=== PATIENT | female | born 1945 | race Caucasian/White ===

== ENCOUNTER → 2017-05-08 09:48 | Outpatient (CLI) | payer MEDICARE, OTHER, SELFPAY ==
[2017-05-08 10:32] LABS: Absolute Lymphocyte Count 1.35 X10^3/ul (0.83-4.51); Absolute Neutrophil Count 5.4 X10^3/uL (2.0-7.7); Basophil# 0.03 X10^3/uL; Basophil% 0.4 % (0-1); Eosinophil# 0.33 X10^3/uL; Hematocrit 36.7 % (37-47); Hemoglobin 11.5 g/dl (12.0-15.0); Lymphocyte # 1.35 X10^3/ul (4.0); Lymphocyte % 16.5 % (19-41); Mean Corp Hgb Conc 31.3 g/gl (32-36); Mean Corpuscular Volume 89.3 fL (81-99); Mean Platelet Vol. 10.3 fl (6.2-12.0); Monocyte# 0.97 X10^3/uL; Monocyte% 11.9 % (0-10); Neutrophil # 5.42 X10^3/uL (2.7-7.7); Neutrophil % 66.5 % (47-70); Platelet Count 445 K/mm3 (150-450); RBC Distribution Width CV 15.9 % (11.6-14.6); RBC Distribution Width SD 51.4 fl (35.1-43.9); Red Blood Count 4.11 M/mm3 (4.2-5.4); White Blood Count 8.2 K/mm3 (4.4-11.0)
[2017-05-08 10:34] LABS: POSITIVE COUNT NO; POSITIVE DIFFERENTIAL NO; POSITIVE MORPHOLOGY NO
[2017-05-08 11:05] LABS: ALB/GLOB Ratio 0.8 RATIO (0.9-2.4); AST(SGOT) 27 U/L (15-37); Alanine Aminotransfer ALT/SGPT 18 U/L (13-56); Albumin, Serum 3.2 g/dL (3.2-5.0); Alkaline Phosphatase 79 U/L (45-117); Anion Gap 7 (5-15); BUN 16 mg/dL (7-18); BUN/Creat Ratio 9.5 RATIO (10-20); Calcium,Total 9.1 mg/dL (8.5-10.1); Chloride 104 mmol/L (98-107); Creatinine, Serum 1.68 mg/dL (0.55-1.02); EST Glomerular Filtration Rate 32 mL/min (>60); Est Glom Filt Rate - Afr Amer 38 mL/min (>60); Glucose 90 mg/dL (74-106); Potassium 4.6 mmol/L (3.5-5.1); Protein, Total 7.2 g/dL (6.4-8.2); Sodium Level 140 mmol/L (136-145)
== END ==
PROVIDERS: Family Provider Family Medicine; PCP Family Medicine; Visit Provider Internal Medicine Rheumatology
DX: M06.4 Inflammatory polyarthropathy (principal); M15.9 Polyosteoarthritis, unspecified; M72.0 Palmar fascial fibromatosis [Dupuytren]; M25.511 Pain in right shoulder; Z79.899 Other long term (current) drug therapy
CPT/HCPCS: 36415; 80053; 85025

== ENCOUNTER → 2017-08-14 10:46 | Outpatient (CLI) | payer MEDICARE, OTHER, SELFPAY ==
--- NOTE | 2017-08-14 10:46 | DT_ITS ---
This patient was seen during an EMR downtime August 13, 2017 - August 20, 2017. This patient may have a combination of paper and electronic documentation or all paper documentation. All documentation is viewable within the e-chart portion of [facility] for each patient visit.
[2017-08-20 16:29] LABS: White Blood Count 6.7 K/mm3 (4.4-11.0)
[2017-08-20 16:30] LABS: Hematocrit 37.7 % (37-47); Hemoglobin 11.8 g/dl (12.0-15.0); Mean Corp Hgb Conc 31.3 g/gl (32-36); Mean Corpuscular Hgb 28.6 pg (27.0-32.0); Mean Corpuscular Volume 91.5 fL (81-99); Mean Platelet Vol. 10.1 fl (6.2-12.0); POSITIVE COUNT NO; POSITIVE DIFFERENTIAL NO; POSITIVE MORPHOLOGY NO; Platelet Count 423 K/mm3 (150-450); RBC Distribution Width CV 16.1 % (11.6-14.6); RBC Distribution Width SD 53.1 fl (35.1-43.9); Red Blood Count 4.12 M/mm3 (4.2-5.4)
[2017-08-20 16:31] LABS: Absolute Neutrophil Count 4.4 X10^3/uL (2.0-7.7); Basophil# 0.06 X10^3/uL; Basophil% 0.9 % (0-1); Eosinophil# 0.23 X10^3/uL; Eosinophils% 3.5 % (0-5); Lymphocyte % 16.5 % (19-41); Monocyte# 0.81 X10^3/uL; Monocyte% 12.2 % (0-10)
[2017-08-20 17:25] LABS: ALB/GLOB Ratio 0.8 RATIO (0.9-2.4); AST(SGOT) 21 U/L (15-37); Alanine Aminotransfer ALT/SGPT 18 U/L (13-56); Albumin, Serum 3.2 g/dL (3.2-5.0); Alkaline Phosphatase 71 U/L (45-117); Anion Gap 7 (5-15); BUN 17 mg/dL (7-18); BUN/Creat Ratio 9.8 RATIO (10-20); Calcium,Total 9.1 mg/dL (8.5-10.1); Chloride 107 mmol/L (98-107); Creatinine, Serum 1.74 mg/dL (0.55-1.02); EST Glomerular Filtration Rate 30 mL/min (>60); Est Glom Filt Rate - Afr Amer 36 mL/min (>60); Globulin 3.9 g/dL (2.2-4.2); Glucose 90 mg/dL (74-106); Potassium 4.4 mmol/L (3.5-5.1); Protein, Total 7.1 g/dL (6.4-8.2); Sodium Level 143 mmol/L (136-145)
== END ==
PROVIDERS: Family Provider Family Medicine; PCP Family Medicine; Visit Provider Internal Medicine Rheumatology
DX: M06.4 Inflammatory polyarthropathy (principal); M15.9 Polyosteoarthritis, unspecified; M25.511 Pain in right shoulder; M72.0 Palmar fascial fibromatosis [Dupuytren]; E78.5 Hyperlipidemia, unspecified; I26.99 Other pulmonary embolism without acute cor pulmonale; C44.202 Unspecified malignant neoplasm of skin of right ear and external auricular canal; I12.9 Hypertensive chronic kidney disease with stage 1 through stage 4 chronic kidney disease, or unspecified chronic kidney disease; N18.9 Chronic kidney disease, unspecified; Z79.899 Other long term (current) drug therapy
CPT/HCPCS: 36415; 80053; 85025

== ENCOUNTER → 2017-10-30 11:30 | Outpatient (CLI) | payer MEDICARE, OTHER, SELFPAY ==
[2017-10-30 12:22] LABS: Absolute Neutrophil Count 5.8 X10^3/uL (2.0-7.7); Basophil# 0.05 X10^3/uL; Basophil% 0.6 % (0-1); Eosinophil# 0.34 X10^3/uL; Eosinophils% 4.1 % (0-5); Hematocrit 32.5 % (37-47); Hemoglobin 10.1 g/dl (12.0-15.0); Lymphocyte % 14.4 % (19-41); Mean Corp Hgb Conc 31.1 g/gl (32-36); Mean Corpuscular Hgb 28.1 pg (27.0-32.0); Mean Corpuscular Volume 90.5 fL (81-99); Mean Platelet Vol. 10.5 fl (6.2-12.0); Monocyte# 0.95 X10^3/uL; Monocyte% 11.4 % (0-10); Neutrophil # 5.78 X10^3/uL (2.7-7.7); Neutrophil % 69.1 % (47-70); Platelet Count 419 K/mm3 (150-450); RBC Distribution Width CV 15.4 % (11.6-14.6); RBC Distribution Width SD 50.1 fl (35.1-43.9); Red Blood Count 3.59 M/mm3 (4.2-5.4); White Blood Count 8.4 K/mm3 (4.4-11.0)
[2017-10-30 12:23] LABS: POSITIVE COUNT NO; POSITIVE DIFFERENTIAL NO; POSITIVE MORPHOLOGY NO
[2017-10-30 12:54] LABS: ALB/GLOB Ratio 0.8 RATIO (0.9-2.4); AST(SGOT) 22 U/L (15-37); Alanine Aminotransfer ALT/SGPT 17 U/L (13-56); Alkaline Phosphatase 71 U/L (45-117); Anion Gap 9 (5-15); BUN 19 mg/dL (7-18); BUN/Creat Ratio 10.5 RATIO (10-20); Calcium,Total 8.9 mg/dL (8.5-10.1); Chloride 110 mmol/L (98-107); Creatinine, Serum 1.81 mg/dL (0.55-1.02); EST Glomerular Filtration Rate 29 mL/min (>60); Est Glom Filt Rate - Afr Amer 35 mL/min (>60); Globulin 3.8 g/dL (2.2-4.2); Glucose 87 mg/dL (74-106); Potassium 3.3 mmol/L (3.5-5.1); Protein, Total 6.8 g/dL (6.4-8.2); Sodium Level 146 mmol/L (136-145)
== END ==
PROVIDERS: Family Provider Family Medicine; PCP Family Medicine; Visit Provider Internal Medicine Rheumatology
DX: M06.4 Inflammatory polyarthropathy (principal); M72.0 Palmar fascial fibromatosis [Dupuytren]; M15.9 Polyosteoarthritis, unspecified; M25.511 Pain in right shoulder; Z79.899 Other long term (current) drug therapy
CPT/HCPCS: 36415; 80053; 85025

== ENCOUNTER → 2017-11-27 10:46 | Outpatient (CLI) | payer MEDICARE, OTHER, SELFPAY ==
[2017-11-27 12:15] LABS: Absolute Lymphocyte Count 1.09 X10^3/ul (0.83-4.51); Absolute Neutrophil Count 6.3 X10^3/uL (2.0-7.7); Basophil# 0.02 X10^3/uL; Basophil% 0.2 % (0-1); Eosinophil# 0.28 X10^3/uL; Eosinophils% 3.1 % (0-5); Hematocrit 38.3 % (37-47); Immature Platelet Fraction 1.2 % (1.0-7.9); Lymphocyte # 1.09 X10^3/ul (4.0); Lymphocyte % 12.2 % (19-41); Mean Corp Hgb Conc 31.3 g/gl (32-36); Mean Corpuscular Hgb 27.4 pg (27.0-32.0); Mean Corpuscular Volume 87.4 fL (81-99); Monocyte# 1.19 X10^3/uL; Monocyte% 13.4 % (0-10); Neutrophil # 6.31 X10^3/uL (2.7-7.7); Neutrophil % 70.9 % (47-70); Platelet Count 472 K/mm3 (150-450); RBC Distribution Width CV 15.7 % (11.6-14.6); RBC Distribution Width SD 49.6 fl (35.1-43.9); RET-HE 29.5 pg (30-35); Red Blood Count 4.38 M/mm3 (4.2-5.4); Reticulocyte Count 1.26 % (0.5-1.5); White Blood Count 8.9 K/mm3 (4.4-11.0)
[2017-11-27 12:30] LABS: POSITIVE COUNT NO; POSITIVE DIFFERENTIAL NO; POSITIVE MORPHOLOGY NO
[2017-11-27 12:58] LABS: Anion Gap 10 (5-15); BUN 14 mg/dL (7-18); Calcium,Total 9.4 mg/dL (8.5-10.1); Chloride 105 mmol/L (98-107); Creatinine, Serum 1.76 mg/dL (0.55-1.02); EST Glomerular Filtration Rate 30 mL/min (>60); Est Glom Filt Rate - Afr Amer 36 mL/min (>60); Ferritin 27 ng/mL (8-252); Glucose 84 mg/dL (74-106); Iron 36 ug/dL (50-170); Potassium 3.2 mmol/L (3.5-5.1); Sodium Level 141 mmol/L (136-145)
[2017-11-27 13:15] LABS: Vitamin B12 > 2000 pg/mL (211-911)
[2017-11-27 15:43] LABS: Microalbumin,Random Urine 87.3 mg/L (NO RANGE EST.); Microalbumin:Creatinine Ratio 48.5 mg/g CRE (<30 mg/g CRE)
== END ==
PROVIDERS: Family Provider Family Medicine; PCP Family Medicine; Visit Provider Family Medicine
DX: I12.9 Hypertensive chronic kidney disease with stage 1 through stage 4 chronic kidney disease, or unspecified chronic kidney disease (principal); N18.4 Chronic kidney disease, stage 4 (severe); D63.1 Anemia in chronic kidney disease
CPT/HCPCS: 36415; 80048; 82043; 82570; 82607; 82728; 83540; 85025; 85045

== ENCOUNTER → 2018-01-28 13:08 | Outpatient (CLI) | payer MEDICARE, OTHER, SELFPAY ==
[2018-01-28 14:07] LABS: Absolute Lymphocyte Count 1.47 X10^3/ul (0.83-4.51); Absolute Neutrophil Count 7.3 X10^3/uL (2.0-7.7); Basophil# 0.03 X10^3/uL; Basophil% 0.3 % (0-1); Eosinophil# 0.32 X10^3/uL; Eosinophils% 3.1 % (0-5); Hematocrit 36.3 % (37-47); Hemoglobin 11.2 g/dl (12.0-15.0); Lymphocyte # 1.47 X10^3/ul (4.0); Lymphocyte % 14.4 % (19-41); Mean Corp Hgb Conc 30.9 g/gl (32-36); Mean Corpuscular Hgb 27.4 pg (27.0-32.0); Mean Corpuscular Volume 88.8 fL (81-99); Mean Platelet Vol. 10.2 fl (6.2-12.0); Monocyte# 0.99 X10^3/uL; Monocyte% 9.7 % (0-10); Neutrophil # 7.28 X10^3/uL (2.7-7.7); Neutrophil % 71.5 % (47-70); Platelet Count 499 K/mm3 (150-450); RBC Distribution Width CV 16.3 % (11.6-14.6); RBC Distribution Width SD 51.9 fl (35.1-43.9); Red Blood Count 4.09 M/mm3 (4.2-5.4); White Blood Count 10.2 K/mm3 (4.4-11.0)
[2018-01-28 14:08] LABS: POSITIVE COUNT NO; POSITIVE DIFFERENTIAL NO; POSITIVE MORPHOLOGY NO
[2018-01-28 14:34] LABS: ALB/GLOB Ratio 0.8 RATIO (0.9-2.4); AST(SGOT) 20 U/L (15-37); Alanine Aminotransfer ALT/SGPT 15 U/L (13-56); Albumin, Serum 3.2 g/dL (3.2-5.0); Alkaline Phosphatase 98 U/L (45-117); Anion Gap 10 (5-15); BUN 14 mg/dL (7-18); Calcium,Total 9.2 mg/dL (8.5-10.1); Chloride 107 mmol/L (98-107); Creatinine, Serum 1.74 mg/dL (0.55-1.02); EST Glomerular Filtration Rate 30 mL/min (>60); Est Glom Filt Rate - Afr Amer 37 mL/min (>60); Globulin 4.1 g/dL (2.2-4.2); Glucose 88 mg/dL (74-106); Potassium 4.8 mmol/L (3.5-5.1); Protein, Total 7.3 g/dL (6.4-8.2); Sodium Level 143 mmol/L (136-145)
[2018-01-28 14:38] LABS: Vitamin D,25 Hydroxy 42.2 ng/mL (29.95-100.01)
== END ==
PROVIDERS: Family Provider Family Medicine; PCP Family Medicine; Referring Provider Internal Medicine Nephrology; Visit Provider Internal Medicine Nephrology
DX: I12.9 Hypertensive chronic kidney disease with stage 1 through stage 4 chronic kidney disease, or unspecified chronic kidney disease (principal); N18.3 Chronic kidney disease, stage 3 (moderate); M06.4 Inflammatory polyarthropathy; C44.202 Unspecified malignant neoplasm of skin of right ear and external auricular canal; M15.9 Polyosteoarthritis, unspecified; M25.511 Pain in right shoulder; M72.0 Palmar fascial fibromatosis [Dupuytren]; E78.5 Hyperlipidemia, unspecified; Z86.711 Personal history of pulmonary embolism
CPT/HCPCS: 36415; 80053; 82306; 85025

== ENCOUNTER → 2018-02-14 06:36 | Outpatient (CLI) | payer MEDICARE, OTHER, SELFPAY ==
--- NOTE | 2018-02-14 06:40 | CT_ITS ---
STUDY: CT RIGHT SHOULDER REASON FOR EXAM: Pain, osteoarthritis, surgical planning. TECHNIQUE: The patient was scanned in a multi detector CT scanner. High resolution transaxial imaging was performed without the administration of intravenous contrast material. Sagittal and coronal images were reconstructed. Individualized dose optimization techniques were used for this CT. COMPARISON: Radiographs 11/15/2016. FINDINGS: There is joint space narrowing of the glenohumeral articulation (coronal reconstructions 35-38) and small marginal osteophytes of the medial humeral head. Normal glenoid rim, neck and visualized scapula. Normal humeral head, neck and tuberosities. There is superior migration of the humeral head abutting the acromion (sagittal reconstructions 28-31) consistent with retracted rotator cuff tear. There is acromioclavicular arthrosis with a small undersurface osteophyte of the distal clavicle (coronal reconstructions 34, 35). There is a Type III morphology (anterior hook) (sagittal reconstruction 31), with a neutral orientation. There is a glenohumeral joint effusion with small intra-articular bodies (coronal reconstruction 29; axial image 69). There is atrophy with fat replacement of the supraspinatus, infraspinatus and subscapularis muscles (sagittal reconstruction 49). There is scarring in the right lung apex (coronal reconstructions 49-53). 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 Superior migration of the humeral head consistent with retracted rotator cuff tear with atrophy of the supraspinatus, infraspinatus and subscapularis muscles. Acromioclavicular arthrosis. Electronically Signed: Paxton Guy MD at 10:23 EST Tel , Service support ,
== END ==
PROVIDERS: Family Provider Family Medicine; PCP Family Medicine; Referring Provider Specialist; Visit Provider Specialist
DX: M19.211 Secondary osteoarthritis, right shoulder (principal)
CPT/HCPCS: 73200

== ENCOUNTER → 2018-03-18 11:14 | Outpatient (CLI) | payer MEDICARE, OTHER, SELFPAY ==
[2018-03-18 13:51] LABS: Anion Gap 10 (5-15); BUN 13 mg/dL (7-18); BUN/Creat Ratio 6.8 RATIO (10-20); Calcium,Total 9.2 mg/dL (8.5-10.1); Chloride 105 mmol/L (98-107); Creatinine, Serum 1.91 mg/dL (0.55-1.02); EST Glomerular Filtration Rate 27 mL/min (>60); Est Glom Filt Rate - Afr Amer 33 mL/min (>60); Glucose 80 mg/dL (74-106); Potassium 4.1 mmol/L (3.5-5.1); Sodium Level 140 mmol/L (136-145)
[2018-03-18 14:04] LABS: Absolute Lymphocyte Count 1.42 X10^3/ul (0.83-4.51); Absolute Neutrophil Count 6.8 X10^3/uL (2.0-7.7); Basophil# 0.03 X10^3/uL; Basophil% 0.3 % (0-1); Eosinophil# 0.12 X10^3/uL; Eosinophils% 1.3 % (0-5); Hematocrit 39.3 % (37-47); Lymphocyte # 1.42 X10^3/ul (4.0); Lymphocyte % 15.1 % (19-41); Mean Corp Hgb Conc 30.5 g/gl (32-36); Mean Corpuscular Hgb 27.1 pg (27.0-32.0); Mean Corpuscular Volume 88.7 fL (81-99); Mean Platelet Vol. 10.6 fl (6.2-12.0); Monocyte% 10.7 % (0-10); Neutrophil # 6.77 X10^3/uL (2.7-7.7); Neutrophil % 72.2 % (47-70); Platelet Count 454 K/mm3 (150-450); RBC Distribution Width CV 15.7 % (11.6-14.6); Red Blood Count 4.43 M/mm3 (4.2-5.4); White Blood Count 9.4 K/mm3 (4.4-11.0)
[2018-03-18 14:07] LABS: POSITIVE COUNT NO; POSITIVE DIFFERENTIAL NO; POSITIVE MORPHOLOGY NO
== END ==
PROVIDERS: Family Provider Family Medicine; PCP Family Medicine; Referring Provider Physician Assistant Surgical; Visit Provider Physician Assistant Surgical
DX: Z01.818 Encounter for other preprocedural examination (principal); Z01.810 Encounter for preprocedural cardiovascular examination
CPT/HCPCS: 36415; 80048; 85025

== ENCOUNTER → 2018-03-27 15:26 | Outpatient (CLI) | payer MEDICARE, OTHER, SELFPAY ==
[2018-03-29 16:12] LABS: Endomysial Antibody IgA Negative (Negative)
[2018-03-30 11:17] LABS: Immunoglobulin A 92 mg/dL (64-422); t-Transglutaminase IgA <2 U/mL (0-3)
--- OUTSIDE RECORDS SUMMARY | 2018-06-01 14:48 | XMS RPT_ITS ---
:1945 Author Organization OHIP Care Team Providers Name Role Phone FRANC LOPEZ MD Attending Unavailable FLACA CABRERA MD. LILY Barragan Consulting Unavailable FRANC LOPEZ MD Admitting Unavailable FRANC LOPEZ MD Attending Unavailable Jose Leahy PA-C Attending Unavailable Jose Leahy PA-C Referring Unavailable Beka, Uriah Primary [facility] Unavailable Franc Lopez Consulting Unavailable Gagan Silver Attending Unavailable Gagan Silver Referring Unavailable Beka, Uriah Primary Care Unavailable Madeleine Avalos Attending Unavailable Madeleine Avalos Referring Unavailable BekaUriah Primary Care Unavailable [facility]Uri[facility] Vellanki, Madeleine Attending Unavailable Vellanki, Madeleine Referring Unavailable BekaUriah byrd Primary Care Unavailable Vellanki, Madeleine Attending Unavailable Vellanyuri, Madeleine Referring Unavailable BekaUriah byrd Primary Care Unavailable Yudith Rader Attending Unavailable Beka, Uriah Primary Care Unavailable GaryYudith Referring Unavailable Vellanki, Madeleine Consulting Unavailable Franc Lopez Attending Unavailable Franc Lopez Referring Unavailable BekaUriah byrd Primary Care Unavailable PROBLEMS PROBLEMS DATE TYPE CONDITION / CODE ATTENDING STATUS SOURCE 03/18/2018 Unknown Z01.818 - Encounter Esgrantaucristhian [facility] for other Jose RAJPUT [facility] preprocedural Hospital examination / Repository Z01.818(ICD-10) 11/27/2017 Unknown N18.4 - Chronic Uriah Ireland [facility] kidney disease, stage Community 4 (severe) / Hospital N18.4(ICD-10) Repository 11/27/2017 Unknown I10 - Essential Uriah Ireland [facility] (primary) [facility] hypertension / Hospital I10(ICD-10) Repository 11/27/2017 Unknown D63.1 - Anemia in Uriah Ireland [facility] chronic kidney Community disease / Hospital D63.1(ICD-10) Repository 10/30/2017 Unknown 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 / Community M06.4(ICD-10) Hospital Repository 10/30/2017 Unknown Z79.899 - Other long Madeleine Avalos [facility] term (current) drug Community therapy / Hospital Z79.899(ICD-10) Repository 10/30/2017 Unknown M25.511 - Pain in Madeleine Avalos [facility] right shoulder / Community M25.511(ICD-10) Hospital Repository PROCEDURES PROCEDURES No Procedure Records FoundRESULTS RESULTS CBC Collected: 04/03/2018 Status: F Source: [facility] 5:33 AM [facility] REPOSITORY TYPE CODE TESTS RESULT OUT OF REFERENCE UNITS RANGE LAB WBC(LOINC) 4.60-10.80 10 3/mcL High WBC 13.00 LAB RBCCT(LOINC 4.20-5.40 10 6/mcL ) Low RBC 3.62 LAB HGB(LOINC) 12.0-16.0 G/dL Low Hgb 9.8 LAB HCT(LOINC) 37.0-47.0 % Low Hct 31.0 LAB MCV(LOINC) 80.0-94.0 fL MCV 85.7 LAB MCH(LOINC) 27.0-31.2 pg MCH 27.2 LAB MCHC(LOINC) 33.0-37.0 G/dL Low MCHC 31.7 LAB RDW(LOINC) 11.5-14.5 % High RDW 15.6 LAB PLT(LOINC) 130-400 10 3/mcL Platelet 360 LAB MPV(LOINC) 7.4-10.4 fL MPV 8.4 Performed By: #### CBC, ADIFF, ANEU #### [address] [address] #### BMP, GFR #### [address] [address] .AUTO DIFF Collected: 04/03/2018 Status: F Source: [facility] 5:33 [facility] [place] REPOSITORY TYPE CODE TESTS RESULT OUT OF REFERENCE UNITS RANGE LAB PROSPER(LOINC) 37.0-80.0 % High Neutrophil % 91.5 LAB LYM(LOINC) 10.0-50.0 % Low Lymphocyte % 4.7 LAB MON(LOINC) 1.7-13.0 % Monocyte % 3.7 LAB EO(LOINC) 0.0-7.0 % Eosinophil % 0.0 LAB BAS(LOINC) 0.0-2.5 % Basophil % 0.1 LAB ABLYM(LOIN 0.77-3.85 10 3/mcL C) Low Lymphocyte, 0.60 Absolute LAB JESSI(LOINC 0.15-1.00 10 3/mcL ) Monocyte, 0.50 Absolute LAB AEOS(LOINC 0.00-0.40 10 3/mcL ) Eosinophil, 0.00 Absolute LAB ABAS(LOINC 0.00-0.19 10 3/mcL ) Basophil, 0.00 Absolute Performed By: #### CBC, ADIFF, ANEU #### [address] [address] #### BMP, GFR #### [address] [address] .NEUABS Collected: 04/03/2018 Status: F Source: [facility] 5:33 [facility] [place] REPOSITORY TYPE CODE TESTS RESULT OUT OF REFERENCE UNITS RANGE LAB ANEU(LOINC) 2.85-6.16 10 3/mcL High Neutrophil, 11.90 Absolute Performed By: #### CBC, ADIFF, ANEU #### [address] [address] #### BMP, GFR #### [address] [address] BMP Collected: 04/03/2018 Status: F Source: [facility] 5:33 AM [facility] REPOSITORY TYPE CODE TESTS RESULT OUT OF REFERENCE UNITS RANGE LAB GLU(LOINC) 83-110 mg/dL Glucose High Level 128 LAB NA(LOINC) 136-145 mmol/L Sodium Level 143 LAB K(LOINC) 3.5-5.1 mmol/L Potassium Level 4.3 LAB CL(LOINC) 98-107 mmol/L Chloride High 109 LAB CO2(LOINC) 23-31 mmol/L CO2 23 LAB EBAL(LOINC mEq/L ) Electrolyte Balance 11.0 LAB BUN(LOINC) 7-18 mg/dL BUN 16 LAB CRE(LOINC) 0.55-1.02 mg/dL Creatinine High Lvl (s) 1.75 LAB BC(LOINC) 7-27 ratio BUN/Creatinine 9 Ratio LAB CA(LOINC) 8.4-10.2 mg/dL Low Calcium Lvl 8.3 Performed By: #### CBC, ADIFF, ANEU #### [address] [address] #### BMP, GFR #### [address] [address] .GFR Collected: 04/03/2018 Status: F Source: [facility] 5:33 AM [facility] REPOSITORY TYPE CODE TESTS RESULT OUT OF REFERENCE UNITS RANGE LAB GFRAA(LOINC ml/min/1.73 ) sqm GFR 34 Stateless Result Comment: GFR Population mean for , Non- Americans Ages 20-29 = 116 mL/min/1.73 sq.m. Ages 30-39 = 107 mL/min/1.73 sq.m. Ages 40-49 = 99 mL/min/1.73 sq.m. Ages 50-59 = 93 mL/min/1.73 sq.m. Ages 60-69 = 85 mL/min/1.73 sq.m. Ages 70+ = 75 mL/min/1.73 sq.m. Chronic Kidney Disease: Less than 60 mL/min/1.73 square meters End Stage Renal Disease: Less than 15 mL/min/1.73 square meters LAB GFRNO(LOINC) ml/min/1.73sqm GFR Non- 28 Result Comment: GFR Population mean for , Non- Americans Ages 20-29 = 116 mL/min/1.73 sq.m. Ages 30-39 = 107 mL/min/1.73 sq.m. Ages 40-49 = 99 mL/min/1.73 sq.m. Ages 50-59 = 93 mL/min/1.73 sq.m. Ages 60-69 = 85 mL/min/1.73 sq.m. Ages 70+ = 75 mL/min/1.73 sq.m. Chronic Kidney Disease: Less than 60 mL/min/1.73 square meters End Stage Renal Disease: Less than 15 mL/min/1.73 square meters Performed By: #### CBC, ADIFF, ANEU #### [facility] [address] [place], [place] [address] #### BMP, GFR #### [address] [address] XR SHOULDER MINIMUM 2 Observed: 04/02/2018 Status: F Source: [facility] VIEWS RIGHT 11:34 AM [facility] REPOSITORY ORIGINAL XR SHOULDER MINIMUM 2 VIEWS RIGHT CLINICAL STATEMENT: Status Post Arthroplasty. COMPARISON: None FINDINGS: There is a shoulder prosthesis. The components appear intact and well seated. No acute fracture or dislocation is shown. There are degenerative changes at the acromioclavicular joint. Included intrathoracic contents are unremarkable. Surgical clips are seen in the neck. IMPRESSION: Postoperative changes. Interpreted By: Kisha Jaime MD Preliminary Report By: Kisha Jaime MD Electronically Signed By: Kisha Jaime MD Dictated Date: 04/02/2018 3:35:48 PM Prelim Date: 04/02/2018 3:35:48 PM Sign Date: 04/02/2018 3:36:28 PM CRP Collected: 03/27/2018 Status: F Source: [facility] 3:32 PM [facility] REPOSITORY TYPE CODE TESTS RESULT OUT OF RANGE REFERENCE UNITS LAB L501.6710 0.0-3.0 mg/L High 18.10 C-REACTIVE PROT Result Comment: C-Reactive Protein (CRP) provides useful information for the diagnosis, therapy and monitoring of inflammatory processes and associated diseases. For the evaluation of Relative Risk for Cardiovascular Disease, a High Sensitivity CRP (HSCRP) should be ordered. Performed By: #### L501.6710 #### [facility] [address] [place], [place], [address] CELIAC DISEASE Collected: 03/27/2018 Status: F Source: [facility] 3:32 PM [facility] REPOSITORY TYPE CODE TESTS RESULT OUT OF RANGE REFERENCE UNITS LAB L3200.1400 64-422 mg/dL Normal IMMUNO A 92 Result Comment: Performed at: [facility] [id number] Political Science Research Assistant: Gagan Katz PhD, Phone: [phone] LAB L3416.5623 0-3 U/mL Normal tTG IGA <2 Result Comment: Negative 0 - 3 Weak Positive 4 - 10 Positive >10 Tissue Transglutaminase (tTG) has been identified as the endomysial antigen. Studies have demonstr- ated that endomysial IgA antibodies have over 99% specificity for gluten sensitive enteropathy. LAB L3410.2975 Negative Normal ENDOMYSIAL IGA Negative Performed By: #### L3410.2400 #### [facility] (refer to report for specific site) refer to report for address and phone number BASIC METABOLIC Collected: 03/18/2018 Status: F Source: [place] PROFILE (BMP) 11:18 AM [facility] REPOSITORY TYPE CODE TESTS RESULT OUT OF RANGE REFERENCE UNITS LAB L501.0100 74-106 mg/dL Normal GLU 80 Result Comment: Please note revised GLUCOSE reference range effective 2017. LAB L501.1000 7-18 mg/dL Normal BUN 13 LAB L501.1100 0.55-1.02 mg/dL High CREAT,SERUM 1.91 Result Comment: The validity of the calculated GFR AND GFRAA in patients over 70 years has not been determined. Clinical correlation is essential. LAB L501.1110 >60 mL/min Low EST GFR 27 Result Comment: Non- GFR Calc LAB L501.1115 >60 mL/min Low EST GFR - AA 33 Result Comment: GFR Calc LAB L501.1300 10-20 RATIO Low BUN/CRE 6.8 LAB L501.2200 8.5-10.1 mg/dL Normal CA 9.2 LAB L501.5300 136-145 mmol/L Normal NA 140 LAB L501.5600 3.5-5.1 mmol/L Normal K 4.1 LAB L501.5900 98-107 mmol/L Normal CL 105 LAB L501.6100 21.0-32.0 mmol/L Normal CO2 25.0 LAB L501.6200 5-15 Normal GAP 10 Performed By: #### L500.2500 #### [facility] [address] [place], [place], [id number] CBC W/DIFF, AUTOMATED Collected: 03/18/2018 Status: F Source: [place] 11:18 AM [facility] REPOSITORY TYPE CODE TESTS RESULT OUT OF RANGE REFERENCE UNITS LAB L100.1000 4.4-11.0 K/mm3 Normal WBC 9.4 LAB L100.1200 4.2-5.4 M/mm3 Normal RBC 4.43 LAB L100.1300 12.0-15.0 g/dl Normal HGB 12.0 LAB L100.1400 37-47 % Normal HCT 39.3 LAB L100.1500 81-99 fL Normal MCV 88.7 LAB L100.1600 27.0-32.0 pg Normal MCH 27.1 LAB L100.1700 32-36 g/gl Low MCHC 30.5 LAB L100.1810 11.6-14.6 % High RDW CV 15.7 LAB L100.1820 35.1-43.9 fl High RDW SD 51.0 LAB L100.1900 150-450 K/mm3 High PLT 454 LAB L100.2000 6.2-12.0 fl Normal MPV 10.6 LAB L100.2100 47-70 % High NEUT% 72.2 LAB L100.2200 19-41 % Low LY% 15.1 LAB L100.2300 0-10 % High MONO% 10.7 LAB L100.2400 0-5 % Normal EO% 1.3 LAB L100.2500 0-1 % Normal BASO% 0.3 LAB L100.2550 0.0-0.9 % Normal IM GRAN % 0.400 Result Comment: IG% - Immature Granulocytes (promyelocytes, myelocytes and metamyelocytes) > 1% indicates that a LEFT SHIFT is Present. LAB L100.2620 2.0-7.7 X10 3/uL Normal Absolute Neut 6.8 LAB L100.2720 0.83-4.51 X10 3/ul Normal Absolute Lymph 1.42 Performed By: #### L100.0100 #### [facility] [address] [facility] [place], [address] EXTREMITY UPPER Observed: 02/14/2018 Status: F Source: [place] WITHOUT CONTRA 6:41 AM [facility] REPOSITORY [facility] Imaging Services [address] [place] [address] Extremity Upper without Contra MR#: [id number] Acct: [id number] Name: MARIALUISA FUNES Rep #: [id number] : 1945 F 72 From: Paxton Guy MD PCP: Uriah Ireland DO Status: REG CLI Study: Extremity Upper without Contra Date of Exam: 02/14/18 Exam# [id number] Ordering Dr: Franc Lopez MD STUDY: CT RIGHT SHOULDER REASON FOR EXAM: Pain, osteoarthritis, surgical planning. TECHNIQUE: The patient was scanned in a multi detector CT scanner. High resolution transaxial imaging was performed without the administration of intravenous contrast material. Sagittal and coronal images were reconstructed. Individualized dose optimization techniques were used for this CT. COMPARISON: Radiographs 11/15/2016. FINDINGS: There is joint space narrowing of the glenohumeral articulation (coronal reconstructions 35-38) and small marginal osteophytes of the medial humeral head. Normal glenoid rim, neck and visualized scapula. Normal humeral head, neck and tuberosities. There is superior migration of the humeral head abutting the acromion (sagittal reconstructions 28-31) consistent with retracted rotator cuff tear. There is acromioclavicular arthrosis with a small undersurface osteophyte of the distal clavicle (coronal reconstructions 34, 35). There is a Type III morphology (anterior hook) (sagittal reconstruction 31), with a neutral orientation. There is a glenohumeral joint effusion with small intra-articular bodies (coronal reconstruction 29; axial image 69). There is atrophy with fat replacement of the supraspinatus, infraspinatus and subscapularis muscles (sagittal reconstruction 49). There is scarring in the right lung apex (coronal reconstructions 49-53). 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 Superior migration of the humeral head consistent with retracted rotator cuff tear with atrophy of the supraspinatus, infraspinatus and subscapularis muscles. Acromioclavicular arthrosis. Electronically Signed: Paxton Guy MD at 10:23 EST Tel , Service support , CC: Uriah Ireland DO; Franc Lopez MD Outcomes Analyst: Signed CBC W/DIFF, AUTOMATED Collected: 01/28/2018 Status: F Source: [facility] 1:28 PM [facility] REPOSITORY Order Comment: BMP AND VITD FOR DR RADER TYPE CODE TESTS RESULT OUT OF RANGE REFERENCE UNITS LAB L100.1000 4.4-11.0 K/mm3 Normal WBC 10.2 LAB L100.1200 4.2-5.4 M/mm3 Low RBC 4.09 LAB L100.1300 12.0-15.0 g/dl Low HGB 11.2 LAB L100.1400 37-47 % Low HCT 36.3 LAB L100.1500 81-99 fL Normal MCV 88.8 LAB L100.1600 27.0-32.0 pg Normal MCH 27.4 LAB L100.1700 32-36 g/gl Low MCHC 30.9 LAB L100.1810 11.6-14.6 % High RDW CV 16.3 LAB L100.1820 35.1-43.9 fl High RDW SD 51.9 LAB L100.1900 150-450 K/mm3 High PLT 499 LAB L100.2000 6.2-12.0 fl Normal MPV 10.2 LAB L100.2100 47-70 % High NEUT% 71.5 LAB L100.2200 19-41 % Low LY% 14.4 LAB L100.2300 0-10 % Normal MONO% 9.7 LAB L100.2400 0-5 % Normal EO% 3.1 LAB L100.2500 0-1 % Normal BASO% 0.3 LAB L100.2550 0.0-0.9 % High IM GRAN % 1.000 Result Comment: IG% - Immature Granulocytes (promyelocytes, myelocytes and metamyelocytes) > 1% indicates that a LEFT SHIFT is Present. LAB L100.2620 2.0-7.7 X10 3/uL Normal Absolute Neut 7.3 LAB L100.2720 0.83-4.51 X10 3/ul Normal Absolute Lymph 1.47 Performed By: #### L100.0100 #### [facility] [address] [place], [place] [address]. [place], [place], [address] COMPREHENSIVE METABOLIC Collected: 01/28/2018 Status: F Source: [facility] 1:28 PM [facility] REPOSITORY Order Comment: BMP AND VITD FOR DR RADER TYPE CODE TESTS RESULT OUT OF RANGE REFERENCE UNITS LAB L501.0100 74-106 mg/dL Normal GLU 88 Result Comment: Please note revised GLUCOSE reference range effective 2017. LAB L501.1000 7-18 mg/dL Normal BUN 14 LAB L501.1100 0.55-1.02 mg/dL High CREAT,SERUM 1.74 Result Comment: The validity of the calculated GFR AND GFRAA in patients over 70 years has not been determined. Clinical correlation is essential. LAB L501.1110 >60 mL/min Low EST GFR 30 Result Comment: Non- GFR Calc LAB L501.1115 >60 mL/min Low EST GFR - AA 37 Result Comment: GFR Calc LAB L501.1300 10-20 RATIO Low BUN/CRE 8.0 LAB L501.1500 6.4-8.2 g/dL Normal T PROT 7.3 LAB L501.1800 3.2-5.0 g/dL Normal ALB 3.2 LAB L501.1950 2.2-4.2 g/dL Normal GLOB 4.1 LAB L501.2000 0.9-2.4 RATIO Low A/G 0.8 LAB L501.2200 8.5-10.1 mg/dL Normal CA 9.2 LAB L501.4100 15-37 U/L Normal AST 20 LAB L501.4305 45-117 U/L Normal ALK P 98 LAB L501.4405 13-56 U/L Normal ALT 15 LAB L501.4600 0.20-1.00 mg/dL Normal T BILI 0.40 LAB L501.5300 136-145 mmol/L Normal NA 143 LAB L501.5600 3.5-5.1 mmol/L Normal K 4.8 LAB L501.5900 98-107 mmol/L Normal CL 107 LAB L501.6100 21.0-32.0 mmol/L Normal CO2 26.0 LAB L501.6200 5-15 Normal GAP 10 Performed By: #### L500.4050 #### [facility] [address] [place], [place], [address] VITAMIN D,25 HYDROXY Collected: 01/28/2018 Status: F Source: [place] 1:28 PM [facility] REPOSITORY Order Comment: BMP AND VITD FOR DR RADER TYPE CODE TESTS RESULT OUT OF RANGE REFERENCE UNITS LAB L506.1000 29.95-100.01 ng/mL Normal Vitamin D 42.2 25-OH Result Comment: Vitamin D 25(OH) Status Range Deficiency <20 ng/mL (50nmol/L) Insuffciency 20 - 30 ng/mL (50 - 75 nmol/L) Sufficiency 30 - 100 ng/mL (75 - 250 nmol/L) Toxicity >100 ng/mL (>250 nmol/L) Performed By: #### L506.1000 #### [facility] [address] [place], [place], [address] CBC W/DIFF, AUTOMATED Collected: 11/27/2017 Status: F Source: [place] 10:48 AM [facility] REPOSITORY TYPE CODE TESTS RESULT OUT OF RANGE REFERENCE UNITS LAB L100.1000 4.4-11.0 K/mm3 Normal WBC 8.9 LAB L100.1200 4.2-5.4 M/mm3 Normal RBC 4.38 LAB L100.1300 12.0-15.0 g/dl Normal HGB 12.0 LAB L100.1400 37-47 % Normal HCT 38.3 LAB L100.1500 81-99 fL Normal MCV 87.4 LAB L100.1600 27.0-32.0 pg Normal MCH 27.4 LAB L100.1700 32-36 g/gl Low MCHC 31.3 LAB L100.1810 11.6-14.6 % High RDW CV 15.7 LAB L100.1820 35.1-43.9 fl High RDW SD 49.6 LAB L100.1900 150-450 K/mm3 High PLT 472 LAB L100.2000 6.2-12.0 fl Normal MPV 11.0 LAB L100.2100 47-70 % High NEUT% 70.9 LAB L100.2200 19-41 % Low LY% 12.2 LAB L100.2300 0-10 % High MONO% 13.4 LAB L100.2400 0-5 % Normal EO% 3.1 LAB L100.2500 0-1 % Normal BASO% 0.2 LAB L100.2550 0.0-0.9 % Normal IM GRAN % 0.200 Result Comment: IG% - Immature Granulocytes (promyelocytes, myelocytes and metamyelocytes) > 1% indicates that a LEFT SHIFT is Present. LAB L100.2620 2.0-7.7 X10 3/uL Normal Absolute Neut 6.3 LAB L100.2720 0.83-4.51 X10 3/ul Normal Absolute Lymph 1.09 Performed By: #### L100.0100, L100.9950 #### [facility] [address] [place], [address] RETIC PANEL Collected: 11/27/2017 Status: F Source: [place] 10:48 AM [facility] REPOSITORY TYPE CODE TESTS RESULT OUT OF RANGE REFERENCE UNITS LAB L101.0000 0.5-1.5 % Normal RETIC 1.26 LAB L101.0060 3.00-15.90 % IM Normal RET FRACTION 7.40 LAB L101.0090 30-35 pg Low RET-HE 29.5 LAB L101.0110 1.0-7.9 % Normal IPF 1.2 Result Comment: Low PLT + Low IPF suggest a bone marrow production disorder Low PLT + high IPF suggests peripheral destruction (e.g.ITP, TTP, HIT, DIC, autoimmune) or bone marrow recovery Trending of serial IPF measurements is recommended when evaluating for bone marrow respones Value above normal range indicates an increase in RBC cellular response from bone marrow. Performed By: #### L100.0100, L100.9950 #### [facility] [address] [place], [place], [address] BASIC METABOLIC Collected: 11/27/2017 Status: F Source: [facility] PROFILE (BMP) 10:48 AM [facility] REPOSITORY TYPE CODE TESTS RESULT OUT OF RANGE REFERENCE UNITS LAB L501.0100 74-106 mg/dL Normal GLU 84 Result Comment: Please note revised GLUCOSE reference range effective 2017. LAB L501.1000 7-18 mg/dL Normal BUN 14 LAB L501.1100 0.55-1.02 mg/dL High CREAT,SERUM 1.76 Result Comment: The validity of the calculated GFR AND GFRAA in patients over 70 years has not been determined. Clinical correlation is essential. LAB L501.1110 >60 mL/min Low EST GFR 30 Result Comment: Non- GFR Calc LAB L501.1115 >60 mL/min Low EST GFR - AA 36 Result Comment: GFR Calc LAB L501.1300 10-20 RATIO Low BUN/CRE 8.0 LAB L501.2200 8.5-10.1 mg/dL Normal CA 9.4 LAB L501.5300 136-145 mmol/L Normal NA 141 LAB L501.5600 3.5-5.1 mmol/L Low K 3.2 LAB L501.5900 98-107 mmol/L Normal CL 105 LAB L501.6100 21.0-32.0 mmol/L Normal CO2 26.0 LAB L501.6200 5-15 Normal GAP 10 Performed By: #### L500.2500, L503.6150, L503.6550 #### [facility] [address] [place], [place], [address] IRON Collected: 11/27/2017 Status: F Source: [place] 10:48 AM [facility] REPOSITORY TYPE CODE TESTS RESULT OUT OF RANGE REFERENCE UNITS LAB L503.6150 50-170 ug/dL Low IRON 36 Performed By: #### L500.2500, L503.6150, L503.6550 #### [facility] [address] [place], [address] FERRITIN Collected: 11/27/2017 Status: F Source: [place] 10:48 AM [facility] REPOSITORY TYPE CODE TESTS RESULT OUT OF RANGE REFERENCE UNITS LAB L503.6550 8-252 ng/mL Normal FERRITIN 27 Performed By: #### L500.2500, L503.6150, L503.6550 #### [facility] [address] [place], [address] VITAMIN B12 Collected: 11/27/2017 Status: F Source: [place] 10:48 AM [facility] REPOSITORY TYPE CODE TESTS RESULT OUT OF REFERENCE UNITS RANGE LAB L503.0105 211-911 pg/mL High Vitamin B12 > 2000 Performed By: #### L503.0105 #### [facility] [address] [place], [address] MICROALB:CREAT Collected: 11/27/2017 Status: F Source: [place] RATIO,RANDOM UR 10:48 AM [facility] REPOSITORY TYPE CODE TESTS RESULT OUT OF RANGE REFERENCE UNITS LAB L501.1200 NO RANGE EST. mg/dL Normal UR CREAT 180.00 LAB L502.0500 NO RANGE EST. mg/L Normal 87.3 MICROALBUMIN ,UR LAB L502.0600 <30 mg/g CRE mg/g CRE High 48.5 MALB:CREAT Performed By: #### L502.0250 #### [facility] [address] [place], [address] CBC W/DIFF, AUTOMATED Collected: 10/30/2017 Status: F Source: [place] 11:38 AM [facility] REPOSITORY TYPE CODE TESTS RESULT OUT OF RANGE REFERENCE UNITS LAB L100.1000 4.4-11.0 K/mm3 Normal WBC 8.4 LAB L100.1200 4.2-5.4 M/mm3 Low RBC 3.59 LAB L100.1300 12.0-15.0 g/dl Low HGB 10.1 LAB L100.1400 37-47 % Low HCT 32.5 LAB L100.1500 81-99 fL Normal MCV 90.5 LAB L100.1600 27.0-32.0 pg Normal MCH 28.1 LAB L100.1700 32-36 g/gl Low MCHC 31.1 LAB L100.1810 11.6-14.6 % High RDW CV 15.4 LAB L100.1820 35.1-43.9 fl High RDW SD 50.1 LAB L100.1900 150-450 K/mm3 Normal PLT 419 LAB L100.2000 6.2-12.0 fl Normal MPV 10.5 LAB L100.2100 47-70 % Normal NEUT% 69.1 LAB L100.2200 19-41 % Low LY% 14.4 LAB L100.2300 0-10 % High MONO% 11.4 LAB L100.2400 0-5 % Normal EO% 4.1 LAB L100.2500 0-1 % Normal BASO% 0.6 LAB L100.2550 0.0-0.9 % Normal IM GRAN % 0.400 Result Comment: IG% - Immature Granulocytes (promyelocytes, myelocytes and metamyelocytes) > 1% indicates that a LEFT SHIFT is Present. LAB L100.2620 2.0-7.7 X10 3/uL Normal Absolute Neut 5.8 LAB L100.2720 0.83-4.51 X10 3/ul Normal Absolute Lymph 1.20 Performed By: #### L100.0100 #### [facility] [address] [place] [address]. [place], [place], [address] COMPREHENSIVE METABOLIC Collected: 10/30/2017 Status: F Source: [facility] 11:38 AM [facility] REPOSITORY TYPE CODE TESTS RESULT OUT OF RANGE REFERENCE UNITS LAB L501.0100 74-106 mg/dL Normal GLU 87 Result Comment: Please note revised GLUCOSE reference range effective 2017. LAB L501.1000 7-18 mg/dL High BUN 19 LAB L501.1100 0.55-1.02 mg/dL High CREAT,SERUM 1.81 Result Comment: The validity of the calculated GFR AND GFRAA in patients over 70 years has not been determined. Clinical correlation is essential. LAB L501.1110 >60 mL/min Low EST GFR 29 Result Comment: Non- GFR Calc LAB L501.1115 >60 mL/min Low EST GFR - AA 35 Result Comment: GFR Calc LAB L501.1300 10-20 RATIO Normal BUN/CRE 10.5 LAB L501.1500 6.4-8.2 g/dL T Normal PROT 6.8 LAB L501.1800 3.2-5.0 g/dL Low ALB 3.0 LAB L501.1950 2.2-4.2 g/dL Normal GLOB 3.8 LAB L501.2000 0.9-2.4 RATIO Low A/G 0.8 LAB L501.2200 8.5-10.1 mg/dL CA Normal 8.9 LAB L501.4100 15-37 U/L Normal AST 22 LAB L501.4305 45-117 U/L Normal ALK P 71 LAB L501.4405 13-56 U/L Normal ALT 17 LAB L501.4600 0.20-1.00 mg/dL T Normal BILI 0.40 LAB L501.5300 136-145 mmol/L High NA 146 LAB L501.5600 3.5-5.1 mmol/L Low K 3.3 LAB L501.5900 98-107 mmol/L High CL 110 LAB L501.6100 21.0-32.0 mmol/L Normal CO2 27.0 LAB L501.6200 5-15 Normal GAP 9 Performed By: #### L500.4050 #### [facility] [address] [place], [address] DOWNTIME REPORT Observed: 08/30/2017 Status: F Source: [place] 12:25 PM [facility] REPOSITORY [facility] Medical Records Department [address] [place] [address] Downtime Report MR#: [id number] Acct: [id number] Name: MARINMARIALUISA Alanis Rep #: [id number] : 1945 71 From: Emigdio Clark PCP: Uriah Ireland DO Status: REG CLI This patient was seen during an EMR downtime August 13, 2017 - August 20, 2017. This patient may have a combination of paper and electronic documentation or all paper documentation. All documentation is viewable within the e-chart portion of [facility] for each patient visit. CBC W/DIFF, AUTOMATED Collected: 08/14/2017 Status: F Source: [place] 12:00 AM [facility] REPOSITORY Order Comment: RESULT(S) PREVIOUSLY REPORTED ON MANUAL REQUISITION DURING DOWNTIME. TYPE CODE TESTS RESULT OUT OF RANGE REFERENCE UNITS LAB L100.1000 4.4-11.0 K/mm3 Normal WBC 6.7 LAB L100.1200 4.2-5.4 M/mm3 Low RBC 4.12 LAB L100.1300 12.0-15.0 g/dl Low HGB 11.8 LAB L100.1400 37-47 % Normal HCT 37.7 LAB L100.1500 81-99 fL Normal MCV 91.5 LAB L100.1600 27.0-32.0 pg Normal MCH 28.6 LAB L100.1700 32-36 g/gl Low MCHC 31.3 LAB L100.1810 11.6-14.6 % High RDW CV 16.1 LAB L100.1820 35.1-43.9 fl High RDW SD 53.1 LAB L100.1900 150-450 K/mm3 Normal PLT 423 LAB L100.2000 6.2-12.0 fl Normal MPV 10.1 LAB L100.2100 47-70 % Normal NEUT% 66.0 LAB L100.2200 19-41 % Low LY% 16.5 LAB L100.2300 0-10 % High MONO% 12.2 LAB L100.2400 0-5 % Normal EO% 3.5 LAB L100.2500 0-1 % Normal BASO% 0.9 LAB L100.2550 0.0-0.9 % Normal IM GRAN % 0.900 Result Comment: IG% - Immature Granulocytes (promyelocytes, myelocytes and metamyelocytes) > 1% indicates that a LEFT SHIFT is Present. LAB L100.2620 2.0-7.7 X10 3/uL Normal Absolute Neut 4.4 LAB L100.2720 0.83-4.51 X10 3/ul Normal Absolute Lymph 1.10 Performed By: #### L100.0100 #### [facility] [place], [address] COMPREHENSIVE METABOLIC Collected: 08/14/2017 Status: F [facility] REPOSITORY Order Comment: RESULT(S) PREVIOUSLY REPORTED ON MANUAL REQUISITION DURING DOWNTIME. TYPE CODE TESTS RESULT OUT OF RANGE REFERENCE UNITS LAB L501.0100 74-106 mg/dL Normal GLU 90 Result Comment: Please note revised GLUCOSE reference range effective 2017. LAB L501.1000 7-18 mg/dL Normal BUN 17 LAB L501.1100 0.55-1.02 mg/dL High CREAT,SERUM 1.74 Result Comment: The validity of the calculated GFR AND GFRAA in patients over 70 years has not been determined. Clinical correlation is essential. LAB L501.1110 >60 mL/min Low EST GFR 30 LAB L501.1115 >60 mL/min Low EST GFR - AA 36 LAB L501.1300 10-20 RATIO Low BUN/CRE 9.8 LAB L501.1500 6.4-8.2 g/dL Normal T PROT 7.1 LAB L501.1800 3.2-5.0 g/dL Normal ALB 3.2 LAB L501.1950 2.2-4.2 g/dL Normal GLOB 3.9 LAB L501.2000 0.9-2.4 RATIO Low A/G 0.8 LAB L501.2200 8.5-10.1 mg/dL Normal CA 9.1 LAB L501.4100 15-37 U/L Normal AST 21 LAB L501.4305 45-117 U/L Normal ALK P 71 LAB L501.4405 13-56 U/L Normal ALT 18 LAB L501.4600 0.20-1.00 mg/dL Normal T BILI 0.30 LAB L501.5300 136-145 mmol/L Normal NA 143 LAB L501.5600 3.5-5.1 mmol/L Normal K 4.4 LAB L501.5900 98-107 mmol/L Normal CL 107 LAB L501.6100 21.0-32.0 mmol/L Normal CO2 29.0 LAB L501.6200 5-15 Normal GAP 7 Performed By: #### L500.4050 #### [facility] [address] [place], [address] CBC W/DIFF, AUTOMATED Collected: 05/08/2017 Status: F Source: [place] 9:53 AM [facility] REPOSITORY TYPE CODE TESTS RESULT OUT OF RANGE REFERENCE UNITS LAB L100.1000 4.4-11.0 K/mm3 Normal WBC 8.2 LAB L100.1200 4.2-5.4 M/mm3 Low RBC 4.11 LAB L100.1300 12.0-15.0 g/dl Low HGB 11.5 LAB L100.1400 37-47 % Low HCT 36.7 LAB L100.1500 81-99 fL Normal MCV 89.3 LAB L100.1600 27.0-32.0 pg Normal MCH 28.0 LAB L100.1700 32-36 g/gl Low MCHC 31.3 LAB L100.1810 11.6-14.6 % High RDW CV 15.9 LAB L100.1820 35.1-43.9 fl High RDW SD 51.4 LAB L100.1900 150-450 K/mm3 Normal PLT 445 LAB L100.2000 6.2-12.0 fl Normal MPV 10.3 LAB L100.2100 47-70 % Normal NEUT% 66.5 LAB L100.2200 19-41 % Low LY% 16.5 LAB L100.2300 0-10 % High MONO% 11.9 LAB L100.2400 0-5 % Normal EO% 4.0 LAB L100.2500 0-1 % Normal BASO% 0.4 LAB L100.2550 0.0-0.9 % Normal IM GRAN % 0.700 Result Comment: IG% - Immature Granulocytes (promyelocytes, myelocytes and metamyelocytes) > 1% indicates that a LEFT SHIFT is Present. LAB L100.2620 2.0-7.7 X10 3/uL Normal Absolute Neut 5.4 LAB L100.2720 0.83-4.51 X10 3/ul Normal Absolute Lymph 1.35 Performed By: #### L100.0100 #### [facility] [address] [place], [place], [id number] COMPREHENSIVE METABOLIC Collected: 05/08/2017 Status: F Source: [place] [facility] 9:53 AM [facility] REPOSITORY TYPE CODE TESTS RESULT OUT OF RANGE REFERENCE UNITS LAB L501.0100 74-106 mg/dL Normal GLU 90 Result Comment: Please note revised GLUCOSE reference range effective 2017. LAB L501.1000 7-18 mg/dL Normal BUN 16 LAB L501.1100 0.55-1.02 mg/dL High CREAT,SERUM 1.68 Result Comment: The validity of the calculated GFR AND GFRAA in patients over 70 years has not been determined. Clinical correlation is essential. LAB L501.1110 >60 mL/min Low EST GFR 32 Result Comment: Non- GFR Calc LAB L501.1115 >60 mL/min Low EST GFR - AA 38 Result Comment: GFR Calc LAB L501.1300 10-20 RATIO Low BUN/CRE 9.5 LAB L501.1500 6.4-8.2 g/dL Normal T PROT 7.2 LAB L501.1800 3.2-5.0 g/dL Normal ALB 3.2 LAB L501.1950 2.2-4.2 g/dL Normal GLOB 4.0 LAB L501.2000 0.9-2.4 RATIO Low A/G 0.8 LAB L501.2200 8.5-10.1 mg/dL Normal CA 9.1 LAB L501.4100 15-37 U/L Normal AST 27 LAB L501.4305 45-117 U/L Normal ALK P 79 LAB L501.4405 13-56 U/L Normal ALT 18 Result Comment: Please note revised ALT reference range effective 2017. LAB L501.4600 0.20-1.00 mg/dL Normal T BILI 0.40 LAB L501.5300 136-145 mmol/L Normal NA 140 LAB L501.5600 3.5-5.1 mmol/L Normal K 4.6 LAB L501.5900 98-107 mmol/L Normal CL 104 LAB L501.6100 21.0-32.0 mmol/L Normal CO2 29.0 LAB L501.6200 5-15 Normal GAP 7 Performed By: #### L500.4050 #### [facility] [place], [address] ALLERGIES ALLERGIES No Allergies Records FoundENCOUNTERS ENCOUNTERS ADMIT/DISCHARGE ACCOUNT NUMBER ADMITTING ENCOUNTER LOCATION SOURCE CLASS 04/02/2018/04/03/19 [id number] JOHN FARIAS, Inpatient BBuilding:MS [place] Encounter URRoom: Health 0207Bed: A Foundation Repository 03/27/2018 [id number] [facility] ding:MTLAB Repository 03/18/2018/03/18/19 [id number] Ambulatory BBuilding:OP [place] [facility] Foundation Repository 03/18/2018 [id number] Ambulatory [facility] ding:LAB Repository 02/14/2018 [id number] [facility] ding:CT Repository 01/28/2018 [id number] [facility] ding:LAB Repository 11/27/2017 [id number] [facility] ding:LAB.FUT Repository URE 10/30/2017 [id number] [facility] ding:LAB Repository 08/14/2017 [id number] [facility] ding:LAB Repository 05/08/2017 [id number] [facility] ding:LAB Repository PAYERS PAYERS ENCOUNTER GUARANTOR PAYER SUBSCRIBER SOURCE 04/02/2018 MARIALUISA Thapa REPPDOB: Primary MARIALUISA A REPPDOB: [facility] [id number] Insurance:MEDICARE [id number] [place] [address] Repository SHANNANTHONY FOX Number: THONY NEELY [id number]: [phone] [id number] [id number]: () Date:2018-04-02 [phone] ()Tel: ([phone]) Name:[facility] 000-0000 () Administrators [facility] [place] [address], [place] [address]WA: 04/02/2018 Secondary MARIALUISA A REPPDOB: [facility] Insurance:MEDICAL [id number] [address] Repository [employer]SC[employer] Number: [place] [id number] [address]Zay: (330) Date:2018-04-02 [id number] ()Tel: (000) Name:RHEA Willis 000-0000 () [address], [place] [address]VL: 04/02/2018 Tertiary MARIALUISA A REPPDOB: [facility] Insurance:MEDICARE [id number] [facility] PART A [id number] Repository Number: [place] ID [id number]: (330) Date:2018-04-02 [id number] ()Tel: (000) Name:Jack SAMUEL 000-0000 () [address], [place] [address]JI: 03/27/2018 MARIALUISA A [id number] Primary MARIALUISA A REPPDOB: [place] [facility] [place], Insurance:MEDICARE [id number] [facility] [address]Vqa: PART A [facility] Number: Repository () [id number] Date:2018-03-27 03/27/2018 Secondary MARIALUISA A REPPDOB: [place] Insurance:MEDICAL [id number] [facility] Number: Repository [id number] Date:6567-86-48KL [address], [place] [address]YI: 03/27/2018 Tertiary NOT GIVENUNK [place] Insurance:SELF PAY [facility] Number: Effective Repository Date:2018-03-27 03/18/2018 MARIALUISA A REPPDOB: Primary MARIALUISA A REPPDOB: [facility] Insurance:MEDICARE [id number] [facility] PART B [address] Repository [place] Number: [place] [address]Dht: 330) [id number]: () Date:2018-03-18 - [id number] ()Tel: (000) Name:[facility] 000-0000 (WP) Administrators [facility] [address] [address], [place] [address]XE: 03/18/2018 Secondary MARIALUISA A REPPDOB: [facility] Insurance:MEDICAL [id number] [place] [address] [place] Repository [facility] Number: [place] [id number]: (330) Date:2018-03-180535-92-55Hcfx ()Tel: (000) Name:[address] 000-0000 (WP) [address], [place] [address]RW: 03/18/2018 MARIALUISA A [id number] Primary MARIALUISA A REPPDOB: [place], Insurance:MEDICARE [id number] [facility] [address]Jsq: PART A [facility] Number: Repository () [id number] Date:2018-03-18 03/18/2018 Secondary MARIALUISA A REPPDOB: [place] Insurance:MEDICAL [id number] Number: Repository [id number] Date:5228-61-50[address], [place] [address]AY: 03/18/2018 Tertiary NOT GIVENUNK [place] Insurance:SELF PAY [facility] Number: Effective Repository Date:2018-03-18 02/14/2018 MARIALUISA A [id number] Primary MARIALUISA A REPPDOB: [place] [address], Insurance:MEDICARE [id number] [facility] [address]Qlk: PART A [facility] Number: Repository () [id number] Date:2018-02-11 02/14/2018 Secondary MARIALUISA A REPPDOB: [place] Insurance:FORETHOUGHT [id number] [facility] Number: Repository [id number] Date:2316-91-48FW [address] [address], [place] [address]XG: 02/14/2018 Tertiary NOT GIVENUNK [place] Insurance:SELF PAY [facility] Number: Effective Repository Date:2018-02-11 01/28/2018 MARIALUISA A [id number] Primary MARIALUISA A REPPDOB: [place] [address], Insurance:MEDICARE [id number] [facility] [place] [address]Aza: PART A [facility] Number: Repository () [id number] Date:2018-01-03 01/28/2018 Secondary MARIALUISA A REPPDOB: [place] Insurance:FORETHOUGHT [id number] [facility] Number: Repository [id number] Date:6701-76-72FP [address] [address], [place] [address]IJ: 01/28/2018 Tertiary NOT GIVENUNK [place] Insurance:SELF PAY [facility] Number: Effective Repository Date:2018-01-03 11/27/2017 Marialuisa A [id number] Primary Marialuisa A ReppDOB: [place] [address], Insurance:MEDICARE [id number] [facility] [address]Mbg: PART A [facility] Number: Repository () [id number] Date:2017-05-30 11/27/2017 Secondary Marialuisa A ReppDOB: [place] Insurance:FORETHOUGHT [id number] [facility] Hospital Number: Repository [id number] Date:5806-09-08[address] [address], [place] [address]FR: 11/27/2017 Tertiary NOT GIVENUNK [place] Insurance:SELF PAY [facility] Number: Effective Repository Date:2017-05-30 10/30/2017 Marialuisa A [id number] Primary Marialuisa A ReppDOB: [place] [address], Insurance:MEDICARE [id number] [facility] [place] [address]Olg: PART A [facility] Number: Repository () [id number] Date:2017-10-30 10/30/2017 Secondary Marialuisa A ReppDOB: [place] Insurance:FORETHOUGHT [id number] [facility] LIFE [facility] Hospital Number: Repository [id number] Date:0095-65-73GW [place] [id number], [place] [address]CH: 10/30/2017 Tertiary NOT GIVENUNK [place] Insurance:SELF PAY [facility]: Effective Repository Date:2017-10-30 08/14/2017 Marialuisa A [id number] Primary Marialuisa A ReppDOB: [place] [address], Insurance:MEDICARE [id number] [facility] [place] [address]Ufo: PART A [facility] Number: Repository () [id number] Date:2017-08-14 08/14/2017 Secondary Marialuisa A ReppDOB: [place] Insurance:FORETHOUGHT [id number] [facility] Hospital Number: Repository [id number] Date:5241-43-18EA [place] [id number], [place] [address]ZE: 08/14/2017 Tertiary NOT GIVENUNK [place] Insurance:SELF PAY [facility] Number: Effective Repository Date:2017-08-14 05/08/2017 Marialuisa A [id number] Primary Marialuisa A ReppDOB: [place] [address], Insurance:MEDICARE [id number] [facility] [place] [address]Cbi: PART A [facility] [phone] Number: Repository -4 () [id number] Date:2017-05-08 05/08/2017 Secondary Marialuisa A ReppDOB: [place] Insurance:FORETHOUGHT [id number] [facility] Hospital Number: Repository [id number] Date:7864-77-91FH [place] [id number], [place] [address]ES: 05/08/2017 Tertiary NOT GIVENUNK [place] Insurance:SELF PAY [facility] Number: Effective Repository Date:2017-05-08
== END ==
PROVIDERS: Family Provider Family Medicine; PCP Family Medicine; Referring Provider Internal Medicine Gastroenterology; Visit Provider Internal Medicine Gastroenterology
DX: R19.7 Diarrhea, unspecified (principal)
CPT/HCPCS: 36415; 82784; 83516; 86140; 86255

== ENCOUNTER → 2018-04-15 15:49 | Outpatient (CLI) | payer MEDICARE, OTHER, SELFPAY ==
[2018-04-15 15:52] LABS: Mucous, Urine 0 SEEN /hpf (<or=2+)
[2018-04-15 19:30] LABS: Color, Urine Yellow (Yellow); Glucose, Dipstick Normal (Normal); Ketone-Dipstick Negative (Negative); Leukocyte Esterase-Dipstick 500 /ul (Negative); Nitrite-Dipstick Positive (Negative); Occult Blood-Urine 50 /ul (Negative); Protein-Dipstick 30 mg/dl (Negative); Specific Gravity, Urine 1.015 (1.002-1.030); Urine Bilirubin Dipstick Negative (Negative); Urine Clarity Cloudy (Clear); Urine Urobilinogen Normal (Normal)
[2018-04-15 19:40] LABS: Amorphous Sediment 1+ URATE; Bacteria 4+ /hpf (None Seen); Red Blood Cells-Urine 0-5 SEEN /hpf (0-5); Squamous Epithelial Cells - UA 5-10 SEEN /hpf (5-10); White Blood Cells >100 SEEN /hpf (0-5)
== END ==
PROVIDERS: Family Provider Family Medicine; PCP Family Medicine; Visit Provider Family Medicine
DX: N39.0 Urinary tract infection, site not specified (principal)
CPT/HCPCS: 81001; 87086; 87088; 87186

== ENCOUNTER → 2018-04-30 12:30 | Outpatient (CLI) | payer MEDICARE, OTHER, SELFPAY ==
[2018-04-30 13:36] LABS: Absolute Lymphocyte Count 1.55 X10^3/ul (0.83-4.51); Absolute Neutrophil Count 6.2 X10^3/uL (2.0-7.7); Basophil# 0.04 X10^3/uL; Basophil% 0.4 % (0-1); Eosinophil# 0.32 X10^3/uL; Eosinophils% 3.6 % (0-5); Hematocrit 37.6 % (37-47); Hemoglobin 11.4 g/dl (12.0-15.0); Lymphocyte # 1.55 X10^3/ul (4.0); Lymphocyte % 17.3 % (19-41); Mean Corp Hgb Conc 30.3 g/gl (32-36); Mean Corpuscular Hgb 26.6 pg (27.0-32.0); Mean Corpuscular Volume 87.9 fL (81-99); Mean Platelet Vol. 9.6 fl (6.2-12.0); Monocyte# 0.79 X10^3/uL; Monocyte% 8.8 % (0-10); Neutrophil # 6.22 X10^3/uL (2.7-7.7); Neutrophil % 69.3 % (47-70); Platelet Count 578 K/mm3 (150-450); RBC Distribution Width CV 15.8 % (11.6-14.6); RBC Distribution Width SD 50.3 fl (35.1-43.9); Red Blood Count 4.28 M/mm3 (4.2-5.4)
[2018-04-30 13:42] LABS: POSITIVE COUNT NO; POSITIVE DIFFERENTIAL NO; POSITIVE MORPHOLOGY NO
[2018-04-30 13:58] LABS: ALB/GLOB Ratio 0.8 RATIO (0.9-2.4); AST(SGOT) 14 U/L (15-37); Alanine Aminotransfer ALT/SGPT 13 U/L (13-56); Albumin, Serum 3.2 g/dL (3.2-5.0); Alkaline Phosphatase 102 U/L (45-117); Anion Gap 10 (5-15); BUN 14 mg/dL (7-18); BUN/Creat Ratio 8.6 RATIO (10-20); Calcium,Total 9.5 mg/dL (8.5-10.1); Chloride 107 mmol/L (98-107); Creatinine, Serum 1.62 mg/dL (0.55-1.02); EST Glomerular Filtration Rate 33 mL/min (>60); Est Glom Filt Rate - Afr Amer 40 mL/min (>60); Glucose 99 mg/dL (74-106); Potassium 4.2 mmol/L (3.5-5.1); Protein, Total 7.2 g/dL (6.4-8.2); Sodium Level 143 mmol/L (136-145)
== END ==
PROVIDERS: Family Provider Family Medicine; PCP Family Medicine; Referring Provider Internal Medicine Rheumatology; Visit Provider Internal Medicine Rheumatology
DX: M06.4 Inflammatory polyarthropathy (principal); M15.9 Polyosteoarthritis, unspecified; M25.511 Pain in right shoulder; M72.0 Palmar fascial fibromatosis [Dupuytren]; I12.9 Hypertensive chronic kidney disease with stage 1 through stage 4 chronic kidney disease, or unspecified chronic kidney disease; N18.9 Chronic kidney disease, unspecified; E78.5 Hyperlipidemia, unspecified; I26.99 Other pulmonary embolism without acute cor pulmonale; C44.202 Unspecified malignant neoplasm of skin of right ear and external auricular canal; Z79.899 Other long term (current) drug therapy
CPT/HCPCS: 36415; 80053; 85025

== ENCOUNTER 2018-06-06 08:55 | Day surgery (SDC) | payer MEDICARE, OTHER, SELFPAY ==
[2018-05-23 09:05] VITALS: BMI 21.4
--- NOTE | 2018-06-03 10:25 | EKG12_ITS ---
Test Reason : PRE-OP Blood Pressure : / mmHG Vent. Rate : 072 BPM Atrial Rate : 072 BPM P-R Int : 176 ms QRS Dur : 086 ms QT Int : 396 ms P-R-T Axes : 045 -06 051 degrees QTc Int : 433 ms Normal sinus rhythm Normal ECG Confirmed by SADAF FARIAS, BING ([id number]), digital editor ROBY LOZA ([id number]) on 06/04/2018 1:05:41 PM Referred By: Arian Marie Confirmed By:BING TALAVERA MD
[2018-06-03 11:12] LABS: Hematocrit 36.4 % (37-47); Hemoglobin 11.1 g/dl (12.0-15.0); Mean Corp Hgb Conc 30.5 g/gl (32-36); Mean Corpuscular Hgb 27.2 pg (27.0-32.0); Mean Corpuscular Volume 89.2 fL (81-99); Mean Platelet Vol. 10.4 fl (6.2-12.0); Platelet Count 437 K/mm3 (150-450); RBC Distribution Width CV 16.7 % (11.6-14.6); RBC Distribution Width SD 53.5 fl (35.1-43.9); Red Blood Count 4.08 M/mm3 (4.2-5.4); White Blood Count 8.3 K/mm3 (4.4-11.0)
[2018-06-03 11:13] LABS: Scan Indicated on CBC? Y/N NO
[2018-06-03 11:37] LABS: Anion Gap 4 (5-15); BUN 16 mg/dL (7-18); BUN/Creat Ratio 10.5 RATIO (10-20); Calcium,Total 9.5 mg/dL (8.5-10.1); Chloride 110 mmol/L (98-107); Creatinine, Serum 1.52 mg/dL (0.55-1.02); EST Glomerular Filtration Rate 36 mL/min (>60); Est Glom Filt Rate - Afr Amer 43 mL/min (>60); Glucose 91 mg/dL (74-106); Potassium 3.8 mmol/L (3.5-5.1); Sodium Level 141 mmol/L (136-145)
--- NOTE | 2018-06-06 09:26 | SUR.PREOP ---
FLEETS ENEMA GIVEN 924
[2018-06-06 09:27] VITALS: BP 163/66; PULSE 73; RESP 18; TEMP 37; O2SAT 100; BMI 21.9
--- NOTE | 2018-06-06 11:00 | HEM_PTH ---
PATIENT: MARIALUISA FUNES [place] [facility] [place][id number] AGE/SX: 72/F ROOM: RE06/06/[address]: Dr. Arian Marie MD : 1945 BED: DIS: 06/06/2018 SPEC #: [id number] RECD: 06/06/18 13:52 STATUS: CASSANDRA RECarl #: [id number] PRASANNA: 06/06/18 11:[address]: Arian Marie DEPT: SURGICAL PATHOLOGY RECD BY: Vincent Myles ENTERED: 06/06/18 14:23 SP TYPE: HEMORRHOID OTHR DR: Dr. Uriah Ireland, DO Tissues: A - HEMORRHOIDS B - HEMORRHOIDS C - HEMORRHOIDS Procedures: Surgery Specimen Level III HEADER OPERATION: EUA, hemorrhoidectomy PRE-OP DIAGNOSIS: Hemorrhoids, anal fistula TISSUE SUBMITTED: A - Right anterior lateral hemorrhoids, B - Right posterior lateral hemorrhoids, C - Left anterior lateral hemorrhoids MICROSCOPIC DIAGNOSIS A. Right anterior lateral hemorrhoid: A polypoid fragment of anorectal mucosa with acute and chronic inflammation, focal area of granuloma formation and foreign body giant cell reaction. Focal hyperkeratosis and parakeratosis. See comment. B. Right posterior lateral hemorrhoid: A polypoid fragment of squamous mucosa with edema, acute and chronic inflammation, and granuloma formation. See comment. C. Left anterior lateral hemorrhoid: A polypoid fragment of squamous mucosa with acute and chronic inflammation, abscess, foreign body giant cell reaction and granuloma formation.. Focal hyperkeratosis and parakeratosis. See comment. SJ:rg 06/10/18 COMMENT The findings are consistent with fistula. Clinical correlation and appropriate follow up are necessary. Case has been reviewed in consultation with Dr. Zapata who concurs with the above diagnosis. IDC:AM MICROSCOPIC DESCRIPTION Slides are reviewed. GROSS DESCRIPTION A - Received in fixative is one container labeled with the patient's name and designated right anterior lateral hemorrhoid. The specimen consists of a polypoid pink-velásquez mucosa with attached hemorrhagic submucosal tissue measuring 3 x 2.5 x 2 cm. Visual Developer sections are submitted in one cassette. / AM: 06/06/18 The rest of the specimen is submitted in two more cassettes, 2 & 3. / : 06/07/18 B - Received in fixative is one container labeled with the patient's name and designated right posterior lateral hemorrhoid. The specimen consists of a polypoid pink-velásquez mucosa with attached hemorrhagic submucosal tissue measuring 3.5 x 2 x 1.3 cm. Visual Developer sections are submitted in one cassette. / AM: 06/06/18 The rest of the specimen is submitted in two more cassettes, 2 & 3. / : 06/07/18 C - Received in fixative is one container labeled with the patient's name and designated left anterior lateral hemorrhoid. The specimen consists of two irregular fragments of velásquez distal mucosa with attached submucosal tissue ranging in size from 2 to 3 cm. No mass lesions are identified. Visual Developer sections are submitted in one cassette. / AM: 06/06/18 The rest of the specimen is submitted in two more cassettes, 2 & 3. / SJ: 06/07/18 TC:5 CPT: 94017 x3
[2018-06-06] MEDS: Lubricating Jelly 60 GM Tube 30 GM TOPICAL (11:22)
[2018-06-06] MEDS: Dibucaine 30 GM Tube 1 APPLIC (11:56)
[2018-06-06] MEDS: Bupivacaine 0.25% 30 ML Vial (11:57)
[2018-06-06] MEDS: BUPIVACAINE LIPOSOME/PF 20 ML VIAL OPERA.SITE (11:57)
--- NOTE | 2018-06-06 12:09 | PCM.OPRPT ---
Problem List (1) Anal fistula Status: Acute (2) Hemorrhoids, complicated Status: Acute Report of Operation Date of Procedure: 06/06/18 Pre-Operative Diagnosis: Extensive internal and external hemorrhoids with suspected right anterior lateral fistula in ano Post-Operative Diagnosis: Same Surgery/Procedure Performed:: Examination under anesthesia, attempted right anterior lateral fistulotomy, extensive surgical hemorrhoidectomy x3 stalks Description of Surgical Findings:: Timeout and informed consent was obtained. 72-year-old female was taken the operative room. She underwent general endotracheal intubation anesthesia. He was placed prone on the table with a very careful shoulder chest protection pole flex the table was flexed. Perianal area was prepped with Betadine. Examination revealed right anterior lateral there appear to be a skin wound measuring 9 x 4 mm. Upon gentle inspection with a lacrimal duct probe there appeared to be at tract that extended directly anteriorly. I tried to inject hydrogen peroxide but no point could identify an internal entrance site. There is significant amount of induration and inflammation almost purulent material at the anterior anus. This was mostly anteriorly. There were exuberant external hemorrhoids protruding for approximately 3 cm circumferentially around the anus. I wedge excised the right anterior lateral hemorrhoidal component in conjunction with debriding the external skin at the site of the open wound and indurated tissues. I continue to try to probe the tract but could not find an internal opening and so ceased probing that. I excised the hemorrhoidal tissue with harmonic scalpel taking care to identify the sphincter muscle and protected. In a similar fashion right anterior lateral and left anterior lateral hemorrhoidal stalks were removed. With the right posterior lateral I was able to place an apical suture of 3-0 chromic and partially approximated the mucosa with a running simple and locking suture. There was a significant amount of exuberant external hemorrhoidal tissue that had to be excised leaving the external skin wounds open. At the completion of the procedure a quite radical resection had been performed. Hemostasis was intact. I did not attempt to approximate the external skin to the amount of the resection. There appeared to be adequate anal mucosal remaining though the indurated tissue was noted anteriorly. The eliane-anal area was then anesthetized with 20 cc of Exparel mixed with 30 cc of 0.25% Marcaine. Careful aspiration and injection was performed. Then dibucaine soaked Vaseline gauze was inserted. Sterile covered dressings applied. Sponge and instrument and needle counts were reported the surgery were correct. Blood loss was minimal. Specimens included the hemorrhoids internal and external components submitted individually with locations provided. Drains include the Vaseline dressing. Blood loss minimal. Arian Marie M.D., F.A.C.S. Type of Anesthesia:: General Anesthesiologist: Wen Johnston
[2018-06-06 12:19] VITALS: BP 127/68; BP 163/66; PULSE 85; RESP 16; TEMP 36.3; O2SAT 92
[2018-06-06 12:30] VITALS: BP 163/66; BP 171/83; PULSE 77; RESP 16; O2SAT 98
[2018-06-06 13:00] VITALS: BP 163/66; BP 165/78; PULSE 73; RESP 16; TEMP 36.2; O2SAT 95
--- NOTE | 2018-06-06 13:22 | PCM.DC.REC ---
Discharge Diet: No Restrictions Discharge Activity: Return to Normal Activity, May Not Drive - while you are taking narcotic pain medications. Do not drive, work with heavy equipment or sign legal documents for 24 hours after your surgery. Additional Activity Instructions:: Sitz baths for comfort. May apply dibucaine ointment every 4 hours as needed. Fiber supplement. Mineral oil 30cc orally daily Additional Dressing/Incision Instructions:: May use bathroom wipes as needed Allergies/Adverse Reactions: Allergies Penicillins Allergy (Unknown, Verified 05/30/18 09:02) Unknown Sulfa (Sulfonamide Antibiotics) Allergy (Unknown, Verified 05/30/18 09:02) Unknown Medications to take at Discharge diclofenac 1 % topical gel 2 g TOPICAL ONCE PRN 05/23/18 gabapentin 300 mg capsule 300 mg PO TID PRN 05/23/18 hydrocortisone 2.5 % topical cream with perineal applicator 1 applic RC QD-BID PRN 05/23/18 ipratropium bromide 0.03 % nasal spray 2 spray INTRANASAL BID-TID PRN 05/23/18 kxatbxujpraz-[id number] 6 mg-5 mg-50 mg-1 mg tablet 1 tab PO DAILY tab 05/23/18 pantoprazole 40 mg tablet,delayed release 40 mg PO DAILY 05/23/18 tramadol 50 mg tablet 100 mg PO Q8H PRN tab 05/23/18 triamcinolone acetonide 0.1 % topical cream 1 applic TOPICAL BID PRN 05/23/18 Hydrocodone Bitart/Apap 5-325 [[place] 5MG-325MG] 1 tablet PO Q4H PRN PRN 3 Days #15 tablet 06/06/18 Metronidazole 500 mg PO TID #15 tablet 06/06/18 The following prescriptions were given: Hydrocodone Bitart/Apap 5-325 [[place] 5MG-325MG] 1 tablet PO Q4H PRN PRN 3 Days #15 tablet PRN Reason: Pain Metronidazole 500 mg PO TID #15 tablet Primary Care Physician: Uriah Ireland DO [Primary Care Provider] - Test Results: Test results from this visit will be discussed in further detail at your follow-up appointment, if applicable. Please Follow Up With: Arian Marie MD - [phone] When: Plan to have a follow up approximately 3 weeks after surgery.
[2018-06-06 14:20] VITALS: BP 160/72; BP 163/66; PULSE 87; RESP 16; TEMP 36.7; O2SAT 99
== END 2018-06-06 14:24 | disposition home or self-care (01) ==
LOC: SDC 08:55 → AC 08:56 → MS2 11:30 → AC 13:11
PROVIDERS: Family Provider Family Medicine; PCP Family Medicine; Referring Provider Surgery; Visit Provider Surgery
PROC: (CPT 46260; principal; 2018-06-06 10:45)
DX: K64.8 Other hemorrhoids (principal); K64.4 Residual hemorrhoidal skin tags; I12.9 Hypertensive chronic kidney disease with stage 1 through stage 4 chronic kidney disease, or unspecified chronic kidney disease; N18.4 Chronic kidney disease, stage 4 (severe); M06.9 Rheumatoid arthritis, unspecified; D64.9 Anemia, unspecified; K58.9 Irritable bowel syndrome, unspecified; K21.9 Gastro-esophageal reflux disease without esophagitis; Z79.899 Other long term (current) drug therapy; Z78.0 Asymptomatic menopausal state; Z86.711 Personal history of pulmonary embolism; Z87.19 Personal history of other diseases of the digestive system
CPT/HCPCS: 00902; 46260; 36415; 80048; 85027; 88304; 93005; J7120; J2405

== ENCOUNTER → 2018-07-10 08:54 | Outpatient (CLI) | payer MEDICARE, OTHER, SELFPAY ==
[2018-06-27 08:56] VITALS: BMI 21.9
[2018-07-10 10:20] LABS: BUN 12 mg/dL (7-18); BUN/Creat Ratio 8.5 RATIO (10-20); Calcium,Total 8.7 mg/dL (8.5-10.1); Chloride 110 mmol/L (98-107); Creatinine, Serum 1.42 mg/dL (0.55-1.02); EST Glomerular Filtration Rate 38 mL/min (>60); Est Glom Filt Rate - Afr Amer 46 mL/min (>60); Glucose 94 mg/dL (74-106); Phosphorus 3.8 mg/dL (2.5-4.9); Potassium 3.1 mmol/L (3.5-5.1); Sodium Level 144 mmol/L (136-145)
== END ==
PROVIDERS: Family Provider Family Medicine; PCP Family Medicine; Referring Provider Internal Medicine Nephrology; Visit Provider Internal Medicine Nephrology
DX: N18.3 Chronic kidney disease, stage 3 (moderate) (principal)
CPT/HCPCS: 36415; 80069

== ENCOUNTER → 2018-08-14 12:19 | Outpatient (CLI) | payer MEDICARE, OTHER, SELFPAY ==
[2018-06-27 08:56] VITALS: BMI 21.9
[2018-08-14 13:12] LABS: Absolute Lymphocyte Count 1.15 X10^3/ul (0.83-4.51); Basophil# 0.03 X10^3/uL; Basophil% 0.4 % (0-1); Eosinophil# 0.22 X10^3/uL; Hematocrit 35.5 % (37-47); Hemoglobin 11.2 g/dl (12.0-15.0); Lymphocyte # 1.15 X10^3/ul (4.0); Lymphocyte % 15.7 % (19-41); Mean Corp Hgb Conc 31.5 g/gl (32-36); Mean Corpuscular Hgb 25.9 pg (27.0-32.0); Mean Platelet Vol. 10.4 fl (6.2-12.0); Monocyte# 0.89 X10^3/uL; Monocyte% 12.1 % (0-10); Neutrophil # 5.02 X10^3/uL (2.7-7.7); Neutrophil % 68.4 % (47-70); Platelet Count 458 K/mm3 (150-450); RBC Distribution Width CV 15.7 % (11.6-14.6); Red Blood Count 4.33 M/mm3 (4.2-5.4); White Blood Count 7.3 K/mm3 (4.4-11.0)
[2018-08-14 13:15] LABS: POSITIVE COUNT NO; POSITIVE DIFFERENTIAL NO; POSITIVE MORPHOLOGY NO
[2018-08-14 13:42] LABS: ALB/GLOB Ratio 0.8 RATIO (0.9-2.4); AST(SGOT) 26 U/L (15-37); Alanine Aminotransfer ALT/SGPT 18 U/L (13-56); Albumin, Serum 3.2 g/dL (3.2-5.0); Alkaline Phosphatase 99 U/L (45-117); Anion Gap 7 (5-15); BUN 15 mg/dL (7-18); BUN/Creat Ratio 8.9 RATIO (10-20); Calcium,Total 9.2 mg/dL (8.5-10.1); Chloride 103 mmol/L (98-107); Creatinine, Serum 1.68 mg/dL (0.55-1.02); EST Glomerular Filtration Rate 32 mL/min (>60); Est Glom Filt Rate - Afr Amer 38 mL/min (>60); Globulin 3.8 g/dL (2.2-4.2); Glucose 102 mg/dL (74-106); Potassium 3.9 mmol/L (3.5-5.1); Sodium Level 138 mmol/L (136-145)
== END ==
PROVIDERS: Family Provider Family Medicine; PCP Family Medicine; Referring Provider Internal Medicine Rheumatology; Visit Provider Internal Medicine Rheumatology
DX: M06.4 Inflammatory polyarthropathy (principal); M15.9 Polyosteoarthritis, unspecified; M72.0 Palmar fascial fibromatosis [Dupuytren]; C44.202 Unspecified malignant neoplasm of skin of right ear and external auricular canal; I12.9 Hypertensive chronic kidney disease with stage 1 through stage 4 chronic kidney disease, or unspecified chronic kidney disease; N18.9 Chronic kidney disease, unspecified; E78.5 Hyperlipidemia, unspecified; Z79.899 Other long term (current) drug therapy; Z86.711 Personal history of pulmonary embolism
CPT/HCPCS: 36415; 80053; 85025

== ENCOUNTER → 2018-09-09 14:07 | Outpatient (CLI) | payer MEDICARE, OTHER, SELFPAY ==
[2018-06-27 08:56] VITALS: BMI 21.9
== END ==
PROVIDERS: Family Provider Family Medicine; PCP Family Medicine; Visit Provider Family Medicine
DX: R30.0 Dysuria (principal)
CPT/HCPCS: 87086; 87088; 87186

== ENCOUNTER → 2018-09-11 13:03 | Outpatient (CLI) | payer MEDICARE, OTHER, SELFPAY ==
[2018-06-27 08:56] VITALS: BMI 21.9
== END ==
PROVIDERS: Family Provider Family Medicine; PCP Family Medicine; Referring Provider Surgery; Visit Provider Surgery
DX: R19.7 Diarrhea, unspecified (principal)
CPT/HCPCS: 82274; 83630; 87177; 87209; 87493; 87506

== ENCOUNTER → 2018-11-12 11:21 | Outpatient (CLI) | payer MEDICARE, OTHER, SELFPAY ==
[2018-06-27 08:56] VITALS: BMI 21.9
[2018-11-12 11:48] LABS: Absolute Lymphocyte Count 1.27 X10^3/uL (0.83-4.51); Absolute Neutrophil Count 6.9 X10^3/uL (2.0-7.7); Basophil# 0.03 X10^3/uL; Basophil% 0.3 % (0-1); Eosinophil# 0.36 X10^3/uL; Eosinophils% 3.8 % (0-5); Hematocrit 36.3 % (37-47); Hemoglobin 11.4 g/dL (12.0-15.0); Lymphocyte # 1.27 X10^3/ul (4.0); Lymphocyte % 13.4 % (19-41); Mean Corp Hgb Conc 31.4 g/dL (32-36); Mean Corpuscular Hgb 26.3 pg (27.0-32.0); Mean Corpuscular Volume 83.6 fL (81-99); Mean Platelet Vol. 9.8 fl (6.2-12.0); Monocyte# 0.85 X10^3/uL; Monocyte% 8.9 % (0-10); NRBC Flagged by Analyzer 0 % (0-5); Neutrophil # 6.94 X10^3/uL (2.7-7.7); Platelet Count 505 K/mm3 (150-450); RBC Distribution Width CV 16.6 % (11.6-14.6); Red Blood Count 4.34 M/mm3 (4.2-5.4); White Blood Count 9.5 K/mm3 (4.4-11.0)
[2018-11-12 12:09] LABS: ALB/GLOB Ratio 0.8 RATIO (0.9-2.4); AST(SGOT) 16 U/L (15-37); Alanine Aminotransfer ALT/SGPT 13 U/L (13-56); Albumin, Serum 3.3 g/dL (3.2-5.0); Alkaline Phosphatase 99 U/L (45-117); Anion Gap 7 (5-15); BUN 22 mg/dL (7-18); BUN/Creat Ratio 13.3 RATIO (10-20); Calcium,Total 10.2 mg/dL (8.5-10.1); Chloride 107 mmol/L (98-107); Creatinine, Serum 1.66 mg/dL (0.55-1.02); EST Glomerular Filtration Rate 32 mL/min (>60); Est Glom Filt Rate - Afr Amer 39 mL/min (>60); Glucose 104 mg/dL (74-106); Protein, Total 7.3 g/dL (6.4-8.2); Sodium Level 142 mmol/L (136-145)
== END ==
PROVIDERS: Family Provider Family Medicine; PCP Family Medicine; Referring Provider Internal Medicine Rheumatology; Visit Provider Internal Medicine Rheumatology
DX: M06.4 Inflammatory polyarthropathy (principal); M72.0 Palmar fascial fibromatosis [Dupuytren]; I12.9 Hypertensive chronic kidney disease with stage 1 through stage 4 chronic kidney disease, or unspecified chronic kidney disease; N18.9 Chronic kidney disease, unspecified; E78.5 Hyperlipidemia, unspecified; I26.99 Other pulmonary embolism without acute cor pulmonale; C44.202 Unspecified malignant neoplasm of skin of right ear and external auricular canal; M15.9 Polyosteoarthritis, unspecified; Z79.899 Other long term (current) drug therapy
CPT/HCPCS: 36415; 80053; 85025

== ENCOUNTER → 2019-01-20 10:22 | Outpatient (CLI) | payer MEDICARE, OTHER, SELFPAY ==
[2018-06-27 08:56] VITALS: BMI 21.9
[2019-01-20 12:05] LABS: PTHIN 53.4 pg/mL (18.4-80.1)
[2019-01-20 12:13] LABS: Albumin, Serum 3.3 g/dL (3.2-5.0); BUN 22 mg/dL (7-18); BUN/Creat Ratio 11.8 RATIO (10-20); Calcium,Total 9.1 mg/dL (8.5-10.1); Chloride 104 mmol/L (98-107); Creatinine, Serum 1.87 mg/dL (0.55-1.02); EST Glomerular Filtration Rate 28 mL/min (>60); Est Glom Filt Rate - Afr Amer 34 mL/min (>60); Glucose 83 mg/dL (74-106); Phosphorus 4.1 mg/dL (2.5-4.9); Potassium 3.7 mmol/L (3.5-5.1); Sodium Level 142 mmol/L (136-145)
[2019-01-20 12:16] LABS: Vitamin D,25 Hydroxy 29.6 ng/mL (29.95-100.01)
== END ==
LOC: LAB.FUTURE 10:27 → LAB 10:29
PROVIDERS: Family Provider Family Medicine; PCP Family Medicine; Referring Provider Internal Medicine Nephrology; Visit Provider Internal Medicine Nephrology
DX: N18.3 Chronic kidney disease, stage 3 (moderate) (principal)
CPT/HCPCS: 36415; 80069; 82306; 83970

== ENCOUNTER 2019-02-09 14:55 | Emergency (ER) | payer MEDICARE, OTHER, SELFPAY ==
[2018-06-27 08:56] VITALS: BMI 21.9
[2019-02-09 14:56] VITALS: BP 156/83; PULSE 88; RESP 15; TEMP 36.6; O2SAT 96; BMI 21.0
--- NOTE | 2019-02-09 15:20 | CT_ITS ---
STUDY: CT ABDOMEN AND PELVIS WITH CONTRAST REASON FOR EXAM: Female, 73 years old. Lower abdominal pain RADIATION DOSAGE (If Supplied By Facility): CTDIvol = ( 10.21 ) mGy, DLP = ( 273.91 ) mGycm TECHNIQUE: Transaxial images were obtained from the dome of the diaphragm to the symphysis pubis without oral contrast. 100 ml of 100mL Isovue-370 contrast was administered. Sagittal and coronal images were reconstructed. Individualized dose optimization techniques were used for this CT. COMPARISON: None. FINDINGS: There is an 8 mm nodule in the left lower lobe. The visualized portions of the heart and pericardium are within normal limits. The patient is status post cholecystectomy. The liver is within normal limits. There are no suspicious hepatic lesions. The spleen is normal in size. The pancreas is within normal limits. The adrenal glands are within normal limits. There is moderate right hydroureteronephrosis and mild left hydroureteronephrosis. There are no renal or ureteral stones. There are no focal renal lesions. The urinary bladder is distended. Normal visualized stomach. There is bowel wall thickening in the rectum, consistent with proctitis. There is no bowel obstruction. There is a large amount of stool in the colon and rectal vault, consistent with constipation and fecal impaction. The appendix is not visualized, but there are no findings to suggest acute appendicitis. The aorta is normal in caliber. There are atherosclerotic plaques and calcifications noted in the aorta. There is no abdominal or pelvic free air, free fluid, fluid collection or lymphadenopathy. There are no destructive osseous lesions. There are degenerative changes noted in the spine. CT/Abdomen/Pelvis W IV Cont ONLY IMPRESSION: 8 mm nodule in the left lower lobe. A dedicated chest CT is recommended. Distended urinary bladder with bilateral hydroureteronephrosis, right greater than left. This may be due to a bladder outlet obstruction. No urinary calculi. Bowel wall thickening in the rectum, consistent with proctitis. No bowel obstruction. Constipation and fecal impaction. Electronically Signed: Franc White, at 16:41 EST Tel , Service support ,
[2019-02-09 15:32] LABS: Absolute Lymphocyte Count 1.37 X10^3/uL (0.83-4.51); Basophil# 0.03 X10^3/uL; Basophil% 0.2 % (0-1); Eosinophil# 0.04 X10^3/uL; Eosinophils% 0.3 % (0-5); Hematocrit 39.4 % (37-47); Hemoglobin 12.4 g/dL (12.0-15.0); Lymphocyte # 1.37 X10^3/ul (4.0); Lymphocyte % 9.9 % (19-41); Mean Corp Hgb Conc 31.5 g/dL (32-36); Mean Corpuscular Hgb 25.8 pg (27.0-32.0); Mean Corpuscular Volume 82.1 fL (81-99); Mean Platelet Vol. 9.9 fl (6.2-12.0); Monocyte# 1.34 X10^3/uL; Monocyte% 9.7 % (0-10); NRBC Flagged by Analyzer 0 % (0-5); Neutrophil # 10.99 X10^3/uL (2.7-7.7); Neutrophil % 79.3 % (47-70); Platelet Count 502 K/mm3 (150-450); RBC Distribution Width CV 16.7 % (11.6-14.6); RBC Distribution Width SD 48.7 fl (35.1-43.9); White Blood Count 13.9 K/mm3 (4.4-11.0)
[2019-02-09] MEDS: 0.9% Normal Saline 1,000 ML 125 ML IV (15:38)
[2019-02-09 15:45] LABS: Anion Gap 9 (5-15); BUN 21 mg/dL (7-18); BUN/Creat Ratio 11.4 RATIO (10-20); Chloride 104 mmol/L (98-107); Creatinine, Serum 1.85 mg/dL (0.55-1.02); EST Glomerular Filtration Rate 28 mL/min (>60); Est Glom Filt Rate - Afr Amer 34 mL/min (>60); Estimated Creatinine Clearance 19.83 ml/min; Glucose 105 mg/dL (74-106); Potassium 3.6 mmol/L (3.5-5.1); Sodium Level 140 mmol/L (136-145)
[2019-02-09 17:06] LABS: Bacteria 0 SEEN /hpf (None Seen); Mucous, Urine 0 SEEN /hpf (<or=2+); Red Blood Cells-Urine 0 SEEN /hpf (0-5); Squamous Epithelial Cells - UA 0 SEEN /hpf (5-10); White Blood Cells 0 SEEN /hpf (0-5)
[2019-02-09 17:16] LABS: Color, Urine Yellow (Yellow); Glucose, Dipstick Normal (Normal); Ketone-Dipstick 5 mg/dl (Negative); Leukocyte Esterase-Dipstick Negative /ul (Negative); Nitrite-Dipstick Negative (Negative); Occult Blood-Urine Negative /ul (Negative); Protein-Dipstick Negative (Negative); Urine Bilirubin Dipstick Negative (Negative); Urine Clarity Clear (Clear); Urine Urobilinogen Normal (Normal); Urine pH 6.5 (5.0 - 8.0)
--- NOTE | 2019-02-09 19:17 | ED.VISSUMM ---
- ER Visit Summary Date of Service: 02/09/19 Chief Complaint: Lower abdominal pain plus bowel and bladder incontinence at times. History of Present Illness: The patient is a 73 F history of renal insufficiency and anemia. Status post prior appendectomy, cholecystectomy and hysterectomy. She is also had back surgery for spinal stenosis. Patient states since Sunday she has had lower abdominal pain and at times incontinence primarily of urine. Denies any dysuria. No fever. No vomiting. At times intermittent diarrhea. Physical Examination: Older female no acute distress vital signs are stable afebrile. H EENT exam unremarkable. Neck nontender no lymphadenopathy. Lungs clear to auscultation bilaterally. Heart regular rhythm no murmur. Abdomen is soft she is tender both the left lower quadrant of her bladder bladder does feel distended. The upper quadrants abdomen are nontender there is no signs of bowel obstruction is positive bowel sounds. Right upper right lower quadrant unremarkable. There is no hernia. No obvious masses. Patient moving all 4 extremities. Calves are nontender without edema or cords. Logically she is awake and alert. Has normal motor strength to both upper and lower extremities. Test Results: White count is elevated 13.9 normal hemoglobin 12. Chemistries normal BUN 21 creatinine 1.85 which is her baseline renal insufficiency. UA normal. On the CAT scan her bladder was distended consistent with urinary retention possibly bladder outlet obstruction. There was bilateral hydro-ureter and hydronephrosis. There is also significant stool and constipation in the rectum. Emergency Department Course and Treatment: Patient with lower abdominal pain being worked up. CAT scan labs. Due to the CT findings a bladder scan was obtained which showed more than a liter of fluid in her bladder. I think she is having urinary retention will place a Hernandez catheter. RN to place a Hernandez catheter be at 1400 cc of clear yellow urine out. I think this patient is having urinary retention which may be secondary to the position of her bladder which may have moved after her hysterectomy in the past. On repeat exam her abdomen is completely benign now no longer distended. I discussed all this with the patient. Treatment Plan: Discharge home with a Hernandez leg bag. Follow-up with either urologist Dr. Bond or Dr. Tapia. Disposition: [place] Impression: Acute abdominal pain secondary to urinary retention Acute urinary retention secondary to bladder outlet obstruction suspect anatomic This note was generated with Mention Mobileation software. It may contain incorrect words, spelling, and punctuation that were not noted in review of the chart prior to signing ED Disposition - Plan for ED Patient: Referrals: Uriah Ireland DO [Primary Care Provider] -
--- NOTE | 2019-02-09 19:29 | NURSING ---
BLADDER SCANNED FOR >999ML. BLADDER NOTED TO BE DISTENDED. PENA INSERTED W/OUT DIFFICULTIES. PT REPORTS IMMEDIATE RELIEF.
--- NOTE | 2019-02-09 20:05 | ED.DEP ---
ED Disposition - Plan for ED Patient: Disposition: Home or Assisted Living Instructions: URINARY RETENTION, Female Referrals: Salvador Tapia MD [STAFF PHYSICIAN] - As soon as possible Cony Bond MD [STAFF PHYSICIAN] - As soon as possible Additional Instructions: Call and follow-up with a urologist as soon as possible. I believe the problem is that you are having urinary retention secondary to bladder outlet obstruction. This may or may not be caused by shifting of your bladder. Leave the Hernandez catheter in. Empty it whenever three quarters full.
[2019-02-09 20:31] VITALS: BP 168/81; PULSE 83; RESP 17; O2SAT 97
== END 2019-02-09 20:32 | disposition home or self-care (01) ==
PROVIDERS: Emergency Provider Emergency Medicine; Family Provider Family Medicine; PCP Family Medicine
DX: N32.0 Bladder-neck obstruction (principal); R33.8 Other retention of urine; N18.9 Chronic kidney disease, unspecified; R32 Unspecified urinary incontinence; K59.00 Constipation, unspecified; R19.7 Diarrhea, unspecified; Z79.899 Other long term (current) drug therapy; Z86.2 Personal history of diseases of the blood and blood-forming organs and certain disorders involving the immune mechanism; Z90.49 Acquired absence of other specified parts of digestive tract; Z90.710 Acquired absence of both cervix and uterus
CPT/HCPCS: 51702; 74177; 80048; 81001; 85025; 96360; 96361; 99284; J7030; P9612; Q9967; A4216

== ENCOUNTER → 2019-02-12 09:26 | Outpatient (CLI) | payer MEDICARE, OTHER, SELFPAY ==
[2019-02-11 13:15] VITALS: BMI 21.0
--- NOTE | 2019-02-12 09:33 | RAD_ITS ---
STUDY: X-RAY - ABDOMEN/PELVIS REASON FOR EXAM: Female, 73 years old. Abdominal pain TECHNIQUE: Single AP view of the abdomen / pelvis. COMPARISON: None. FINDINGS: Normal visualized lung bases. There is an unremarkable bowel gas pattern. The visualized liver, spleen and kidneys are grossly normal in size and morphology. Normal soft tissue structures. Dextroscoliosis of the lumbar spine with degenerative disc disease. RAD/Abdomen Single View IMPRESSION: Normal x-ray examination of the abdomen and pelvis. Electronically Signed: Eduar Devries MD at 14:20 EST Tel , Service support ,
== END ==
PROVIDERS: Family Provider Family Medicine; PCP Family Medicine; Referring Provider Urology; Visit Provider Urology
DX: R10.2 Pelvic and perineal pain (principal)
CPT/HCPCS: 74018

== ENCOUNTER → 2019-02-14 10:44 | Outpatient (CLI) | payer MEDICARE, OTHER, SELFPAY ==
[2019-02-11 13:15] VITALS: BMI 21.0
--- NOTE | 2019-02-14 17:13 | NEURO ---
NCS and/or EMG Patient Report HPI: Patient is a 73-year-old female who presented with numbness, tingling and pain with a shocking sensation in upper arms and burning in her arms. Patient does not has H/O neck injury or back injury. Patient has arthritis in hands. Patient also complains of cold hands. Physical Exam: Decreased sensation to light touch noted in both hand fingers. Weakness of both hand finger muscles noted. Findings: 1. Right median sensory nerve response could not be recorded. 2. There is prolongation of the distal latency of the left median sensory nerve response. 3. There is prolongation of the distal latencies of right and left median motor nerve responses along with a decreased nerve conduction velocities and reduced CMAP amplitudes of the right median motor nerve response. 4. Normal needle examination of the bilateral upper extremities including cervical paraspinal muscles. Impression: 1. Findings are consistent with moderately severe right and left median motor mononeuropathies at wrist due to carpal tunnel syndrome. 2. No electrodiagnostic evidence of right or left ulnar neuropathy at elbow. Recommendation: 1. Patient recommended to wear right and left hand splints as much as possible. 2. Patient recommended to avoid repeated both hand movements and avoid sleeping or leaning on elbows. 3. Patient may need surgical release of right and left carpal tunnel syndrome if symptom does not improve.
== END ==
PROVIDERS: Family Provider Family Medicine; PCP Family Medicine; Referring Provider Orthopaedic Surgery; Visit Provider Orthopaedic Surgery
DX: G56.03 Carpal tunnel syndrome, bilateral upper limbs (principal)
CPT/HCPCS: 95886; 95912

== ENCOUNTER → 2019-02-19 11:32 | Outpatient (CLI) | payer MEDICARE, OTHER, SELFPAY ==
[2019-02-11 13:15] VITALS: BMI 21.0
--- NOTE | 2019-02-19 11:36 | US_ITS ---
STUDY: RENAL ULTRASOUND - COMPLETE REASON FOR EXAM: Female, 73 years old. Left flank pain TECHNIQUE: Ultrasound evaluation of the kidneys was performed with real-time and static perry-scale imaging. COMPARISON: 02/09/2019. FINDINGS: Right kidney: Measures 8.0 cm. Normal contour. Renal cortical thickness appears decreased. No cysts. No masses, stones, or hydronephrosis identified. Left kidney: Measures 6.2 cm. Normal contour. Renal cortical thickness appears decreased. No cysts. Hyperechoic shadowing foci measures up to 5 mm. Bladder: Decompressed and not evaluated. US/Kidney and Bladder IMPRESSION: Bilateral renal atrophy. No hydronephrosis on either side. 5 mm nonobstructing left renal stone. Electronically Signed: Tk Campos, at 17:18 EST Tel , Service support ,
== END ==
PROVIDERS: Family Provider Family Medicine; PCP Family Medicine; Referring Provider Urology; Visit Provider Urology
DX: R10.9 Unspecified abdominal pain (principal)
CPT/HCPCS: 76770

== ENCOUNTER → 2019-02-21 11:08 | Outpatient (CLI) | payer MEDICARE, OTHER, SELFPAY ==
[2019-02-11 13:15] VITALS: BMI 21.0
--- NOTE | 2019-02-21 11:11 | RAD_ITS ---
STUDY: X-RAY - ABDOMEN/PELVIS REASON FOR EXAM: Female, 73 years old. Abdominal pain. TECHNIQUE: Single AP view of the abdomen / pelvis. COMPARISON: 02/12/2019. FINDINGS: Normal visualized lung bases. There is mild nonspecific increase gas pattern throughout some of the small bowel loops, otherwise there is an unremarkable bowel gas pattern. There is no demonstrated free abdominal air. The visualized liver, spleen and kidneys are grossly normal in size and morphology. Normal soft tissue structures. There are diffuse degenerative changes of the visualized lumbar spine. Posterior laminectomy throughout the lower lumbar spine seen. RAD/Abdomen Single View IMPRESSION: Nonspecific gas pattern with mild nonspecific distention of the bowel loops as described above. No signs of bowel obstruction or free air. Electronically Signed: Haritha Lozoya MD at 3:21 EST , Service support ,
== END ==
PROVIDERS: Family Provider Family Medicine; PCP Family Medicine; Referring Provider Family Medicine; Visit Provider Family Medicine
DX: K56.41 Fecal impaction (principal)
CPT/HCPCS: 74018

== ENCOUNTER → 2019-02-25 07:38 | Outpatient (CLI) | payer MEDICARE, OTHER, SELFPAY ==
[2019-02-11 13:15] VITALS: BMI 21.0
--- NOTE | 2019-02-25 07:41 | CT_ITS ---
STUDY: CT CHEST WITHOUT CONTRAST REASON FOR EXAM: Female, 73 years old. Left lower lobe pulmonary nodule RADIATION DOSAGE (If Supplied By Facility): CTDIvol = ( 6.64 ) mGy, DLP = ( 229.00 ) mGycm TECHNIQUE: Transaxial 2.5 mm imaging was performed without the administration of intravenous contrast material. Multiplanar coronal and sagittal images were reformatted. This examination is limited for the evaluation of gastrointestinal, solid organs and vascular structures due to the lack of intravenous and oral contrast. Individualized dose optimization techniques were used for this CT. COMPARISON: CT abdomen and pelvis 02/09/2019 FINDINGS: There is hyperinflation, mild interstitial prominence, compression of the dependent parenchyma, a pleural-based nodular pleural extension in the right middle lobe image 93 series 400.4 x 0.15 cm as seen on previous CT abdomen pelvis exam. There is a small 0.8 cm calcified nodule in the posterior medial right lower lobe image 69 series 4. 2 mm calcified nodule adjacent to the right major fissure in the right middle lobe. The left lower lobe contains the previously described noncalcified 0.9 x 0.6 x 0.6 cm peripheral nodule with adjacent compression of peripheral parenchyma. There is extension to the pleura. There is no pleural effusion. Normal heart and pericardium. There are calcifications of the coronary arteries. Normal mediastinum. Normal hilar regions. Normal unenhanced pulmonary arteries. There is atherosclerotic tortuosity of the aortic arch, left subclavian artery origin and descending thoracic aorta. There are multi-level degenerative changes of the spine, stable kyphosis of the upper thoracic spine, demineralization of osseous structures. Status post right shoulder replacement. Left greater than right renal involution, prior cholecystectomy, stable mild prominence of the left adrenal gland CT/Chest without Contrast IMPRESSION: Hyperinflation, compression along the peripheral lung parenchyma is nonspecific and may be chronic. Left lower lobe nodule as seen on previous CT abdomen pelvis of 0.9 x 0.6 x 0.6 cm. Small calcified nodule posterior medial lung base and right middle lobe adjacent to the major fissure. Other nonacute findings as outlined above. The?Fleischner Society pulmonary nodule recommendations 2017 guidelines Solitary Solitary nodule size: 6-8 mm * low-risk patients: follow-up at 6-12 months, then consider further follow-up at 18-24 months * high-risk patients: initial follow-up CT at 6-12 months and then at 18-24 months if no change Solitary nodule size:?>8 mm * either low or high-risk patients * consider follow-up CT at 3 months, and/or CT-PET, and/or biopsy Electronically Signed: Melanie Horta MD at 4:30 EST , Service support ,
== END ==
PROVIDERS: Family Provider Family Medicine; PCP Family Medicine; Referring Provider Family Medicine; Visit Provider Family Medicine
DX: R91.1 Solitary pulmonary nodule (principal)
CPT/HCPCS: 71250

== ENCOUNTER 2019-04-09 09:57 | Day surgery (SDC) | payer MEDICARE, OTHER, SELFPAY ==
--- NOTE | 2019-03-25 01:49 | HP_ITS ---
I have re-examined the patient. There are no clinical changes since date of exam. Intake Intake Visit Reasons: Bilateral wrists Is patient in pain?: Yes Allergies Penicillins Allergy (Unknown, Verified 03/25/19 09:00) rash Sulfa (Sulfonamide Antibiotics) Allergy (Unknown, Verified 03/25/19 09:00) breathing issues Medications diclofenac sodium 1 % topical gel 2 g TOPICAL ONCE PRN 05/23/18 [History Confirmed 03/25/19] gabapentin 300 mg capsule 300 mg PO TID PRN 05/23/18 [History Confirmed 03/25/19] ezntxoorzvsz-Q7-H4-B12 6 mg-5 mg-50 mg-1 mg tablet 1 tab PO DAILY tab 05/23/18 [History Confirmed 03/25/19] pantoprazole 40 mg tablet,delayed release 40 mg PO DAILY 05/23/18 [History Confirmed 03/25/19] tramadol 50 mg tablet 100 mg PO Q8H PRN tab 05/23/18 [History Confirmed 03/25/19] triamcinolone acetonide 0.1 % topical cream 1 applic TOPICAL BID PRN 05/23/18 [History Confirmed 03/25/19] PFS Social History (Updated 03/25/19 @ 13:49 by Randee Lynn DO) Smoking Status: Never smoker second hand exposure: No alcohol intake: current alcohol intake frequency: a few times a month substance use type: does not use caffeine: Yes what type of physical activity do you participate in: other details: Patient goes to [facility] frequency: 3-4 times per week HPI Bilateral wrists: Surgical H&P: Yes Details: Parts of this documentation were recorded by a scribe, this documentation accurately reflects the service provided and the decisions made by me, Randee Lynn DO 03/25/19 0858. MARIALUISA FUNES is a 73 year old F here today for bilateral wrist followup. Patient notes that she has numbness into her index finger, middle finger and ring finger bilaterally. She states that she has no strength. Patient had an EMG which is here for review. She denies any pain medications. Patient denies any wrist bracing. She used them previously which was not helpful. ROS Musc Reports joint pain, Reports muscle weakness, Reports numbness, Reports radiating pain into limb, Reports stiffness, Reports tingling Neuro Yes numbness, Yes tingling Ortho Exam Right Wrist/Hand Skin/Wound: No Swelling, No Ecchymosis Right Wrist: Yes Tinel's and Thenar Atrophy Motor: EPL: 5, FDP-2: 4, 1st Dorsal Interosseous: 5, APB: 4 Sensation: Radial: I, Ulnar: I, Median: D WRIST: dupuytrians contracture BL Left Wrist/Hand Skin/Wound: No Swelling, No Ecchymosis Left Wrist: Yes Tinel's and Yes Thenar Atrophy Motor: EPL: 5, FDP-2: 4, 1st Dorsal Interosseous: 5, APB: 4 Sensation: Radial: I, Ulnar: I, Median: D No rales rhonchi wheezing, no abdominal pain, no audible bruits Assessment & Plan Problems 1. Carpal tunnel syndrome, bilateral upper limbs G56.03 Plan Personaly reviewed patients EMG she had completed. Patient educated that she has moderate to severe carpal tunnel of her BL wrists. Educated that the tx options are do nothing or steroid injection or night bracing or surgical release. Patient wishes to proceed with surgical release of her right carpal tunnel. Reviewed the pre-operative plans with the patient. Risks and benefits of the procedure were fully explained, including but not limited to infection, neurovascular injury, continued pain, arthritis, stiffness, need for further surgery, re-injury, DVT, PE, general risks of anesthesia, and loss of limb or life. The patient understands all the risks and does wish to proceed with written consent. Follow up 2 weeks post op or sooner if pain, swelling, numbness or associated symptoms, or concerns develop. All questions answered. Patient in agreement of plan. Coding Level of Care Code Off vis,est,level 4 Diagnoses Carpal tunnel syndrome, bilateral upper limbs G56.03 03/25/19 [id number] <Electronically signed by Randee ralph DO> Date _ Randee Lynn DO
[2019-03-25 09:00] VITALS: BMI 21.0
[2019-04-09 10:31] VITALS: BP 136/69; PULSE 58; RESP 16; TEMP 36.7; O2SAT 100; BMI 21.2
[2019-04-09] MEDS: Lactated Ringers 1,000 ML 100 ML IV (10:37)
--- NOTE | 2019-04-09 11:18 | DCINST_ITS ---
Discharge Diet: No Restrictions - Leave dressing intact, follow-up in 10 to 14 days for dressing change and suture removal, call with increased pain numbness tingling or further issues arise Discharge Activity: May Not Drive May shower in (days): 1 Ice area for (Minutes): 20 - Every hour while awake. Weight Bearing Status: Weight bearing as tolerated Keep extremity elevated above heart level: Operative Extremity Call your doctor if your incision/area has: Continuous Slow Oozing, Sudden Increased Bleeding, Increased Pain/ Swelling, Increased Redness, Foul Smelling Discharge Call your doctor if you observe: Fever of 101 or Higher, Coldness, Increased Pain, Numbness or Tingling, Change in Color, Calf discomfort Allergies/Adverse Reactions: Allergies Penicillins Allergy (Unknown, Verified 04/09/19 10:30) rash Sulfa (Sulfonamide Antibiotics) Allergy (Unknown, Verified 04/09/19 10:30) breathing issues Medications to take at Discharge diclofenac sodium 1 % topical gel 2 g TOPICAL ONCE PRN 05/23/18 gabapentin 300 mg capsule 300 mg PO TID PRN 05/23/18 pantoprazole 40 mg tablet,delayed release 40 mg PO DAILY 05/23/18 tramadol 50 mg tablet 100 mg PO Q8H PRN tab 05/23/18 triamcinolone acetonide 0.1 % topical cream 1 applic TOPICAL BID PRN 05/23/18 l-Mefol/A-Cyst/Meb12/Algal Oil [Cerefolin Nac Caplet] 1 ea PO DAILY 04/02/19 Primary Care Physician: Uriah Ireland DO [Primary Care Provider] - Test Results: Test results from this visit will be discussed in further detail at your follow- up appointment, if applicable. Please Follow Up With: Randee Lynn DO - [phone]
--- NOTE | 2019-04-09 11:19 | PCM.OPRPT ---
Report of Operation Date of Procedure: 04/09/19 Pre-Operative Diagnosis: Right carpal tunnel syndrome Post-Operative Diagnosis: Same Surgery/Procedure Performed:: Right carpal tunnel release Type of Anesthesia:: Joni Enciso Anesthesiologist: Cameron Cruz Estimated Blood Loss (mL): min Fluids Replaced: 300cc Description of Procedure: Dragon right carpal tunnel Dragon right carpal tunnel Dragon right carpal tunnel Preoperative note Patient is a 73 year old patient with nerve conduction study confirming carpal tunnel syndrome. Patient failed conservative treatment for her carpal tunnel elected proceed with right carpal tunnel release. Risks benefits and alternatives surgery discussed with patient. Risks including but not limited to blood loss, blood clot, infection, neurovascular injury, failure procedure, loss of life and loss of limb. Patient is aware like proceed with right carpal tunnel release. Operative note Patient seen and examined preoperative holding area. right hand was marked. History and physical and consent reviewed. Patient was brought to the operating room placed supine on the operating table. Sign in, anesthesia, antibiotics were administered. right upper extremity was prepped and draped after [place] block was initiated. All bony prominences well-padded SCDs placed on bilateral lower extremities. We marked out our incisions for our carpal tunnel release at the intersection of Vernon's line in the fourth ray flexed. We extended about a centimeter and a half. Timeout was performed. We then checked ensure that the Joni block was working with pickups which it was not so we performed a local block of 10cc 1% lidocaine. We then used a 15 blade to make a skin incision. We then dissected down tenotomy syllable of the transverse carpal ligament. We then used a new 15 blade cut through the transverse carpal ligament down to the level of the median nerve. We then further released the median nerve the combination of the 15 blade and tenotomies. The nerve was grayish in color and adherent to the transverse carpal ligament volarly. We released the transverse carpal ligament distally to the fat pad and then proximally under standard technique. We then palpated to ensure that we released all of the transverse carpal ligament which we did. We irrigated the incision with copious amounts of sterile saline. All bleeders were coagulated. The incision was closed with interrupted 4-0 nylon stitches. Tourniquet was deflated for total working time of 12 minutes. Patient tolerated procedure well there were no complications. Patient transferred to recovery room in stable condition. Postoperative note Hospital pharmacy has prescription Leave dressing clean dry and intact Follow-up in 2 weeks Call with concerns This note was generated with [employer] dictation software. It may contain incorrect words, spelling, and punctuation that were not noted in checking the note before signing
[2019-04-09 11:58] VITALS: BP 105/56; BP 136/69; PULSE 61; RESP 16; TEMP 36.4; O2SAT 100
[2019-04-09 12:01] VITALS: BP 107/67; BP 136/69; PULSE 61; RESP 16; O2SAT 100
[2019-04-09 12:05] VITALS: BP 115/59; BP 136/69; PULSE 61; RESP 16; O2SAT 100
[2019-04-09 12:07] VITALS: BP 131/61; BP 136/69; PULSE 61; RESP 16; TEMP 36.3; O2SAT 100
[2019-04-09 13:32] VITALS: BP 136/69
== END 2019-04-09 13:41 | disposition home or self-care (01) ==
LOC: SDC 10:00 → AC 10:01
PROVIDERS: PCP Family Medicine; Referring Provider Orthopaedic Surgery; Visit Provider Orthopaedic Surgery
PROC: (CPT 64721; principal; 2019-04-09 11:15)
DX: G56.03 Carpal tunnel syndrome, bilateral upper limbs (principal); I10 Essential (primary) hypertension; K21.9 Gastro-esophageal reflux disease without esophagitis; Z78.0 Asymptomatic menopausal state; Z88.0 Allergy status to penicillin; Z88.2 Allergy status to sulfonamides; Z79.899 Other long term (current) drug therapy; Z86.711 Personal history of pulmonary embolism
CPT/HCPCS: 64721; J7120; A4216

== ENCOUNTER → 2019-05-13 12:16 | Outpatient (CLI) | payer MEDICARE, OTHER, SELFPAY ==
[2019-03-25 09:00] VITALS: BMI 21.0
[2019-04-24 08:24] VITALS: BMI 21.2
[2019-05-13 13:33] LABS: Albumin, Serum 3.4 g/dL (3.2-5.0); BUN 15 mg/dL (7-18); BUN/Creat Ratio 7.5 RATIO (10-20); Calcium,Total 9.8 mg/dL (8.5-10.1); Chloride 106 mmol/L (98-107); Creatinine, Serum 2.01 mg/dL (0.55-1.02); EST Glomerular Filtration Rate 26 mL/min (>60); Est Glom Filt Rate - Afr Amer 31 mL/min (>60); Glucose 122 mg/dL (74-106); Phosphorus 3.3 mg/dL (2.5-4.9); Potassium 3.9 mmol/L (3.5-5.1); Sodium Level 140 mmol/L (136-145)
[2019-06-03 09:45] VITALS: BMI 21.0
== END ==
PROVIDERS: PCP Family Medicine; Referring Provider Internal Medicine Nephrology; Visit Provider Internal Medicine Nephrology
DX: N18.3 Chronic kidney disease, stage 3 (moderate) (principal)
CPT/HCPCS: 36415; 80069

== ENCOUNTER 2019-05-21 11:44 | Day surgery (SDC) | payer MEDICARE, OTHER, SELFPAY ==
[2019-04-24 08:24] VITALS: BMI 21.2
[2019-05-21] VITALS (7 sets, daily range): BP systolic 110–138; BP diastolic 58–97; PULSE 67–78; RESP 16–18; TEMP 36.5–36.7; O2SAT 97–100; BMI 21.0
[2019-05-21] MEDS: Lactated Ringers 1,000 ML 100 ML IV (12:08)
[2019-05-21] MEDS: Cefazolin 2 GM in 0.9% Normal Saline 100 ML IV (16:05)
--- NOTE | 2019-05-21 16:10 | DCINST_ITS ---
Discharge Diet: No Restrictions - Leave dressing on until seen in postop clinic in 10-14 days for suture removal, keep dressing clean, dry, intact; change dressing if gets wet/dirty, call with concerns Discharge Activity: May Not Drive May shower in (days): 1 Ice area for (Minutes): 20 - Every hour while awake. Weight Bearing Status: Weight bearing as tolerated Keep extremity elevated above heart level: Operative Extremity Call your doctor if your incision/area has: Continuous Slow Oozing, Sudden Increased Bleeding, Increased Pain/ Swelling, Increased Redness, Foul Smelling Discharge Call your doctor if you observe: Fever of 101 or Higher, Coldness, Increased Pain, Numbness or Tingling, Change in Color, Calf discomfort Allergies/Adverse Reactions: Allergies Penicillins Allergy (Unknown, Verified 05/21/19 11:59) rash Sulfa (Sulfonamide Antibiotics) Allergy (Unknown, Verified 05/21/19 11:59) breathing issues Medications to take at Discharge diclofenac sodium 1 % topical gel 2 g TOPICAL ONCE PRN 05/23/18 gabapentin 300 mg capsule 300 mg PO TID PRN 05/23/18 pantoprazole 40 mg tablet,delayed release 40 mg PO DAILY 05/23/18 tramadol 50 mg tablet 100 mg PO Q8H PRN tab 05/23/18 triamcinolone acetonide 0.1 % topical cream 1 applic TOPICAL BID PRN 05/23/18 l-Mefol/A-Cyst/Meb12/Algal Oil [Cerefolin Nac Caplet] 1 ea PO DAILY 04/02/19 traMADol [Ultram] 50 mg PO Q6H PRN PRN #30 tab 05/21/19 The following prescriptions were given: traMADol [Ultram] 50 mg PO Q6H PRN PRN #30 tab PRN Reason: Pain Score 4-5/10 Transmission Status: Sent to [facility] Primary Care Physician: Uriah Ireland DO [Primary Care Provider] - Test Results: Test results from this visit will be discussed in further detail at your follow- up appointment, if applicable. Please Follow Up With: Randee Lynn DO - [phone]
[2019-05-21] MEDS: Mupirocin Ointment 22gm Tube 1 APPLIC (16:26)
--- NOTE | 2019-05-21 16:27 | PCM.HP.BLA ---
History and Physical Intake I have re-examined the patient. There are no clinical changes since date of exam. Vital Signs 04/24/19 BMI 21.2 Intake Visit Reasons: right wrist Chief Complaint: hemorrhoidectomy Allergies Penicillins Allergy (Unknown, Verified 04/09/19 10:30) rash Sulfa (Sulfonamide Antibiotics) Allergy (Unknown, Verified 04/09/19 10:30) breathing issues [facility] Social History (Updated 04/24/19 @ 12:37 by ELKIN Mayen) Smoking Status: Never smoker second hand exposure: No alcohol intake: current alcohol intake frequency: a few times a month substance use type: does not use caffeine: Yes what type of physical activity do you participate in: other details: Patient goes to [facility] frequency: 3-4 times per week HPI right wrist: Details: Parts of this documentation were recorded by a scribe, this documentation accurately reflects the service provided and the decisions made by me, ELKIN Mayen 04/24/19 0815. MARIALUISA FUNES is a 73 year old F here today for 2 weeks post op right carpal tunnel release. Denies any pain. Denies numbness, tingling or other associated symptoms. Sutures removed without any concern. No s/sx of infection noted. ROS Musc Reports joint pain, Reports muscle weakness, Reports numbness, Reports radiating pain into limb, Reports stiffness, Reports tingling Neuro Yes numbness, Yes tingling Ortho Exam Right Wrist/Hand Skin/Wound: Yes healing, Yes suture/hung removed, No Swelling, No Ecchymosis Contralateral Normal: Yes Right Wrist: Yes ROM-Extension 0-60, ROM-Flexion 0-80, ROM-Pronation 0-80 and ROM-Supination 0-90 WRIST: Inspection of the wrist shows the incision site to be healing well without any erythema, discharge, warmth, or other signs of infection. She has some minor scabbing noted in the incision site. She has no tenderness on palpation of the incision site. Patient has actually very good almost normal sensation throughout the extremity. She has normal distal radial pulses and capillary refill. Left Wrist/Hand Skin/Wound: No Swelling, No Ecchymosis Right Foot/Ankle Skin/Wound: Yes suture/hung removed No rales rhonchi wheezing, no abdominal pain, no audible bruits Numbness and tingling in the median nerve weakness and F[employer] Assessment & Plan Problems 1. Orthopedic aftercare Z47.89 2. S/P carpal tunnel release Z98.890 Plan Patient presents for 2-week postop follow-up of right carpal tunnel release. Patient states she feels she is doing very good having some minimal to no numbness or tingling in the hand. She states she has not had any pains otherwise. She has been using her hand pretty regularly try to avoid any heavy lifting. At this time patient is very pleased and would like to proceed with the left carpal tunnel release. Questions were answered regarding the procedure and surgical consent was signed in office today. Patient was given antimicrobial scrub to be used the night before the morning of surgery. Patient will be contacted/notified by the surgery department not only for the day of her surgery but preanesthesia testing. Patient can notify us of any other concerns or complaints in the meantime. Patient will follow-up 2 weeks postop after the left carpal tunnel release. This note was generated with [employer] software. It may contain incorrect words, spelling, and punctuation that were not noted in checking the note before signing. Coding Level of Care Code Global Post Op Diagnoses Orthopedic aftercare Z47.89 S/P carpal tunnel release Z98.890
--- NOTE | 2019-05-21 16:28 | PCM.OPRPT ---
Report of Operation Date of Procedure: 05/21/19 Pre-Operative Diagnosis: left carpal tunnel syndrome Post-Operative Diagnosis: same Surgery/Procedure Performed:: left carpal tunnel release Type of Anesthesia:: Joni Enciso Anesthesiologist: Brennan Haley Fluids Replaced: 400cc lr Description of Procedure: Preoperative note Patient is a { 73 } patient with nerve conduction study confirming carpal tunnel syndrome. Patient failed conservative treatment for her carpal tunnel elected proceed with left carpal tunnel release. Risks benefits and alternatives surgery discussed with patient. Risks including but not limited to blood loss, blood clot, infection, neurovascular injury, failure procedure, loss of life and loss of limb. Patient is aware like proceed with left carpal tunnel release. Operative note Patient seen and examined preoperative holding area. Left hand was marked. History and physical and consent reviewed. Patient was brought to the operating room placed supine on the operating table. Sign in, anesthesia, antibiotics were administered. Left upper extremity was prepped and draped after Ringgold block was initiated. All bony prominences well-padded SCDs placed on bilateral lower extremities. We marked out our incisions for our carpal tunnel release at the intersection of Vernon's line in the fourth ray flexed. We extended about a centimeter and a half. Timeout was performed. We then checked ensure that the Ringgold block was working with pickups which it was. We then used a 15 blade to make a skin incision. We then dissected down tenotomy syllable of the transverse carpal ligament. We then used a new 15 blade cut through the transverse carpal ligament down to the level of the median nerve. We then further released the median nerve the combination of the 15 blade and tenotomies. The nerve was grayish in color and adherent to the transverse carpal ligament volarly. We released the transverse carpal ligament distally to the fat pad and then proximally under standard technique. We then palpated to ensure that we released all of the transverse carpal ligament which we did. We irrigated the incision with copious amounts of sterile saline. All bleeders were coagulated. The incision was closed with interrupted 4-0 nylon stitches. Tourniquet was deflated for total working time of 10 minutes. Patient tolerated procedure well there were no complications. Patient transferred to recovery room in stable condition. Postoperative note Hospital pharmacy has prescription Leave dressing clean dry and intact Follow-up in 2 weeks Call with concerns This note was generated with [employer] software. It may contain incorrect words, spelling, and punctuation that were not noted in checking the note before signing.
== END 2019-05-21 17:22 | disposition home or self-care (01) ==
LOC: SDC 11:44 → AC 11:45
PROVIDERS: PCP Family Medicine; Referring Provider Orthopaedic Surgery; Visit Provider Orthopaedic Surgery
PROC: (CPT 64721; principal; 2019-05-21 13:05)
DX: G56.02 Carpal tunnel syndrome, left upper limb (principal); I10 Essential (primary) hypertension; K21.9 Gastro-esophageal reflux disease without esophagitis; Z79.899 Other long term (current) drug therapy; Z88.0 Allergy status to penicillin; Z88.2 Allergy status to sulfonamides; Z78.0 Asymptomatic menopausal state; Z86.711 Personal history of pulmonary embolism
CPT/HCPCS: 01810; 64721; J7120

== ENCOUNTER → 2019-05-29 08:54 | Outpatient (CLI) | payer MEDICARE, OTHER, SELFPAY ==
[2019-04-24 08:24] VITALS: BMI 21.2
[2019-05-21 12:00] VITALS: BMI 21.0
--- NOTE | 2019-05-29 08:56 | US_ITS ---
STUDY: RENAL ULTRASOUND - COMPLETE REASON FOR EXAM: Female, 73 years old. ARF URINARY RETENTION TECHNIQUE: Ultrasound evaluation of the kidneys was performed with real-time and static perry-scale imaging. COMPARISON: None. FINDINGS: RIGHT KIDNEY: with mild renal atrophy. The right kidney measures 7.5 cm x 3.5 cm x 4.1 cm. There is a normal cortex of the right kidney. The renal cortex measures 1.1 cm. There is no right renal mass or cyst. There are no right renal calculi. There is no right hydronephrosis. DISTAL RIGHT URETER: There is non-visualization of the distal right ureter. There is no demonstrated right ureterovesical junction calculus. There is a visualized right ureteral jet. LEFT KIDNEY: with mild renal atrophy. The left kidney measures 7.4 cm x 3.2 cm x 3.3 cm. There is diffuse thinning of the renal cortex. The renal cortex measures 0.9 cm. There is no left renal mass or cyst. Multiple small intrarenal calculi are seen. The largest measures 6 mm x 3 mm x 4 mm. There is no left hydronephrosis. DISTAL LEFT URETER: There is non-visualization of the distal left ureter. There is no demonstrated left ureterovesical junction calculus. There is a visualized left ureteral jet. BLADDER: The distended urinary bladder has a volume of 53 ml. The empty urinary bladder has a volume of 8 ml. There is a normal wall thickness of the distended urinary bladder. There is no demonstrated mass within the urinary bladder. There are no demonstrated bladder calculi. US/Kidney and Bladder IMPRESSION: Bilateral renal atrophy. Small nonobstructive left intrarenal calculi. Electronically Signed: Dax Potter, at 10:46 EDT , Service support ,
== END ==
PROVIDERS: PCP Family Medicine; Referring Provider Internal Medicine Nephrology; Visit Provider Internal Medicine Nephrology
DX: N17.9 Acute kidney failure, unspecified (principal); R33.9 Retention of urine, unspecified
CPT/HCPCS: 51798; 76770

== ENCOUNTER → 2019-07-22 09:30 | Outpatient (CLI) | payer MEDICARE, OTHER, SELFPAY ==
[2019-06-03 09:45] VITALS: BMI 21.0
[2019-07-22 11:07] LABS: Albumin, Serum 3.1 g/dL (3.2-5.0); BUN 20 mg/dL (7-18); BUN/Creat Ratio 11.9 RATIO (10-20); Calcium,Total 9.2 mg/dL (8.5-10.1); Chloride 106 mmol/L (98-107); Creatinine, Serum 1.68 mg/dL (0.55-1.02); EST Glomerular Filtration Rate 32 mL/min (>60); Est Glom Filt Rate - Afr Amer 38 mL/min (>60); Glucose 93 mg/dL (74-106); Phosphorus 3.8 mg/dL (2.5-4.9); Potassium 3.9 mmol/L (3.5-5.1); Sodium Level 142 mmol/L (136-145)
== END ==
PROVIDERS: PCP Family Medicine; Visit Provider Internal Medicine Nephrology
DX: N18.3 Chronic kidney disease, stage 3 (moderate) (principal)
CPT/HCPCS: 36415; 80069

== ENCOUNTER → 2020-01-23 09:35 | Outpatient (CLI) | payer MEDICARE, OTHER, SELFPAY ==
[2019-06-03 09:45] VITALS: BMI 21.0
[2020-01-23 10:26] LABS: Hematocrit 38.4 % (37-47); Hemoglobin 11.5 g/dL (12.0-15.0); Mean Corp Hgb Conc 29.9 g/dL (32-36); Mean Corpuscular Hgb 24.9 pg (27.0-32.0); Mean Corpuscular Volume 83.1 fL (81-99); Mean Platelet Vol. 9.8 fl (6.2-12.0); Platelet Count 554 K/mm3 (150-450); RBC Distribution Width CV 17.3 % (11.6-14.6); RBC Distribution Width SD 52.2 fl (35.1-43.9); Red Blood Count 4.62 M/mm3 (4.2-5.4); White Blood Count 9.2 K/mm3 (4.4-11.0)
[2020-01-23 11:02] LABS: Albumin, Serum 3.3 g/dL (3.2-5.0); BUN 16 mg/dL (7-18); BUN/Creat Ratio 8.7 RATIO (10-20); Calcium,Total 9.6 mg/dL (8.5-10.1); Chloride 109 mmol/L (98-107); Creatinine, Serum 1.84 mg/dL (0.55-1.02); EST Glomerular Filtration Rate 28 mL/min (>60); Est Glom Filt Rate - Afr Amer 34 mL/min (>60); Glucose 104 mg/dL (74-106); PTHIN 43.3 pg/mL (18.4-80.1); Potassium 3.9 mmol/L (3.5-5.1); Sodium Level 142 mmol/L (136-145)
== END ==
PROVIDERS: PCP Family Medicine; Referring Provider Internal Medicine Nephrology; Visit Provider Internal Medicine Nephrology
DX: N18.30 Chronic kidney disease, stage 3 unspecified (principal)
CPT/HCPCS: 36415; 80069; 83970; 85027

== ENCOUNTER → 2020-05-14 09:52 | Outpatient (CLI) | payer MEDICARE, OTHER, SELFPAY ==
[2019-06-03 09:45] VITALS: BMI 21.0
--- NOTE | 2020-05-14 09:55 | RAD_ITS ---
STUDY: X-RAY - RIGHT HUMERUS REASON FOR EXAM: Right arm pain. TECHNIQUE: 2 view(s) of the humerus. COMPARISON: None. FINDINGS: There is a reverse shoulder arthroplasty without evidence of complication. Otherwise, unremarkable visualized humerus. There is no demonstrated fracture or osseous destructive process. There is no demonstrated soft tissue abnormality. RAD/Humerus min 2 Views IMPRESSION: Uncomplicated reverse shoulder arthroplasty. Electronically Signed: Paxton Guy MD at 12:48 EST Tel , Service support ,
== END ==
PROVIDERS: PCP Family Medicine; Referring Provider Family Medicine; Visit Provider Family Medicine
DX: M79.601 Pain in right arm (principal)
CPT/HCPCS: 73060

== ENCOUNTER → 2020-08-04 10:06 | Outpatient (CLI) | payer MEDICARE, OTHER, SELFPAY ==
[2019-06-03 09:45] VITALS: BMI 21.0
[2020-08-04 10:34] LABS: Hematocrit 38.9 % (37-47); Hemoglobin 11.9 g/dL (12.0-15.0); Mean Corp Hgb Conc 30.6 g/dL (32-36); Mean Corpuscular Hgb 25.6 pg (27.0-32.0); Mean Corpuscular Volume 83.8 fL (81-99); Mean Platelet Vol. 9.1 fl (6.2-12.0); Platelet Count 532 K/mm3 (150-450); RBC Distribution Width CV 17.9 % (11.6-14.6); RBC Distribution Width SD 54.4 fl (35.1-43.9); Red Blood Count 4.64 M/mm3 (4.2-5.4); White Blood Count 8.3 K/mm3 (4.4-11.0)
[2020-08-04 10:54] LABS: BUN 16 mg/dL (7-18); BUN/Creat Ratio 8.6 RATIO (10-20); Calcium,Total 9.4 mg/dL (8.5-10.1); Chloride 104 mmol/L (98-107); Creatinine, Serum 1.85 mg/dL (0.55-1.02); EST Glomerular Filtration Rate 28 mL/min (>60); Est Glom Filt Rate - Afr Amer 34 mL/min (>60); Glucose 85 mg/dL (74-106); Phosphorus 3.4 mg/dL (2.5-4.9); Potassium 4.3 mmol/L (3.5-5.1); Sodium Level 140 mmol/L (136-145)
== END ==
PROVIDERS: PCP Family Medicine; Referring Provider Internal Medicine Nephrology; Visit Provider Internal Medicine Nephrology
DX: N18.32 Chronic kidney disease, stage 3b (principal)
CPT/HCPCS: 36415; 80069; 85027

== ENCOUNTER → 2020-12-23 13:18 | Outpatient (CLI) | payer MEDICARE, OTHER, SELFPAY ==
--- NOTE | 2020-12-23 13:40 | BD_ITS ---
STUDY: DUAL ENERGY X-RAY ABSORPTIOMETRY / DXA REASON FOR EXAM: Female, 75 years old. 627.8Menopausal postmenopausalBONE DENSITY REASON FOR EXAM TECHNIQUE: Bone Mineral Density (BMD) measurements of lumbar spine and bilateral hips were obtained. COMPARISON: Comparison is made with prior study dated 12/19/2016. FINDINGS: Lumbar Spine (L1-L4): g/cm2 (1.096) / T-score (0.3) / Z-score (2.9) Findings are suggestive of normal bone density with a low fracture risk. Left Femur Total: g/cm2 (0.887) / T-score (-0.4) / Z-score (1.5) Left Femoral Neck: g/cm2 (0.719) / T-score (-1.2) / Z-score (1.0) Right Femur Total: g/cm2 (0.852) / T-score (-0.7) / Z-score (1.2) Right Femoral Neck: g/cm2 (0.741) / T-score (-1.0) / Z-score (1.2) The T-Scores on the most recent prior examination were: Lumbar Spine (L1-L4): There has been worsening of bone density since the previous examination. Left Femur Total: which represents a worsening of 11.6%. Right Femur Total: which represents a worsening of 13.2%. BD/Dexa Bone Density Study IMPRESSION: The patient is considered osteopenic as outlined below according to World Jose Organization (WHO) criteria with a low fracture risk. There has been worsening of bone density since the previous examination. Reference Information: The T-score is the number of standard deviations above or below the standard which is normal for young adults at their peak bone mineral density. The World Health Organization (WHO) interprets the T-scores as follows: Above -1 Normal bone density Between -1 and -2.5 Osteopenia Equal to / or below -2.5 Osteoporosis As a practical clinical guideline, osteopenia may be graded as follows: Mild -1 through -1.5 Moderate -1.6 through -2.0 Severe -2.1 through -2.4 The Z-score is the number of standard deviations above or below age-matched controls. A Z-score of less than -1.5 would be considered abnormal. References: 1. NIH Osteoporosis and Related Bone Diseases www osteo.org 2. International Society for Clinical Densitometry www iscd.org 3. National Osteoporosis Foundation www nof.org Electronically Signed: Dax Potter MD at 9:30 EDT , Service support ,
--- NOTE | 2020-12-23 13:41 | BI_ITS ---
MAMMOGRAPHY - BILATERAL SCREENING REASON FOR EXAM: Female, 75 years old. Routine annual screening examination. PERTINENT HISTORY: Non-contributory. TECHNIQUE: Digital bilateral breast jo ann (3D mammographic acquisition) in the CC and MLO projections. 2-D mediolateral oblique (MLO) and craniocaudad (CC) views of both breasts were obtained. CAD: Full Field Digital Mammography with Computer Added Detection was performed. COMPARISON: Comparison is made with prior study 12/19/2016 and 06/11/2014. FINDINGS: Breast Composition: The breasts are extremely dense, which lowers the sensitivity of mammography. There are no dominant masses or suspicious calcifications. Stable bilateral secretory calcifications. No other significant abnormalities are identified. There has been no significant change since the prior study. BI/SCRN MAMM (CAD)W/JO ANN BILAT IMPRESSION: Stable bilateral screening mammogram. Yearly follow-up mammogram recommended. (A) ASSESSMENT CATEGORY: BIRADS Category 2: Benign. A letter regarding these results will be sent to the patient by the facility within 30 days. Approximately 10% of breast cancers are not detected by mammography. A normal mammogram should not delay biopsy of a clinically suspicious abnormality. [id number] Electronically Signed: Dax Potter MD at 14:30 EDT , Service support ,
== END ==
PROVIDERS: PCP Family Medicine; Referring Provider Family Medicine; Visit Provider Family Medicine
DX: Z12.31 Encounter for screening mammogram for malignant neoplasm of breast (principal); N95.9 Unspecified menopausal and perimenopausal disorder; M85.80 Other specified disorders of bone density and structure, unspecified site; Z78.0 Asymptomatic menopausal state
CPT/HCPCS: 77063; 77067; 77080

== ENCOUNTER → 2021-01-24 | Outpatient (CLI) | payer MEDICARE, OTHER, SELFPAY ==
[2021-01-24 12:40] LABS: Mucous, Urine 0 SEEN /hpf (<or=2+); Red Blood Cells-Urine 0 SEEN /hpf (0-5); Squamous Epithelial Cells - UA 0 SEEN /hpf (5-10)
[2021-01-24 12:55] LABS: Color, Urine Yellow (Yellow); Glucose, Dipstick Normal (Normal); Ketone-Dipstick Negative (Negative); Leukocyte Esterase-Dipstick 500 /ul (Negative); Nitrite-Dipstick Positive (Negative); Occult Blood-Urine 50 /ul (Negative); Protein-Dipstick 30 mg/dl (Negative); Urine Bilirubin Dipstick Negative (Negative); Urine Clarity Turbid (Clear); Urine Urobilinogen Normal (Normal)
[2021-01-24 13:06] LABS: Bacteria 1+ /hpf (None Seen); White Blood Cells >100 SEEN /hpf (0-5)
== END | disposition home or self-care (01) ==
LOC: LABSPEC 12:13
PROVIDERS: PCP Family Medicine; Visit Provider Physician Assistant
DX: N39.0 Urinary tract infection, site not specified (principal)
CPT/HCPCS: 81001; 87077; 87086; 87088; 87186

== ENCOUNTER → 2021-02-14 09:44 | Outpatient (CLI) | payer MEDICARE, OTHER, SELFPAY ==
[2019-06-03 09:45] VITALS: BMI 21.0
[2021-02-14 10:42] LABS: Hemoglobin 12.9 g/dL (12.0-15.0); Mean Corp Hgb Conc 32.3 g/dL (32-36); Mean Corpuscular Hgb 28.1 pg (27.0-32.0); Mean Corpuscular Volume 87.1 fL (81-99); Mean Platelet Vol. 9.6 fl (6.2-12.0); Platelet Count 497 K/mm3 (150-450); RBC Distribution Width CV 17.3 % (11.6-14.6); Red Blood Count 4.59 M/mm3 (4.2-5.4); White Blood Count 7.7 K/mm3 (4.4-11.0)
[2021-02-14 11:15] LABS: BUN 19 mg/dL (7-18); BUN/Creat Ratio 11.4 RATIO (10-20); Calcium,Total 9.8 mg/dL (8.5-10.1); Chloride 106 mmol/L (98-107); Creatinine, Serum 1.66 mg/dL (0.55-1.02); EST Glomerular Filtration Rate 32 mL/min (>60); Est Glom Filt Rate - Afr Amer 39 mL/min (>60); Glucose 88 mg/dL (74-106); Phosphorus 3.4 mg/dL (2.5-4.9); Potassium 3.8 mmol/L (3.5-5.1); Sodium Level 141 mmol/L (136-145)
== END ==
PROVIDERS: PCP Family Medicine; Referring Provider Internal Medicine Nephrology; Visit Provider Internal Medicine Nephrology
DX: N18.32 Chronic kidney disease, stage 3b (principal)
CPT/HCPCS: 36415; 80069; 85027

== ENCOUNTER → 2021-10-04 | Outpatient (CLI) | payer MEDICARE, OTHER, SELFPAY ==
[2021-10-04 09:52] LABS: Albumin, Serum 3.5 g/dL (3.2-5.0); BUN 18 mg/dL (7-18); BUN/Creat Ratio 9.9 RATIO (10-20); Calcium,Total 9.4 mg/dL (8.5-10.1); Chloride 104 mmol/L (98-107); Creatinine, Serum 1.81 mg/dL (0.55-1.02); EST Glomerular Filtration Rate 29 mL/min (>60); Est Glom Filt Rate - Afr Amer 35 mL/min (>60); Glucose 97 mg/dL (74-106); Phosphorus 2.9 mg/dL (2.5-4.9); Potassium 3.6 mmol/L (3.5-5.1); Sodium Level 138 mmol/L (136-145)
[2021-10-04 09:56] LABS: PTHIN 49.2 pg/mL (18.4-80.1)
== END | disposition home or self-care (01) ==
PROVIDERS: PCP Family Medicine; Referring Provider Internal Medicine Nephrology; Visit Provider Internal Medicine Nephrology
DX: N18.32 Chronic kidney disease, stage 3b (principal)
CPT/HCPCS: 36415; 80069; 83970

== ENCOUNTER → 2022-04-27 | Outpatient (CLI) | payer MEDICARE, SELFPAY ==
[2022-04-27 11:34] LABS: Albumin, Serum 3.2 g/dL (3.2-5.0); BUN 25 mg/dL (7-18); Chloride 106 mmol/L (98-107); Creatinine, Serum 2.09 mg/dL (0.55-1.02); EST Glomerular Filtration Rate 24 mL/min (>60); Est Glom Filt Rate - Afr Amer 29 mL/min (>60); Glucose 122 mg/dL (74-106); Phosphorus 3.8 mg/dL (2.5-4.9); Potassium 4.3 mmol/L (3.5-5.1); Sodium Level 143 mmol/L (136-145)
== END | disposition home or self-care (01) ==
PROVIDERS: PCP Family Medicine; Referring Provider Internal Medicine Nephrology; Visit Provider Internal Medicine Nephrology
DX: N18.32 Chronic kidney disease, stage 3b (principal)
CPT/HCPCS: 36415; 80069

== ENCOUNTER → 2022-05-19 | Outpatient (CLI) | payer MEDICARE, SELFPAY ==
--- NOTE | 2022-05-19 09:10 | RAD_ITS ---
STUDY: X-RAY - ABDOMEN/PELVIS REASON FOR EXAM: Female, 76 years old. Left flank pain. TECHNIQUE: Single AP view of the abdomen / pelvis. COMPARISON: None. FINDINGS: Normal visualized lung bases. Normal bowel gas pattern with air seen to the rectosigmoid. Moderate amount of feces in the colon. There is no demonstrated free abdominal air. The visualized liver, spleen and kidneys are grossly normal in size and morphology. Cholecystectomy clips. Postsurgical changes of the lower lumbosacral spine with dextroscoliosis. Mild arthrosis of both hips. RAD/Abdomen Single View IMPRESSION: No acute abnormality of the lower chest, abdomen or pelvis. Electronically Signed: Scooby Lindsey, at 15:38 EST ,
[2022-05-19 12:36] LABS: Absolute Neutrophil Count 6.5 X10^3/uL (2.0-7.7); Basophil# 0.04 X10^3/uL; Basophil% 0.4 % (0-1); Eosinophil# 0.12 X10^3/uL; Eosinophils% 1.2 % (0-5); Hematocrit 42.9 % (37-47); Hemoglobin 13.8 g/dL (12.0-15.0); Mean Corp Hgb Conc 32.2 g/dL (32-36); Mean Corpuscular Hgb 32.4 pg (27.0-32.0); Mean Corpuscular Volume 100.7 fL (81-99); Monocyte# 0.94 X10^3/uL; Monocyte% 9.4 % (0-10); NRBC Flagged by Analyzer 0 % (0-5); Neutrophil # 6.52 X10^3/uL (2.7-7.7); Neutrophil % 65.3 % (47-70); Platelet Count 417 K/mm3 (150-450); RBC Distribution Width CV 15.7 % (11.6-14.6); RBC Distribution Width SD 57.1 fl (35.1-43.9); Red Blood Count 4.26 M/mm3 (4.2-5.4)
[2022-05-19 12:43] LABS: Color, Urine Yellow (Yellow); Glucose, Dipstick Normal (Normal); Ketone-Dipstick Negative (Negative); Leukocyte Esterase-Dipstick 500 /ul (Negative); Nitrite-Dipstick Negative (Negative); Occult Blood-Urine 25 /ul (Negative); Protein-Dipstick 15 mg/dl (Negative); Urine Bilirubin Dipstick Negative (Negative); Urine Clarity Sl. Cloudy (Clear); Urine Urobilinogen Normal (Normal)
== END | disposition home or self-care (01) ==
PROVIDERS: PCP Family Medicine; Referring Provider Family Medicine; Visit Provider Family Medicine
DX: R10.9 Unspecified abdominal pain (principal)
CPT/HCPCS: 36415; 74018; 81002; 85025; 87086

== ENCOUNTER → 2022-06-08 | Outpatient (CLI) | payer MEDICARE, SELFPAY | END | disposition home or self-care (01) | LOC: LABSPEC 10:17 | PROVIDERS: PCP Family Medicine; Referring Provider Family Medicine; Visit Provider Family Medicine | DX: R10.9 Unspecified abdominal pain (principal) | CPT/HCPCS: 87077; 87086; 87088; 87186 ==

== ENCOUNTER → 2022-06-19 | Outpatient (CLI) | payer MEDICARE, SELFPAY ==
[2022-06-19 11:48] LABS: Albumin, Serum 3.2 g/dL (3.2-5.0); BUN 23 mg/dL (7-18); BUN/Creat Ratio 12.5 RATIO (10-20); Calcium,Total 9.9 mg/dL (8.5-10.1); Chloride 107 mmol/L (98-107); Creatinine, Serum 1.84 mg/dL (0.55-1.02); EST Glomerular Filtration Rate 28 mL/min (>60); Est Glom Filt Rate - Afr Amer 34 mL/min (>60); Glucose 107 mg/dL (74-106); Phosphorus 3.8 mg/dL (2.5-4.9); Potassium 3.6 mmol/L (3.5-5.1); Sodium Level 138 mmol/L (136-145)
== END | disposition home or self-care (01) ==
PROVIDERS: PCP Family Medicine; Referring Provider Internal Medicine Nephrology; Visit Provider Internal Medicine Nephrology
DX: N18.32 Chronic kidney disease, stage 3b (principal)
CPT/HCPCS: 36415; 80069

== ENCOUNTER → 2023-06-01 | Outpatient (CLI) | payer MEDICARE, SELFPAY ==
[2023-06-01 11:21] LABS: Albumin, Serum 3.4 g/dL (3.2-5.0); BUN 24 mg/dL (7-18); BUN/Creat Ratio 12.2 RATIO (10-20); Calcium,Total 9.8 mg/dL (8.5-10.1); Chloride 106 mmol/L (98-107); Creatinine, Serum 1.97 mg/dL (0.55-1.02); EST Glomerular Filtration Rate 26 mL/min (>60); Est Glom Filt Rate - Afr Amer 31 mL/min (>60); Glucose 94 mg/dL (74-106); Potassium 3.2 mmol/L (3.5-5.1); Sodium Level 141 mmol/L (136-145)
== END | disposition home or self-care (01) ==
LOC: LAB 10:07
PROVIDERS: PCP Family Medicine; Referring Provider Internal Medicine Nephrology; Visit Provider Internal Medicine Nephrology
DX: N18.32 Chronic kidney disease, stage 3b (principal)
CPT/HCPCS: 36415; 80069

== ENCOUNTER → 2023-08-09 | Outpatient (CLI) | payer MEDICARE, SELFPAY ==
[2023-08-09 12:57] LABS: Color, Urine Yellow (Yellow); Glucose, Dipstick Normal (Normal); Ketone-Dipstick Negative (Negative); Leukocyte Esterase-Dipstick 25 /ul (Negative); Nitrite-Dipstick Negative (Negative); Occult Blood-Urine Negative /ul (Negative); Protein-Dipstick Negative (Negative); Urine Bilirubin Dipstick Negative (Negative); Urine Clarity Clear (Clear); Urine Urobilinogen Normal (Normal)
[2023-08-09 13:03] LABS: Absolute Lymphocyte Count 1.59 X10^3/uL (0.83-4.51); Absolute Neutrophil Count 4.6 X10^3/uL (2.0-7.7); Basophil# 0.06 X10^3/uL; Basophil% 0.7 % (0-1); Eosinophil# 0.51 X10^3/uL; Eosinophils% 6.3 % (0-5); Hematocrit 42.3 % (37-47); Hemoglobin 13.4 g/dL (12.0-15.0); Lymphocyte # 1.59 X10^3/ul (0.83-4.51); Lymphocyte % 19.6 % (19-41); Mean Corp Hgb Conc 31.7 g/dL (32-36); Mean Corpuscular Volume 97.9 fL (81-99); Mean Platelet Vol. 9.4 fl (6.2-12.0); Monocyte# 1.27 X10^3/uL; Monocyte% 15.6 % (0-10); NRBC Flagged by Analyzer 0 % (0-5); Neutrophil # 4.57 X10^3/uL (2.7-7.7); Neutrophil % 56.3 % (47-70); Platelet Count 384 K/mm3 (150-450); RBC Distribution Width CV 14.1 % (11.6-14.6); RBC Distribution Width SD 50.7 fl (35.1-43.9); Red Blood Count 4.32 M/mm3 (4.2-5.4); White Blood Count 8.1 K/mm3 (4.4-11.0)
[2023-08-09 13:05] LABS: Erythrocyte Sedimentation Rate 9 mm/hr (0-30)
[2023-08-09 16:14] LABS: ALB/GLOB Ratio 0.9 RATIO (0.9-2.4); AST(SGOT) 27 U/L (15-37); Alanine Aminotransfer ALT/SGPT 21 U/L (13-56); Albumin, Serum 3.3 g/dL (3.2-5.0); Alkaline Phosphatase 62 U/L (45-117); Anion Gap 8 (5-15); BUN 28 mg/dL (7-18); BUN/Creat Ratio 11.9 RATIO (10-20); Calcium,Total 11.6 mg/dL (8.5-10.1); Chloride 105 mmol/L (98-107); Creatinine, Serum 2.36 mg/dL (0.55-1.02); EST Glomerular Filtration Rate 21 mL/min (>60); Est Glom Filt Rate - Afr Amer 26 mL/min (>60); Globulin 3.7 g/dL (2.2-4.2); Glucose 79 mg/dL (74-106); Sodium Level 141 mmol/L (136-145)
== END | disposition home or self-care (01) ==
LOC: BFHLAB 10:22
PROVIDERS: PCP Family Medicine; Referring Provider Family Medicine; Visit Provider Family Medicine
DX: R53.83 Other fatigue (principal); R53.1 Weakness; E87.6 Hypokalemia; R51.9 Headache, unspecified
CPT/HCPCS: 36415; 80053; 81002; 85025; 85652; 87086

== ENCOUNTER → 2023-08-20 | Outpatient (CLI) | payer MEDICARE, SELFPAY ==
[2023-08-20 10:37] LABS: Ionized Calcium 5.63 mg/dL (4.36-5.20)
[2023-08-20 10:53] LABS: PTHIN 16.4 pg/mL (18.4-80.1)
[2023-08-20 10:58] LABS: Vitamin D,25 Hydroxy 47.9 ng/mL
[2023-08-20 18:16] LABS: Ionized Calcium Order ORDER TUBE
[2023-08-22 12:09] LABS: Vitamin D 1,25-Dihydroxy 51.3 pg/mL (24.8-81.5)
== END | disposition home or self-care (01) ==
PROVIDERS: PCP Family Medicine; Referring Provider Family Medicine; Visit Provider Family Medicine
DX: E83.52 Hypercalcemia (principal)
CPT/HCPCS: 36415; 82306; 82330; 82652; 83970

== ENCOUNTER → 2023-08-28 | Outpatient (CLI) | payer MEDICARE, SELFPAY ==
--- NOTE | 2023-08-28 12:57 | CDU_ITS ---
Reason For Study: RT CAROTID BRUIT Rt. Velocities/BP Lt. Velocities/BP Prox CCA 86.3/16.3 cm/sec. Prox CCA 139.9/17.5 cm/sec. Mid CCA 81.5/14.5 cm/sec. Mid CCA 92.4/15.7 cm/sec. Dist CCA 76.8/20.1 cm/sec. Dist CCA 105.2/19.4 cm/sec. Prox ICA 63.8/15.4 cm/sec. Prox ICA 86.7/13.0 cm/sec. Mid ICA 137.5/33.4 cm/sec. Mid ICA 99.0/20.4 cm/sec. Dist ICA 139.4/29.8 cm/sec. Dist ICA 99.7/24.8 cm/sec. Rt. ICA/CCA = 139.4/81.5=1.7. Lt. ICA/CCA = 99.7/92.4=1.1. Prox ECA 78.7/4.1 cm/sec. Prox ECA 105.2/13.9 cm/sec. Rt. Vert. 53.5/11.0 cm/sec. Lt. Vert. 60.9/16.7 cm/sec. Right Extracranial There is intimal thickening but no significant atherosclerotic plaque noted in the right common carotid artery. There is heterogeneous, irregular atherosclerotic plaque noted in the right internal carotid artery. The tortuous nature of the right internal carotid artery may result in flow velocities overestimating the degree of stenosis. There is heterogeneous, irregular atherosclerotic plaque noted in the right external carotid artery. Antegrade flow is noted in the right vertebral artery. Left Extracranial There is homogeneous, smooth atherosclerotic plaque noted in the left common carotid artery. There is homogeneous, smooth atherosclerotic plaque noted in the left internal carotid artery. The left internal carotid artery is very tortuous. There is homogeneous, smooth atherosclerotic plaque noted in the left external carotid artery. Antegrade flow is noted in the left vertebral artery. VL/Carotid Duplex Ultrasound Interpretation Summary Moderate (50-69%) stenosis right extracranial internal carotid. Mild (<50%) stenosis left extracranial internal carotid. Patent and antegrade vertebrals bilaterally. Ordering Physician: Uriah Ireland Referring Physician: Uriah Ireland Performed By: Karma Ge, TYRONE, RVT
== END | disposition home or self-care (01) ==
PROVIDERS: PCP Family Medicine; Referring Provider Family Medicine; Visit Provider Family Medicine
DX: I65.23 Occlusion and stenosis of bilateral carotid arteries (principal)
CPT/HCPCS: 93880

== ENCOUNTER → 2023-09-06 | Outpatient (CLI) | payer MEDICARE, SELFPAY ==
[2023-09-06 11:22] LABS: Cholesterol 226 mg/dL (200); High Density Lipoprotein 78 mg/dL; Triglycerides 138 mg/dL; Very Low Density Lipoprotein 28 mg/dL (5-40)
== END | disposition home or self-care (01) ==
LOC: LAB 09:47
PROVIDERS: PCP Family Medicine; Referring Provider Family Medicine; Visit Provider Family Medicine
DX: I65.23 Occlusion and stenosis of bilateral carotid arteries (principal)
CPT/HCPCS: 36415; 80061

== ENCOUNTER → 2023-11-23 | Outpatient (CLI) | payer MEDICARE, SELFPAY ==
[2023-11-23 13:01] LABS: AST(SGOT) 32 U/L (15-37); Alanine Aminotransfer ALT/SGPT 28 U/L (13-56); Albumin, Serum 3.4 g/dL (3.2-5.0); Alkaline Phosphatase 53 U/L (45-117); Bilirubin, Direct 0.16 mg/dL (0.00-0.30); Cholesterol 154 mg/dL (200); Globulin 3.6 g/dL (2.2-4.2); High Density Lipoprotein 113 mg/dL; Triglycerides 69 mg/dL; Very Low Density Lipoprotein 14 mg/dL (5-40)
== END | disposition home or self-care (01) ==
LOC: BFHLAB 10:44
PROVIDERS: PCP Family Medicine; Referring Provider Family Medicine; Visit Provider Family Medicine
DX: N18.4 Chronic kidney disease, stage 4 (severe) (principal); Z51.81 Encounter for therapeutic drug level monitoring
CPT/HCPCS: 36415; 80061; 80076

== ENCOUNTER → 2024-04-02 | Outpatient (CLI) | payer OTHER, SELFPAY | END | disposition home or self-care (01) | LOC: LABSPEC 12:22 | PROVIDERS: PCP Family Medicine; Referring Provider Physician Assistant; Visit Provider Physician Assistant | DX: R35.0 Frequency of micturition (principal) | CPT/HCPCS: 87077; 87086; 87088; 87186 ==

== ENCOUNTER → 2024-05-09 | Outpatient (CLI) | payer OTHER, SELFPAY ==
[2024-05-09 11:13] LABS: PTHIN 25 pg/mL (11-61)
[2024-05-09 11:44] LABS: Phosphorus 3.2 mg/dL (2.7-4.5); Vitamin D,25 Hydroxy 40.1 ng/mL (30-100)
[2024-05-09 12:08] LABS: Albumin, Serum 4.1 g/dL (3.4-4.8); BUN 26 mg/dL (4-19); BUN/Creat Ratio 13.5 RATIO (10-20); Carbon Dioxide 22.3 mmol/L (22.0-29.0); Chloride 105 mmol/L (96-108); Creatinine, Serum 1.89 mg/dL (0.70-1.20); EST Glomerular Filtration Rate 27 (>60); Glucose 104 mg/dL (70-99); Potassium 4.8 mmol/L (3.3-5.1); Sodium Level 141 mmol/L (133-145)
== END | disposition home or self-care (01) ==
LOC: LAB 10:13
PROVIDERS: PCP Family Medicine; Referring Provider Internal Medicine Nephrology; Visit Provider Internal Medicine Nephrology
DX: N18.4 Chronic kidney disease, stage 4 (severe) (principal)
CPT/HCPCS: 36415; 80069; 82306; 83970

== ENCOUNTER → 2024-05-13 | Outpatient (CLI) | payer OTHER, SELFPAY ==
[2024-05-13 12:10] LABS: Ionized Calcium Order ORDER TUBE
== END | disposition home or self-care (01) ==
LOC: POLAB3 11:09
PROVIDERS: PCP Family Medicine; Visit Provider Internal Medicine Nephrology
DX: E83.52 Hypercalcemia (principal)
CPT/HCPCS: 36415; 82330; 82652

== ENCOUNTER → 2024-07-03 | Outpatient (CLI) | payer OTHER, SELFPAY ==
[2024-07-03 11:01] LABS: Anion Gap 12 (5-15); BUN 22 mg/dL (4-19); BUN/Creat Ratio 12.4 RATIO (10-20); Calcium,Total 9.5 mg/dL (7.6-11.0); Carbon Dioxide 23.1 mmol/L (21.0-32.0); Chloride 105 mmol/L (98-108); Creatinine, Serum 1.76 mg/dL (0.70-1.20); EST Glomerular Filtration Rate 29 (>60); Glucose 91 mg/dL (70-99); Potassium 4.3 mmol/L (3.3-5.1); Sodium Level 140 mmol/L (133-145)
== END | disposition home or self-care (01) ==
LOC: LAB 09:55
PROVIDERS: PCP Family Medicine; Referring Provider Internal Medicine Nephrology; Visit Provider Internal Medicine Nephrology
DX: E83.52 Hypercalcemia (principal)
CPT/HCPCS: 36415; 80048

== ENCOUNTER → 2024-09-30 | Outpatient (CLI) | payer OTHER, SELFPAY ==
[2024-09-30 11:06] LABS: PTHIN 46 pg/mL (11-61)
[2024-09-30 11:27] LABS: Albumin, Serum 4.1 g/dL (3.4-4.8); Anion Gap 15 (5-15); BUN 24 mg/dL (4-19); BUN/Creat Ratio 10.8 RATIO (10-20); Calcium,Total 9.9 mg/dL (7.6-11.0); Carbon Dioxide 22.3 mmol/L (21.0-32.0); Chloride 106 mmol/L (98-108); Glucose 129 mg/dL (70-99); Potassium 4.2 mmol/L (3.3-5.1)
--- OUTSIDE RECORDS SUMMARY | 2024-09-30 19:34 | XMS RPT_ITS | CCD ---
Author Organization [facility] Care Team Providers Care Scientific Writer Name Role Phone Ericka Donahue N Unavailable Fatuma Donahueica N Unavailable DonahueMaurisioEricka N Unavailable FRANC LOPEZ Attending Unavailable LILY THAYER Unavailable FRANC LOPEZ Admitting Unavailable FRANC LOPEZ Attending Unavailable Dr. Uriah Ireland Primary Care Provider Dr. Uriah Ireland Referring Provider ELKIN Trejo Attending Provider Dr. Uriah Ireland DO Primary Care Provider Dr. Uriah Ireland DO Referring Provider Franc Jain Attending Provider Franc Jain Referring Provider [phone] Dr. Yudith Vega DO Attending Provider [phone] Dr. Yudith Vega DO Referring Provider Yudith Vega Attending Unavailable Uriah Ireland Primary Care Unavailable Yudith Vega Attending Unavailable Yudith Vega Referring Unavailable Uriah Ireland Primary Care Unavailable Uriah Ireland Primary Care Unavailable Yudith Vega Attending Unavailable Uriah Ireland Primary Care Unavailable Uriah Ireland Attending Unavailable Uriah Ireland Referring Unavailable Franc Jain Attending Unavailable Uriah Ireland Primary Care Unavailable Uriah Ireland Referring Unavailable Yudith Vega Attending Unavailable Yudith Vega Referring Unavailable Uriah Ireland Primary Care Unavailable Franc Jain Attending Unavailable Franc Jain Referring Unavailable Uriah Ireland Primary Care Unavailable Allergies Allergy Classification Reported Allergen(s) Allergy Type Date of Onset Reaction(s) Facility (9 sources) Grass pollen; Translations: [grass pollen] Allergy to substance 1 unknown [facility] (8 sources) Mold Extract Drug Allergy 1 unknown [facility] (9 sources) Penicillins; Translations: [Penicillins] Allergy to substance 1 rash [facility] (9 sources) Sulfonamides (Antibiotic); Translations: [Sulfa (Sulfonamide Antibiotics)] Allergy to substance 1 breathing issues [facility] (9 sources) Tree and shrub pollen; Translations: [tree and shrub pollen] Allergy to substance 1 unknown [facility] (1 source) Mold Extract Drug Allergy 5 [facility] Repository Medications Current Medications Medication Drug Class(es) Dates Sig (Normalized) Sig (Original) Ckyrudfqocxs-T6-R2-B 12 (Cerefolin) 6-5-50-1 mg tablet (3 sources) Start: 07-24-2022 Swmwqbextnyt-C2-Z6- B12 (Cerefolin) 6-5-50-1 mg tablet Active 1 {tbl} PO DAILY July 24, 2022 12:00am Start: 07-24-2022 take 1 tablet by robyn once daily Frnwfzjdgkfx-V6-O4-B12 (Cerefolin) 6-5-50-1 mg tablet Active 1 TABLET PO DAILY July 24, 2022 12:00am microencapsulated potassium chloride 20 meq extended release oral tablet (5 sources) Start: 04-02-2024 take 1 tablet by mouth once daily Potassium Chloride 20 mEq tablet,ER particles/crystals Active 20 meq PO daily April 02, 2024 1:00am Start: 08-06-2015 take 4 tablets by mo ut once daily, then take 20 tablets by mouth KLOR-CON M20 20 MEQ CR-TABS 4 tablets by mouth daily POTASSIUM CHLORIDE BUBBA CR [id number] Uriah Tamayoutzman Start: 08-06-2015 take 4 tablets by mo uth once daily, then take 20 tablets by mouth KLOR-CON M20 20 MEQ CR-TABS 4 tablets by mouth daily POTASSIUM CHLORIDE BUBBA CR [id number] Uriah Ireland DO Completed/Discontinued Medications Medication Drug Class(es) Dates Sig (Normalized) Sig (Original) acetaminophen 325 mg / HYDROcodone bitartrate 5 mg oral tablet (8 sources) Opioid Agonist Start: 06-06-2018 End: 06-09-2018 Hydrocodone-Acetami nophen 1 TABLET tablet Discontinued 1 {tbl} PO EVERY 4 HOURS NEEDED as needed for Pain 15 June 06, 2018 12:00am June 08, 2018 12:00am June 09, 2018 12:09am Start: 06-06-2018 End: 06-09-2018 take 1 tablet by mouth every four hours as needed Hydrocodone-Acetaminophen Discontinued 1 TABLET PO EVERY 4 HOURS NEEDED 15 June 06, 2018 12:00am June 09, 2018 12:09am azithromycin 250 mg oral tablet (11 sources) Macrolide Antimicrobial Start: 07-24-2022 End: 12-19-2022 Azithromycin 250 mg tablet Discontinued 250 mg PO daily July 24, 2022 12:00am December 19, 2022 11:16am 2 tablets today, then 1 tablet daily on days 2 through 11 Start: 10-02-2021 End: 07-24-2022 Azithromycin (Zithromax Z-Pa k) 250 mg tablet Discontinued 0 PO .COMPLEX October 02, 2021 12:00am July 24, 2022 10:22am For 250 mg dose pack: take 500 mg today (day 1), then 250 mg for 4 days (days 2-5) PO benzonatate 200 mg oral capsule (3 sources) Non-narcotic Antitussive Start: 07-24-2022 End: 12-19-2022 take 1 capsule by mouth three times daily as needed for cough Benzonatate 200 mg capsule Discontinued 200 mg PO THREE TIMES A DAY as needed for cough July 24, 2022 12:00am December 19, 2022 11:16am Calcium (3 sources) Phosphate Binder, Calcium Start: 08-06-2015 take 2 tablets by mouth once daily CALCIUM 600 MG TABS 2 tablets by mouth daily CALCIUM [id number] Uriah Ireland DO ciprofloxacin 500 mg oral tablet (15 sources) Quinolone Antimicrobial Start: 12-11-2021 End: 07-24-2022 take 1 tablet by mouth twice daily Ciprofloxacin Hcl 500 mg tablet Discontinued 500 mg PO TWICE A DAY December 11, 2021 12:00am July 24, 2022 10:22am Start: 01-24-2021 End: 10-02-2021 take 1 tablet by mouth twice daily Ciprofloxacin Hcl 500 mg tablet Discontinued 500 mg PO TWICE A DAY January 24, 2021 1:00am October 02, 2021 9:19am diclofenac sodium 0.01 mg/mg topical gel (11 sources) Nonsteroidal Anti-inflammatory Drug Start: 05-23-2018 End: 10-08-2020 apply 2 g topically once as needed for pain Diclofenac Sodium (Voltaren) 1 % gel Discontinued 2 g TOPICAL ONCE as needed for Pain May 23, 2018 12:00am October 08, 2020 11:07am Start: 05-23-2018 End: 10-08-2020 apply 2 g topically once Diclofenac Sodium (Voltaren) 1 % gel Discontinued 2 GM TOPICAL ONCE May 23, 2018 12:00am October 08, 2020 11:07am Start: 08-06-2015 VOLTAREN 1 % G EL apple 2-4 grams to affected area up to four times daily DICLOFENAC SODIUM [id number] Uriah Alanis Ireland DO escitalopram 20 mg oral tablet (3 sources) Serotonin Reuptake Inhibitor Start: 08-06-2015 take 1 tablet by mouth once daily LEXAPRO 20 MG TABS 1 tablet by mouth daily ESCITALOPRAM OXALATE [id number] Uriah A Beka DO gabapentin 300 mg oral capsule (11 sources) Anti-epileptic Agent Start: 05-23-2018 End: 04-02-2024 take 1 capsule by mouth three times daily as needed for pain Gabapentin 300 mg capsule Discontinued 300 mg PO THREE TIMES A DAY as needed for Pain May 23, 2018 12:00am April 02, 2024 11:54am Start: 08-06-2015 take 1-2 capsules by mouth once daily GABAPENTIN 300 MG CAPS 1-2 capsules by mouth daily GABAPENTIN [id number] Uriah A Beka DO hydroCHLOROthiazide 25 mg oral tablet (3 sources) Thiazide Diuretic Start: 08-06-2015 take 1 tablet by mouth once daily HYDROCHLOROTHIAZIDE 25 MG TABS 1 tablet by mouth daily HYDROCHLOROTHIAZIDE [id number] Uriah Ireland DO hydroxychloroquine sulfate 200 mg oral tablet (3 sources) Antimalarial, Antirheumatic Agent Start: 08-06-2015 take 2 tablets by mouth once daily PLAQUENIL 200 MG TABS 2 tablets by mouth daily HYDROXYCHLOROQUINE SULFATE [id number] Uriah Ireland DO A-QZKHTJZNWVNQ-M06-B6-B 2 (3 sources) Start: 08-06-2015 take 1 tablet by mouth once daily CEREFOLIN 6-1-50-5 MG TABS 1 tablet by mouth daily O-NVHAVYJZEQQZ-C59-B6- B2 [id number] Uriah Ireland DO leflunomide 20 mg oral tablet (3 sources) Antirheumatic Agent Start: 08-06-2015 take 1 tablet by mouth once daily ARAVA 20 MG TABS 1 tablet by mouth daily LEFLUNOMIDE [id number] Uriah Ireland DO Lmefol Hu-Vbhnpz-Jgc81-Algal (6 sources) Start: 04-02-2019 End: 10-08-2020 Lmefol Aw-Imutyf-Szy10-Algal Discontinued 1 EACH PO DAILY April 02, 2019 12:00am October 08, 2020 10:07am Start: 04-02-2019 End: 10-08-2020 Lmefol Oi-Kxgrgo-Scl49-Algal Discontinued 1 EACH PO DAILY April 02, 2019 1:00am October 08, 2020 11:07am Lmefol Ng-Kavzgj-Wpk85-Algal 1 EACH tablet (2 sources) Start: 04-02-2019 End: 10-08-2020 Lmefol Gl-Evrqsp-Kiv79-Algal 1 EACH tablet Discontinued 1 NMA PO DAILY April 02, 2019 1:00am October 08, 2020 11:07am nitrofurantoin, macrocrystals 25 mg / nitrofurantoin, monohydrate 75 mg oral capsule (2 sources) Nitrofuran Antibacterial Start: 04-02-2024 End: 04-07-2024 take 1 capsule by mouth every twelve hours at mealtime Nitrofurantoin Monohyd/M-Cryst (Macrobid) 100 mg capsule Discontinued 100 mg PO Q12H 10 5 April 02, 2024 1:00am April 06, 2024 1:00am April 07, 2024 1:11am must administer with a meal/food pantoprazole 40 mg delayed release oral tablet (8 sources) Proton Pump Inhibitor Start: 05-23-2018 End: 10-08-2020 take 1 tablet by mouth once daily Pantoprazole 40 mg tablet,delayed release (DR/EC) Discontinued 40 mg PO DAILY May 23, 2018 12:00am October 08, 2020 11:07am predniSONE 10 mg oral tablet (11 sources) Start: 12-19-2022 End: 04-02-2024 take 4 tablets by mouth once daily, then take 3 tablets by mouth once daily, then take 2 tablets by mouth once daily, then take 1 tablet by mouth once daily Prednisone 10 mg tablet Discontinued 10 mg PO As Directed December 19, 2022 12:00am April 02, 2024 11:54am 4 tablets daily x3 days, then 3 tablets daily x3 days, then 2 tablets daily x3 days, then 1 tablet daily x3 days Start: 10-08-2020 End: 10-20-2020 Prednisone 10 mg tablet Disc ontinued 10 mg PO daily 10 03October 08, 2020 12:00am October 19, 2020 12:00am October 20, 2020 12:01am Take 4 tabs once daily days 1-3 3 tabs once daily days 4-6 2 tabs once daily days 7-9 and 1 tab once daily days 10-12. traMADol hydrochloride 50 mg oral tablet (20 sources) Opioid Agonist Start: 05-21-2019 End: 10-08-2020 take 1 tablet by mouth every six hours as needed for pain Tramadol 50 MG tablet Discontinued 50 mg PO EVERY 6 HOURS NEEDED as needed for Pain Score 4-5/10 May 21, 2019 12:00am October 08, 2020 11:07am stop all other narcotics Start: 04-09-2019 End: 04-16-2019 take 1 tablet by mouth every six hours as needed for pain Tramadol 50 MG tablet Discontinued 50 mg PO EVERY 6 HOURS NEEDED as needed for Pain Or Fever 06 10April 09, 2019 1:00am April 15, 2019 1:00am April 16, 2019 1:08am take 1 tab by mouth every 6 hours as needed for pain, stop all other narcotics Start: 05-23-2018 End: 04-02-2024 take 2 tablets by mouth every eight hours as needed for pain Tramadol 50 mg tablet Discontinued 100 mg PO Q8H as needed for pain May 23, 2018 12:00am April 02, 2024 11:54am Start: 05-23-2018 take 100 mg by mouth every eight hours Tramadol Active 100 MG PO Q8H May 23, 2018 12:00am Start: 08-06-2015 take 2 tablets by mo uth three times daily as needed for pain TRAMADOL HCL 50 MG TABS 2 tablets by mouth as needed for pain up to three times daily TRAMADOL HCL [id number] Uriah Alanis Beka triamcinolone acetonide 1 mg/ml topical cream (8 sources) Corticosteroid Start: 05-23-2018 End: 10-08-2020 Triamcinolone Acetonide 0.1 % cream Discontinued 1 NMA TOPICAL TWICE A DAY as needed for Rash/Topical Irritation May 23, 2018 12:00am October 08, 2020 11:07am Problems Active Problems Problem Classification Problem Date Documented Da te Episodic/Chronic Allergic reactions (11 sources) Irritant contact dermatitis due to plant; Translations: [Irritant contact dermatitis due to plants, except food] 10-08-2020 Episodic Anal and rectal conditions (8 sources) Anal fistula; Translations: [Anal fistula] 06-06-2018 Episodic Chronic kidney disease (13 sources) Chronic kidney disease stage 3; Translations: [Chronic kidney disease stage 4] Onset: 6 08-06-2015 Chronic Diverticulosis and diverticulitis (8 sources) Diverticula of intestine; Translations: [Diverticulosis of intestine, part unspecified, without perforation or abscess without bleeding] 06-06-2018 Chronic Essential hypertension (11 sources) Hypertensive disorder; Translations: [Essential (primary) hypertension] Onset: 6 08-06-2015 Chronic Hemorrhoids (16 sources) Internal hemorrhoids; Translations: [Other hemorrhoids] 06-06-2018 Episodic Osteoarthritis (3 sources) Degenerative joint disease involving multiple joints; Translations: [Polyosteoarthritis, unspecified] Onset: 6 08-06-2015 Chronic Other connective tissue disease (5 sources) Unspecified rotator cuff tear or rupture of right shoulder, not specified as traumatic; Translations: [Tear of right rotator cuff] 06-06-2018 Episodic Other connective tissue disease (3 sources) Tear of right rotator cuff; Translations: [Unspecified rotator cuff tear or rupture of right shoulder, not specified as traumatic] 06-06-2018 Episodic Other gastrointestinal disorders (8 sources) Irritable bowel syndrome; Translations: [Irritable bowel syndrome without diarrhea] 06-06-2018 Chronic Other gastrointestinal disorders (8 sources) Diarrhea; Translations: [Diarrhea, unspecified] 09-05-2018 Episodic Other gastrointestinal disorders (8 sources) Disorder of gastrointestinal tract; Translations: [Angiodysplasia of colon without hemorrhage] 06-06-2018 Episodic Other nutritional; endocrine; and metabolic disorders (1 source) Hypercalcemia; Translations: [Hypercalcemia] Onset: 5 Chronic Other upper respiratory disease (3 sources) Allergic rhinitis; Translations: [Allergic rhinitis, unspecified] Onset: 6 08-06-2015 Chronic Other upper respiratory infections (15 sources) Acute bacterial sinusitis; Translations: [Acute sinusitis, unspecified] Episodic Pulmonary heart disease (8 sources) H/O: pulmonary embolus; Translations: [Personal history of pulmonary embolism] 06-06-2018 Episodic Comment on above: s/p back surgery- 29 10 Residual codes; unclassified (8 sources) History of operative procedure on shoulder; Translations: [Other specified postprocedural states] 06-06-2018 Episodic Comment on above: 2017 Residual codes; unclassified (8 sources) History of colonoscopy; Translations: [Other specified postprocedural states] 06-06-2018 Episodic Comment on above: 12/18/17 Residual codes; unclassified (8 sources) H/O Spinal surgery; Translations: [Other specified postprocedural states] 06-06-2018 Episodic Rheumatoid arthritis and related disease (8 sources) Rheumatoid arthritis; Translations: [Rheumatoid arthritis, unspecified] 06-06-2018 Chronic Unclassified (2 sources) Screening for malignant neoplasm of breast ; Translations: [Other specified health status] Onset: 6 08-06-2015 Unclassified (2 sources) Screening for osteoporosis ; Translations: [Other specified health status] Onset: 6 08-06-2015 Urinary tract infections (16 sources) Urinary tract infectious disease; Translations: [Urinary tract infection, site not specified] 01-24-2021 Episodic Past or Other Problems Problem Classification Problem Date Documented Da te Episodic/Chronic Genitourinary symptoms and ill-defined conditions (1 source) Frequency of micturition; Translations: [Frequency of micturition] Onset: 04-23-2024 Episodic Other connective tissue disease (2 sources) Disorder of rotator cuff; Translations: [Unspecified rotator cuff tear or rupture of right shoulder, not specified as traumatic] Onset: 12-13-2016 12-27-2016 Episodic Other non-traumatic joint disorders (2 sources) Shoulder pain; Translations: [Pain in right shoulder] Onset: 12-13-2016 12-27-2016 Episodic Results Test Name Value Interpretation Reference Range Facility Basic Metabolic Profile (BMP )on 07-03-2024 BUN/CRE 12.4 RATIO Normal 10-20 [facility] Comment on above: Performed By: #### L 500.2500 #### [facility] [address] [facility] [address] Calcium [Mass/Vol] 9.5 mg/dL Normal 7.6-11.0 [facility] Comment on above: Performed By: #### L 500.2500 #### [facility] [address] [place], [address] Chloride [Moles/Vol] 105 mmol/L Normal 98-108 [facility] Comment on above: Performed By: #### L 500.2500 #### [facility] [address] [place], [address] CO2 [Moles/Vol] 23.1 mmol/L Normal 21.0-32.0 [facility] Comment on above: Performed By: #### L 500.2500 #### [facility] [address] [place], [address] Creatinine [Mass/Vol] 1.76 mg/dL High 0.70-1.[address] [facility] Comment on above: Performed By: #### L 500.2500 #### [facility] [address] [place], [address] GAP 12 Normal 5-15 [facility] Comment on above: Performed By: #### L 500.2500 #### [facility] [address] [place], [address] GFR/1.73 sq M.predicted among non-blacks MDRD (S/P/Bld) [Vol rate/Area] 29 mL/min/{1.73_m2} Low >60 [facility] Comment on above: Result Comment: mL/m in/1.73m2 CKD-EPI Creatinine Equation (2020) Performed By: #### L 500.2500 #### [facility] [address] [place], [address] Glucose [Mass/Vol] 91 mg/dL Normal 70-99 [facility] Comment on above: Performed By: #### L 500.2500 #### [facility] [address] [place], [address] Potassium [Moles/Vol] 4.3 mmol/L Normal 3.3-5.[address] [facility] Comment on above: Performed By: #### L 500.2500 #### [facility] [address] [place], [address] Sodium [Moles/Vol] 140 mmol/L Normal 133-145 [facility] Comment on above: Performed By: #### L 500.2500 #### [facility] [address] [place], [address] Urea nitrogen [Mass/Vol] 22 mg/dL High 4-19 [facility] Comment on above: Performed By: #### L 500.2500 #### [facility] [address] [place], [address] Vitamin D 1,25-Dihydroxyon 0 05-15-2024 VIT D 1,25 DIHY 31.0 pg/mL Normal 24.8-81.5 [facility] Comment on above: Result Comment: Perf ormed at: [facility] - [facility] [address] [id number] Advisory Intern: Shauna Swann MD, Phone: [phone] Performed By: #### L 3300.0960 #### [facility] [address] [place], [place], [address] 1,25-dihydroxyvitamin D3 [Ma ss/Vol]Ordered By: Yudith Vega on 05-13-2024 Vitamin D 1,25-Dihydroxy 31.0 pg/mL 24.8-81.5 [facility] Comment on above: Performed at: [facility] - [facility] [address] [id number] Director: Shauna Swann MD, Phone: [phone] Calcium ionizedOrdered By: Nickolas Vega on 05-13-2024 Ionized Calcium 1.30 mmol/L 1.09-1.30 [facility] L501.2276on 05-13-2024 Ionized Calcium 1.30 mmol/L Normal 1.09-1.30 [facility] Comment on above: Performed By: #### L 501.2276 #### [facility] [address] [place], [place], [id number] BUN/creatinine ratioOrdered By: Yudith Vega on 05-09-2024 Urea nitrogen/Creatinine [Mass ratio] 13.5 mg/mg 10-20 [facility] Carbon dioxide measurementOr dered By: Yudith Vega on 05-09-2024 CO2 [Moles/Vol] 22.3 mmol/L 22.0-29.0 [facility] Chloride measurementOrdered By: Yudith Vega on 05-09-2024 Chloride [Moles/Vol] 105 mmol/L 96-108 [facility] GFR/1.73 sq M.predicted yovani g non-blacks MDRD (S/P/Bld) [Vol rate/Area]Ordered By: Yudith Vega on 05-09-2024 Estimated GFR (MDRD) Non-Af Amer 27 Low >60 [facility] Comment on above: mL/min/1.73m2 CKD-EP I Creatinine Equation (2020) Intact parathyroid hormone ( iPTH) measurementOrdered By: Yudith Vega on 05-09-2024 Parathyroid Hormone (Intact) 25 pg/mL [facility] L506.1001on 05-09-2024 Vitamin D 25-OH 40.1 ng/mL Normal -100 [facility] Comment on above: Result Comment: Magdalena min D Status Deficiency: <20 ng/mL (50nmol/L) Insufficiency: 20-30 ng/mL (50-75 nmol/L) Sufficiency: 30-100 ng/mL (75-250 nmol/L) Toxicity: >100 ng/mL (>250 nmol/L) Performed By: #### L 509.1000, L500.3600, L506.1001 #### [facility] [address] [place], [address] No Panel InformationOrdered By: Yudith Vega on 05-09-2024 Vitamin D 25-Hydroxy 40.1 ng/mL - [facility] Comment on above: Vitamin D StatusDefi ciency: <20 ng/mL (50nmol/L)Insufficiency: 20-30 ng/mL (50-75 nmol/L)Sufficiency: 30-100 ng/mL (75-250 nmol/L)Toxicity: >100 ng/mL (>250 nmol/L) PTHINon 05-09-2024 PTH 25 pg/mL Normal [facility] Comment on above: Performed By: #### L 509.1000, L500.3600, L506.1001 #### [facility] [address] [place], [address] Renal Profileon 05-09-2024 Albumin [Mass/Vol] 4.1 g/dL Normal 3.4-4.8 [facility] Comment on above: Performed By: #### L 509.1000, L500.3600, L506.1001 #### [facility] [address] [place], [address] BUN/CRE 13.5 RATIO Normal - [facility] Comment on above: Performed By: #### L 509.1000, L500.3600, L506.1001 #### [facility] [address] [place], [address] Calcium [Mass/Vol] 11.0 mg/dL Normal 7.6-11.0 [facility] Comment on above: Performed By: #### L 509.1000, L500.3600, L506.1001 #### [facility] [address] [place], [address] Chloride [Moles/Vol] 105 mmol/L Normal 96-108 [facility] Comment on above: Performed By: #### L 509.1000, L500.3600, L506.1001 #### [facility] [address] [place], [address] CO2 [Moles/Vol] 22.3 mmol/L Normal 22.0-29.0 [facility] Comment on above: Performed By: #### L 509.1000, L500.3600, L506.1001 #### [facility] [address] [place], [address] Creatinine [Mass/Vol] 1.89 mg/dL High 0.70-1.[address] [facility] Comment on above: Performed By: #### L 509.1000, L500.3600, L506.1001 #### [facility] [address] [place], [address] GFR/1.73 sq M.predicted among non-blacks MDRD (S/P/Bld) [Vol rate/Area] 27 mL/min/{1.73_m2} Low >60 [facility] Comment on above: Result Comment: mL/m in/1.73m2 CKD-EPI Creatinine Equation (2020) Performed By: #### L 509.1000, L500.3600, L506.1001 #### [facility] [address] [place], [address] Glucose [Mass/Vol] 104 mg/dL High 70-99 [facility] Comment on above: Performed By: #### L 509.1000, L500.3600, L506.1001 #### [facility] [address] [place], [address] Potassium [Moles/Vol] 4.8 mmol/L Normal 3.3-5.[address] [facility] Comment on above: Result Comment: Hemo lysis present, Results??could be affected. ?? Performed By: #### L 509.1000, L500.3600, L506.1001 #### [facility] [address] [place], [address] Sodium [Moles/Vol] 141 mmol/L Normal 133-145 [facility] Comment on above: Performed By: #### L 509.1000, L500.3600, L506.1001 #### [facility] [address] [place], [address] Urea nitrogen [Mass/Vol] 26 mg/dL High 4-19 [facility] Comment on above: Performed By: #### L 509.1000, L500.3600, L506.1001 #### [facility] [address] [place], [address] Serum creatinine measurement (mass/volume)Ordered By: Yudith Vega on 05-09-2024 Creatinine [Mass/Vol] 1.89 mg/dL High 0.70-1.[address] [facility] Serum glucose measurement (m ass/volume)Ordered By: Yudith Vega on 05-09-2024 Glucose [Mass/Vol] 104 mg/dL High 70-99 [facility] Serum or plasma albumin kat urement (mass/volume)Ordered By: Yudith Vega on 05-09-2024 Albumin [Mass/Vol] 4.1 g/dL 3.4-4.8 [facility] Serum or plasma calcium kat urement (mass/volume)Ordered By: Yudith Vega on 05-09-2024 Calcium [Mass/Vol] 11.0 mg/dL 7.6-11.0 [facility] Serum or plasma potassium me asurementOrdered By: Yudith Vega on 05-09-2024 Potassium [Moles/Vol] 4.8 mmol/L 3.3-5.[address] [facility] Comment on above: Hemolysis present, R esults could be affected. Serum or plasma sodium measu rement (moles/volume)Ordered By: Yudith Vega on 05-09-2024 Sodium [Moles/Vol] 141 mmol/L 133-145 [facility] Serum or plasma urea nitroge n measurement (mass/volume)Ordered By: Yudith Vega on 05-09-2024 Urea nitrogen [Mass/Vol] 26 mg/dL High 4-19 [facility] Serum phosphorus measurement Ordered By: Yudith Vega on 05-09-2024 Phosphorus Level 3.2 mg/dL 2.7-4.5 [facility] Urine Cultureon 04-04-2024 [facility] Escherichia coli [place] Count >100,000 Escherichia coli: REACTION Ampicillin Islt DON 8 Ampicillin+Sulbac Islt DON <=2 S Cefepime Islt DON <=0.12 S cefTRIAXone Islt DON <=0.25 S Ciprofloxacin Islt DON <=0.06 S B-Lactamase Extended Susc Islt NEG Gentamicin Islt DON <=1 S levoFLOXacin Islt DON <=0.12 S Meropenem Islt DON <=0.25 S Nitrofurantoin Islt DON <=16 S Pip+Tazo Islt DON <=4 S TMP SMX Islt DON <=20 S Normal [facility] Comment on above: Performed By: #### M 100.2200 #### [facility] [address] [place], [address] Laboratory - Chemistry and C hemistry - challengeon 04-02-2024 Bilirubin Ql (U) Negative [facility] Glucose Ql (U) Negative [facility] Ketones Ql (U) Trace (5) [facility] pH (U) 6.5 [pH] [facility] Specific gravity (U) [Rel density] 1.010 [facility] Urobilinogen (U) [Mass/Vol] 0.3299838 mg/dL [facility] - Hematology and Cell countson 04-02-2024 Hemoglobin Ql (U) Moderate [facility] - Specimen inform ationon 04-02-2024 Clarity (U) Cloudy [facility] Color (U) Yellow [facility] - Urinalysison Nitrite Ql (U) Positive [facility] Protein Ql (U) 1+ [facility] No Panel Informationon 04-02 Urine Leukocytes Positive [facility] Comment on above: Moderate Urine Non-Hemolyzed Blood Non-Hemolyzed [facility] Visit Reporton 0 04-02-2024 Urgent Care Visit Report [facility] [address] , [address] [place] [address] OFFICE VISIT Date of Service: 04/02/24 MR#: [id number] Acct: [id number] Name: MARINMARIALUISAJam DUENAS Rep #: [id number] : 1945 Provider: ELKIN Wei Age/Sex: 78/F Location: [facility] Status: Signed Intake Vital Signs 12/11/21 09:03 04/02/24 10:38 Height 5 ft 0.5 in 5 ft 0.5 in Weight: 117 lb 2 oz BMI 22.4 BP 124/78 H Position Sitting Pulse 77 Temp 97.8 F Temp Source Oral Pulse Oximetry (%) 100 Oxygen Delivery Method room air Intake Visit Reasons: CONCERN FOR UTI Allergies Penicillins Allergy (Unknown, Verified 04/02/24 10:54) rash Sulfa (Sulfonamide Antibiotics) Allergy (Unknown, Verified 04/02/24 10:54) breathing issues grass pollen Allergy (Verified 04/02/24 10:54) unknown mold Allergy (Verified 04/02/24 10:54) unknown tree and shrub pollen Allergy (Verified 04/02/24 10:54) unknown Medications ???Medication ???Instructions ???Recorded ???Confirmed ???Type [id number] 12 6 mg-5 1 tab PO DAILY 07/24/22 04/02/24 History mg-50 mg-1 mg tablet (Cerefolin) nitrofurantoin 100 mg PO Q12H 5 days #10 caps 04/02/24 04/02/24 Rx monohydrate/macrocry stals 100 mg capsule (Macrobid) potassium chloride 20 mEq 20 meq PO QDAY 04/02/24 04/02/24 History tablet,extended release(part/cryst) Have you fallen in the past year?: No Nurse's Note: Patient has concerns for a UTI. Patient has frequency and Left side pain that has been going on a week. [facility] Medical History (Updated 12/19/22 @ 11:21 by Franc GRANGER, PA) Contact dermatitis Acute pharyngitis, unspecified Acute sinusitis, unspecified Urinary tract infection with hematuria Diarrhea Anal fistula Hx pulmonary embolism Diverticulosis AV malformation of gastrointestinal tract Rotator cuff tear, right External hemorrhoids Internal hemorrhoid Rheumatoid arthritis IBS (irritable bowel syndrome) Chronic kidney disease, stage IV (severe) Hypertension Surgical History History of hemorrhoidectomy ( 06/2018) Hx of colonoscopy Hx of appendectomy Hx of hysterectomy Hx of cholecystectomy History of back surgery Hx of shoulder surgery Hx of external ear surgery Family History Father Arthritis Mother Diabetes Social History Smoking Status: Never smoker second hand exposure: No alcohol intake: former substance use type: does not use caffeine: Yes what type of physical activity do you participate in: other details: Patient goes to [facility] frequency: 3-4 times per week HPI HPI Details: MARIALUISA FUNES, is a 78 F who presents to the office today for [facility] for approximately 7 day history of dysuria and urinary frequency with suprapubic pressure. No complaints of fever, chills, sweats, lightheadedness/dizz iness, nausea/vomiting, or chest pain/shortness of breath/dyspnea on exertion/mid-back pain. No changes in color/ character of urine or stool. No byus-kjo-pgmpboc products taken to assist, though admits to trying to drink more water than usual to help, flush it out though without improvement therefore here today for evaluation. No other associated symptoms and no alleviating/aggravat ing factors. ROS Const Constitutional: No other (As above) Exam Const General: cooperative, healthy appearing and no acute distress Orientation: alert, awake and oriented x3 Chest Chest palpation inspection: normal inspection of the chest Resp Effort Inspection: normal respiratory effort and able to speak in complete sentences Auscultation: Bilateral: Clear to Auscultation Cardio Palpation: normal PMI Rate: regular rate Rhythm: regular rhythm Heart Sounds: S1 normal, S2 normal, no gallops, no murmurs and no rubs Pulses: radial pulses present GI Inspection: normal to inspection Palpation: soft and tender suprapubic (Patient describes upon self-palpation) General: No CVA tenderness Skin General: no rashes or lesions noted Neuro General: patient alert, patient awake and patient oriented x3 Cognition: normal cognition Speech: speech normal Psych Appearance: grossly normal Mental Status: mental status grossly normal Mood: congruent mood Affect: normal affect Speech and Movement: speech and movement normal Attitude: cooperative Diagnoses Urinary tract infection N39.0 Assessment and Plan Assessment and Plan (1) Urinary tract infection: Status: Acute Plan: See POC results; urine sent to lab for UA and C/S. Macrobid as prescribed today. Supportive measures as instructed today. Follow-up with PCP in 3 to 5 days should symptom (more content not included)... Normal [facility] Urine cultureOrdered By: Casey Cortés on 04-02-2024 Bacteria identified Cx Nom (U) Escherichia coli Abnormal [facility] Lipid Profileon 11-23-2023 Cholesterol [Mass/Vol] 154 mg/dL Normal 200 [facility] Comment on above: Result Comment: <200 mg/dL Desirable 200-240 mg/dL Borderline >240 mg/dL High Risk Performed By: #### L 500.3400, L500.4100 #### [facility] [address] [place], [place], [id number] Cholesterol in HDL [Mass/Vol] 113 mg/dL Normal [facility] Comment on above: Result Comment: The drugs N-Acetylcysteine and Metamizole may falsely depress this assay. Reference Range HDL <40 mg/dL Low HDL Cholesterol HDL >or= 60 mg/dL High HDL Cholesterol Performed By: #### L 500.3400, L500.4100 #### [facility] [address] [place], [address] Cholesterol in LDL [Mass/Vol] 27 mg/dL Normal 0-130 [facility] Comment on above: Performed By: #### L 500.3400, L500.4100 #### [facility] [address] [place], [address] Cholesterol in VLDL [Mass/Vol] 14 mg/dL Normal 5-40 [facility] Comment on above: Performed By: #### L 500.3400, L500.4100 #### [facility] [address] [place], [address] Triglyceride [Mass/Vol] 69 mg/dL Normal [facility] Comment on above: Result Comment: The drugs N-Acetylcysteine and Metamizole may falsely depress this assay. Serum Triglycerides Reference Interval Normal <150 mg/dL Borderline high 150 - 199 mg/dL High 200 - 499 mg/dL Very High > or = 500 mg/dL Performed By: #### L 500.3400, L500.4100 #### [facility] [address] [place], [address] Liver Profileon 11-23-2023 Albumin [Mass/Vol] 3.4 g/dL Normal 3.2-5.0 [facility] Comment on above: Performed By: #### L 500.3400, L500.4100 #### [facility] [address] [place], [address] ALK P 53 U/L Normal 45-117 [facility] Comment on above: Performed By: #### L 500.3400, L500.4100 #### [facility] [address] [place], [address] ALT [Catalytic activity/Vol] 28 U/L Normal 13-56 [facility] Comment on above: Performed By: #### L 500.3400, L500.4100 #### [facility] [address] [place], [address] AST [Catalytic activity/Vol] 32 U/L Normal 15-37 [facility] Comment on above: Performed By: #### L 500.3400, L500.4100 #### [facility] [address] [place], [address] Bilirubin [Mass/Vol] 0.60 mg/dL Normal 0.20-1.00 [facility] Comment on above: Result Comment: For patients on eltrombopag therapy, use of Dimension [place] TBIL is not recommended. Performed By: #### L 500.3400, L500.4100 #### [facility] [address] [place], [address] Bilirubin.direct [Mass/Vol] 0.16 mg/dL Normal 0.00-0.30 [facility] Comment on above: Performed By: #### L 500.3400, L500.4100 #### [facility] [address] [place], [address] Globulin (S) [Mass/Vol] 3.6 g/dL Normal 2.2-4.2 [facility] Comment on above: Performed By: #### L 500.3400, L500.4100 #### [facility] [address] [place], [address] T PROT 7.0 g/dL Normal 6.4-8.2 [facility] Comment on above: Performed By: #### L 500.3400, L500.4100 #### [facility] [address] [place], [address] Basophil percentageOrdered B y: Yudith Vega on 06-01-2023 Basophil percentage 3.0 mg/dL 2.5-4.9 [facility] Chloride [Moles/Vol] 106 mmol/L 98-107 [facility] Glucose [Mass/Vol] 94 mg/dL 74-106 [facility] Potassium [Moles/Vol] 3.2 mmol/L 3.5-5.[address] [facility] Sodium [Moles/Vol] 141 mmol/L 136-145 [facility] Laboratory - Chemistry and C hemistry - challengeOrdered By: Yudith Vega on 06-01-2023 CO2 [Moles/Vol] 26.0 mmol/L 21.0-32.0 [facility] Urea nitrogen/Creatinine [Mass ratio] 12.2 mg/mg 10-20 [facility] No Panel InformationOrdered By: Yudith Vega on 06-01-2023 Estimated GFR (MDRD) Amer 31 mL/min >60 [facility] Comment on above: GFR Calc Estimated GFR (MDRD) Non-Af Amer 26 mL/min >60 [facility] Comment on above: Non- GFR Calc Serum or plasma calcium kat urement (mass/volume)Ordered By: Yudith Vega on 06-01-2023 Calcium [Mass/Vol] 9.8 mg/dL 8.5-10.1 [facility] Serum or plasma creatinine m easurement (mass/volume)Ordered By: Yudith Vega on 06-01-2023 Creatinine [Mass/Vol] 1.97 mg/dL 0.55-1.[address] [facility] Comment on above: The validity of the calculated GFR & GFRAA in patients over 70 years has not been determined. Clinical correlation is essential. Serum or plasma urea nitroge n measurement (mass/volume)Ordered By: Yudith Vega on 06-01-2023 Urea nitrogen [Mass/Vol] 24 mg/dL 7-18 [facility] Thin prep Papanicolaou smear with manual screeningOrdered By: Yudith Vega on 06-01-2023 Thin prep Papanicolaou smear with manual screening 3.4 g/dL 3.2-5.0 [facility] Basophil percentageOrdered B y: Dr. Vega on 06-19-2022 Basophil percentage 3.8 mg/dL 2.5-4.9 [facility] Chloride [Moles/Vol] 107 mmol/L 98-107 [facility] Glucose [Mass/Vol] 107 mg/dL 74-106 [facility] Comment on above: Fasting Glucose resu lt from 100 to 125 mg/dL suggests IMPAIRED HOMEOSTASIS per A.D.A. criteria. Potassium [Moles/Vol] 3.6 mmol/L 3.5-5.[address] [facility] Sodium [Moles/Vol] 138 mmol/L 136-145 [facility] Laboratory - Chemistry and C hemistry - challengeOrdered By: Dr. Vega on 06-19-2022 CO2 [Moles/Vol] 26.0 mmol/L 21.0-32.0 [facility] Urea nitrogen/Creatinine [Mass ratio] 12.5 mg/mg 10-20 [facility] No Panel InformationOrdered By: Dr. Vega on 06-19-2022 Estimated GFR (MDRD) Amer 34 mL/min >60 [facility] Comment on above: GFR Calc Estimated GFR (MDRD) Non-Af Amer 28 mL/min >60 [facility] Comment on above: Non- GFR Calc Serum or plasma albumin kat urement (mass/volume)Ordered By: Dr. Vega on 06-19-2022 Albumin [Mass/Vol] 3.2 g/dL 3.2-5.0 [facility] Serum or plasma calcium kat urement (mass/volume)Ordered By: Dr. Vega on 06-19-2022 Calcium [Mass/Vol] 9.9 mg/dL 8.5-10.1 [facility] Serum or plasma creatinine m easurement (mass/volume)Ordered By: Dr. Vega on 06-19-2022 Creatinine [Mass/Vol] 1.84 mg/dL 0.55-1.[address] [facility] Comment on above: The validity of the calculated GFR & GFRAA in patients over 70 years has not been determined. Clinical correlation is essential. Serum or plasma urea nitroge n measurement (mass/volume)Ordered By: Dr. Vega on 06-19-2022 Urea nitrogen [Mass/Vol] 23 mg/dL 7-18 [facility] Culture, urineOrdered By: Dr Kelsea Ireland on 06-10-2022 Bacteria identified Cx Nom (U) Enterobacter cloacae complex [facility] Absolute lymphocyte countOrd ered By: Dr. Ireland on 05-19-2022 Lymphocytes Auto (Unsp spec) [#/Vol] 2.30 10*3/uL 0.83-4.51 [facility] Basophil percentageOrdered B y: Dr. Ireland on 05-19-2022 Basophils/100 WBC (Bld) 0.4 % 0-1 [facility] Eosinophils/100 WBC (Bld) 1.2 % 0-5 [facility] Neutrophils (Bld) [#/Vol] 6.5 10*3/uL 2.0-7.7 [facility] Neutrophils/100 WBC (Bld) 65.3 % 47-70 [facility] WBC (Bld) [#/Vol] 10.0 10*3/uL 4.4-11.0 [facility] Bilirubin Test strip Ql (U)O rdered By: Dr. rIeland on 05-19-2022 Bilirubin Ql (U) Negative Negative [facility] Blood erythrocytes count (nu mber/volume)Ordered By: Dr. Ireland on 05-19-2022 RBC (Bld) [#/Vol] 4.26 10*6/uL 4.2-5.4 [facility] Blood hemoglobin measurement (mass/volume)Ordered By: Dr. Ireland on 05-19-2022 Hemoglobin (Bld) [Mass/Vol] 13.8 g/dL 12.0-15.0 [facility] Blood lymphocytes/100 leukoc ytesOrdered By: Dr. Ireland on 05-19-2022 Lymphocytes/100 WBC (Bld) 23.0 % 19-41 [facility] Blood monocytes/100 leukocyt esOrdered By: Dr. Ireland on 05-19-2022 Monocytes/100 WBC (Bld) 9.4 % 0-10 [facility] Blood platelet mean volumeOr dered By: Dr. Ireland on 05-19-2022 Platelet mean volume (Bld) [Entitic vol] 9.0 fL 6.2-12.0 [facility] Determination of erythrocyte mean corpuscular volume (MCV)Ordered By: Dr. Ireland on 05-19-2022 MCV (RBC) [Entitic vol] 100.7 fL 81-99 [facility] Hematocrit Auto (Bld) [Volum e fraction]Ordered By: Dr. Ireland on 05-19-2022 Hematocrit (Bld) [Volume fraction] 42.9 % 37-47 [facility] Ketones Test strip Ql (U)Ord ered By: Dr. Ireland on 05-19-2022 Ketones Ql (U) Negative Negative [facility] - Hematology and Cell countsOrdered By: Dr. Ireland on 05-19-2022 Erythrocyte distribution width (RBC) [Entitic vol] 57.1 fL 35.1-43.9 [facility] Erythrocyte distribution width (RBC) [Ratio] 15.7 % 11.6-14.6 [facility] Immature granulocytes/100 WBC (Bld) 0.700 % 0.0-0.9 [facility] Comment on above: IG% - Immature Granu locytes (promyelocytes, myelocytes and metamyelocytes) > 1% indicates that a LEFT SHIFT is Present. MCH (RBC) [Entitic mass] 32.4 pg 27.0-32.0 [facility] Nucleated RBC/100 WBC (Bld) [Ratio] 0 % 0-5 [facility] MCHC Auto (RBC) [Mass/Vol]Or dered By: Dr. Ireland on 05-19-2022 MCHC (RBC) [Mass/Vol] 32.2 g/dL 32-[address] [facility] Nitrite Test strip Ql (U)Ord ered By: Dr. Ireland on 05-19-2022 Nitrite Ql (U) Negative Negative [facility] Platelets bldOrdered By: Dr. Ireland on 05-19-2022 Platelets (Bld) [#/Vol] 417 10*3/uL 150-450 [facility] Protein Test strip Ql (U)Ord ered By: Dr. Ireland on 05-19-2022 Protein Ql (U) 15 mg/dl Negative [facility] Urine blood detectionOrdered By: Dr. Ireland on 05-19-2022 RBC Ql (U) 25 /ul Negative [facility] Urine clarityOrdered By: Dr. Ireland on 05-19-2022 Clarity (U) Sl. Cloudy Clear [facility] Urine color determinationOrd ered By: Dr. Ireland on 05-19-2022 Color (U) Yellow Yellow [facility] Urine glucose detectionOrder ed By: Dr. Ireland on 05-19-2022 Glucose Ql (U) Normal mg/dl Normal [facility] Urine leukocyte esterase det ection by dipstickOrdered By: Dr. Ireland on 05-19-2022 Leukocyte esterase Test strip Ql (U) 500 /ul Negative [facility] Urine pHOrdered By: Dr. Gildardo mejia on 05-19-2022 pH (U) 7.0 [pH] 5.0 - 8.0 [facility] Urine specific gravity measu rementOrdered By: Dr. Ireland on 05-19-2022 Specific gravity (U) [Rel density] 1.010 1.002-1.030 [facility] Urobilinogen Auto test strip Ql (U)Ordered By: Dr. Ireland on 05-19-2022 Urobilinogen Ql (U) Normal mg/dl Normal [facility] Basophil percentageOrdered B y: Dr. Vega on 04-27-2022 Basophil percentage 3.8 mg/dL 2.5-4.9 [facility] Chloride [Moles/Vol] 106 mmol/L 98-107 [facility] Glucose [Mass/Vol] 122 mg/dL 74-106 [facility] Comment on above: Fasting Glucose resu lt from 100 to 125 mg/dL suggests IMPAIRED HOMEOSTASIS per A.D.A. criteria. Potassium [Moles/Vol] 4.3 mmol/L 3.5-5.[address] [facility] Sodium [Moles/Vol] 143 mmol/L 136-145 [facility] Laboratory - Chemistry and C hemistry - challengeOrdered By: Dr. Vega on 04-27-2022 CO2 [Moles/Vol] 28.0 mmol/L 21.0-32.0 [facility] Urea nitrogen/Creatinine [Mass ratio] 12.0 mg/mg 10-20 [facility] No Panel InformationOrdered By: Dr. Vega on 04-27-2022 Estimated GFR (MDRD) Amer 29 mL/min >60 [facility] Comment on above: GFR Calc Estimated GFR (MDRD) Non-Af Amer 24 mL/min >60 [facility] Comment on above: Non- GFR Calc Serum or plasma albumin kat urement (mass/volume)Ordered By: Dr. Vega on 04-27-2022 Albumin [Mass/Vol] 3.2 g/dL 3.2-5.0 [facility] Serum or plasma calcium kat urement (mass/volume)Ordered By: Dr. Vega on 04-27-2022 Calcium [Mass/Vol] 10.0 mg/dL 8.5-10.1 [facility] Serum or plasma creatinine m easurement (mass/volume)Ordered By: Dr. Vega on 04-27-2022 Creatinine [Mass/Vol] 2.09 mg/dL 0.55-1.[address] [facility] Comment on above: The validity of the calculated GFR & GFRAA in patients over 70 years has not been determined. Clinical correlation is essential. Serum or plasma urea nitroge n measurement (mass/volume)Ordered By: Dr. Vega on 04-27-2022 Urea nitrogen [Mass/Vol] 25 mg/dL 7-18 [facility] Basophil percentageon 2021 Basophil percentage 2.9 mg/dL 2.5-4.9 [facility] Work Phone: Chloride [Moles/Vol] 104 mmol/L 98-107 [facility] Work Phone: Glucose [Mass/Vol] 97 mg/dL 74-106 [facility] Work Phone: Potassium [Moles/Vol] 3.6 mmol/L 3.5-5.[address] [facility] Work Phone: Sodium [Moles/Vol] 138 mmol/L 136-145 [facility] Work Phone: Laboratory - Chemistry and C hemistry - challengeon 10-04-2021 CO2 [Moles/Vol] 29.0 mmol/L 21.0-32.0 [facility] Work Phone: Urea nitrogen/Creatinine [Mass ratio] 9.9 mg/mg 10-20 [facility] Work Phone: No Panel Informationon 10-04 Estimated GFR (MDRD) Amer 35 mL/min >60 [facility] Work Phone: Comment on above: GFR Calc Estimated GFR (MDRD) Non-Af Amer 29 mL/min >60 [facility] Work Phone: Comment on above: Non- GFR Calc Parathyroid Hormone (Intact) 49.2 pg/mL 18.4-80.1 [facility] Work Phone: Serum or plasma albumin kat urement (mass/volume)on 10-04-2021 Albumin [Mass/Vol] 3.5 g/dL 3.2-5.0 [facility] Work Phone: Serum or plasma calcium kat urement (mass/volume)on 10-04-2021 Calcium [Mass/Vol] 9.4 mg/dL 8.5-10.1 [facility] Work Phone: Serum or plasma creatinine m easurement (mass/volume)on 10-04-2021 Creatinine [Mass/Vol] 1.81 mg/dL 0.55-1.[address] [facility] Work Phone: Comment on above: The validity of the calculated GFR & GFRAA in patients over 70 years has not been determined. Clinical correlation is essential. Serum or plasma urea nitroge n measurement (mass/volume)on 10-04-2021 Urea nitrogen [Mass/Vol] 18 mg/dL 7-18 [facility] Work Phone: .Auto Diffon 04-03-2018 Ammonia mass conc (P) 0.50 10 3/mcL Normal 0.15-1.00 [facility] ([place]) Comment on above: Performed By: #### C MARITO DELGADO ANEU #### [address] [address] #### BMP, GFR #### [facility] [address] [place] [address] Basophils #/vol (Bld) 0.00 10 3/mcL Normal 0.00-0.19 [facility] ([place]) Comment on above: Performed By: #### C MARITO DELGADO, ANEU #### [address] [address] #### BMP, GFR #### [address] [address] Basophils/100 WBC (Bld) 0.1 % Normal 0.0-2.5 [facility] ([place]) Comment on above: Performed By: #### C SANDY ADIFF, ANEU #### [place] [address] #### BMP, GFR #### [address] [address] Eosinophils #/vol (Bld) 0.00 10 3/mcL Normal 0.00-0.40 [facility] ([place]) Comment on above: Performed By: #### C BC, ADIFF, ANEU #### [place] [address] #### BMP, GFR #### [address] [address] Eosinophils/100 WBC (Bld) 0.0 % Normal 0.0-7.0 [facility] ([place]) Comment on above: Performed By: #### C MARITO DELGADO, ANEU #### [place] [address] #### BMP, GFR #### [address] [address] Lymphocytes #/vol (Bld) 0.60 10 3/mcL Low 0.77-3.85 [facility] ([place]) Comment on above: Performed By: #### C SANDY ADIFF, ANEU #### [place] [address] #### BMP, GFR #### [address] [address] Lymphocytes/100 WBC (Bld) 4.7 % Low 10.0-50.0 [facility] ([place]) Comment on above: Performed By: #### C BC, ADIFF, ANEU #### [place] [address] #### BMP, GFR #### [address] [address] Monocytes/100 WBC (Bld) 3.7 % Normal 1.7-13.0 [facility] ([place]) Comment on above: Performed By: #### C BC, ADIFF, ANEU #### [address] [address] #### BMP, GFR #### [address] [address] Neutrophils/100 WBC (Bld) 91.5 % High 37.0-80.0 [facility] ([place]) Comment on above: Performed By: #### C BC, ADIFF, ANEU #### [place] [address] [address] #### BMP, GFR #### [address] [address] .GFRon 04-03-2018 GFR 34 ml/min/1.73sqm Normal [facility] ([place]) Comment on above: Result Comment: GFR Population mean for , [...] 15 mL/min/1.73 square meters Performed By: #### C BC, ADIFF, ANEU #### [place] [address] [address] #### BMP, GFR #### [address] [address] GFR Non- 28 ml/min/1.73sqm Normal [facility] ([place]) Comment on above: Result Comment: GFR Population mean for , [...] 15 mL/min/1.73 square meters Performed By: #### C BC, ADIFF, ANEU #### [place] [address] #### BMP, GFR #### [address] [address] .NEUABSon 04-03-2018 Neutrophils #/vol (Bld) 11.90 10 3/mcL High 2.85-6.1 6 [facility] ([place]) Comment on above: Performed By: #### C BC, ADIFF, ANEU #### [place] [address] #### BMP, GFR #### [place] [address] BMPon 04-03-2018 Calcium mass conc 8.3 mg/dL Low 8.4-10.2 [facility] ([place] Comment on above: Performed By: #### C BC, ADIFF, ANEU #### [place] [address] #### BMP, GFR #### [place] [address] Chloride molar conc 109 mmol/L High 98-107 [facility] ([place]) Comment on above: Performed By: #### C BC, ADIFF, ANEU #### [place] [address] #### BMP, GFR #### [place] [id number] CO2 molar conc 23 mmol/L Normal 23-31 [facility] ([place]) Comment on above: Performed By: #### C BC, ADIFF, ANEU #### [place] [address] #### BMP, GFR #### [address] [address] Creatinine mass conc 1.75 mg/dL High 0.55-1.02 [facility] ([place]) Comment on above: Performed By: #### C BC, ADIFF, ANEU #### [address] [address] #### BMP, GFR #### [address] [address] Electrolyte Balance 11.0 mEq/L Normal [facility] ([place]) Comment on above: Performed By: #### C BC, ADIFF, ANEU #### [address] [address] #### BMP, GFR #### [place] [address] Glucose mass conc 128 mg/dL High 83-110 [facility] ([place]) Comment on above: Performed By: #### C BC, ADIFF, ANEU #### [place] [address] #### BMP, GFR #### [address] [address] Potassium molar conc 4.3 mmol/L Normal 3.5-5.1 [facility] ([place]) Comment on above: Performed By: #### C BC, ADIFF, ANEU #### [address] [address] #### BMP, GFR #### [address] [address] Sodium molar conc 143 mmol/L Normal 136-145 [facility] ([place]) Comment on above: Performed By: #### C BC, ADIFF, ANEU #### [address] [address] #### BMP, GFR #### [address] [address] Urea nitrogen mass conc 16 mg/dL Normal 7-18 [facility] ([place]) Comment on above: Performed By: #### C BC, ADIFF, ANEU #### [address] [address] #### BMP, GFR #### [address] [address] Urea nitrogen/Creatinine mass ratio 9 ratio Normal 7-27 [facility] ([place]) Comment on above: Performed By: #### C BC, ADIFF, ANEU #### [address] [address] #### BMP, GFR #### [address] [address] CBCon 04-03-2018 Erythrocyte distribution width Ratio (RBC) 15.6 % High 11.5-14.5 [facility] ([place] Comment on above: Performed By: #### C BC, ADIFF, ANEU #### [place] [address] #### BMP, GFR #### [place] [address] Hematocrit Volume Fraction (Bld) 31.0 % Low 37.0-47.0 [facility] ([place] Comment on above: Performed By: #### C BC, ADIFF, ANEU #### [place] [address] #### BMP, GFR #### [address] [address] Hemoglobin mass conc (Bld) 9.8 G/dL Low 12.0-16.0 [facility] ([place] Comment on above: Performed By: #### C BC, ADIFF, ANEU #### [place] [address] #### BMP, GFR #### [address] [address] MCH Entitic mass (RBC) 27.2 pg Normal 27.0-31.2 [facility] ([place]) Comment on above: Performed By: #### C BC, ADIFF, ANEU #### [address] [address] #### BMP, GFR #### [place] [id number] MCHC mass conc (RBC) 31.7 G/dL Low 33.0-37.0 [facility] ([place] Comment on above: Performed By: #### C BC, ADIFF, ANEU #### [address] [address] #### BMP, GFR #### [address] [address] MCV Entitic volume (RBC) 85.7 fL Normal 80.0-94.0 [facility] ([place] Comment on above: Performed By: #### C BC, ADIFF, ANEU #### [place] [address] #### BMP, GFR #### [place] [address] Platelet mean volume Entitic volume (Bld) 8.4 fL Normal 7.4-10.4 [facility] ([place]) Comment on above: Performed By: #### C BC, ADIFF, ANEU #### [place] [address] #### BMP, GFR #### [address] [address] Platelets #/vol (Bld) 360 10 3/mcL Normal 130-400 A [facility] ([place]) Comment on above: Performed By: #### C BC, ADIFF, ANEU #### [place] [address] #### BMP, GFR #### [place] [address] RBC #/vol (Bld) 3.62 10 6/mcL Low 4.20-5.40 [facility] ([place]) Comment on above: Performed By: #### C BC, ADIFF, ANEU #### [place] [address] #### BMP, GFR #### [address] [address] WBC #/vol (Bld) 13.00 10 3/mcL High 4.60-10.80 [facility] ([place]) Comment on above: Performed By: #### C BC, ADIFF, ANEU #### [place] [address] [place], [place] [address] #### BMP, GFR #### [address] [address] XR SHOULDER MINIMUM 2 VIEWS RIGHTon 04-02-2018 XR SHOULDER MINIMUM 2 VIEWS RIGHT ORIGINAL XR SHOULDER MINIMUM 2 VIEWS RIGHT [...] 3:35:48 PM Sign Date: 04/02/2018 3:36:28 PM Normal [facility] ([place]) Office Visiton 12-13-2016 Alcoholism counseling (procedure) no Invalid Interpretation Code [facility] Work Phone: Documentation of current medications (procedure) Done Invalid Interpretation Code [facility] Work Phone: Tobacco smoking status NHIS Never Invalid Interpretation Code [facility] Work Phone: Tobacco use CPHS Never smoker Invalid Interpretation Code [facility] Work Phone: Lab Report: CBC W/Diff, Auto matedon 09-30-2015 Absolute Neut 5.4 X10 3/UL Invalid Interpretation Code 2.0-7.7 [facility] Work Phone: Basophils/100 WBC Auto (Bld) 0.5 % Invalid Interpretation Code 0-1 [facility] Work Phone: Eosinophils/100 WBC Auto (Bld) 2.2 % Invalid Interpretation Code 0-5 [facility] Work Phone: Erythrocyte distribution width Auto Ratio (RBC) 14.6 % Invalid Interpretation Code 11.6-14.6 [facility] Work Phone: Erythrocyte distribution width Auto Ratio (RBC) 47.5 fL High 35.1-43.9 [facility] Work Phone: Hematocrit Auto Volume Fraction (Bld) 40.0 % Invalid Interpretation Code 37-47 [facility] Work Phone: Hemoglobin mass conc (Bld) 13.1 g/dL Invalid Interpretation Code 12.0-15.0 [facility] Work Phone: Immature granulocytes #/vol (Bld) 0.500 % Invalid Interpretation Code 0.0-0.9 [facility] Work Phone: Immature granulocytes/100 WBC (Bld) 0.500 % Invalid Interpretation Code 0.0-0.9 [facility] Work Phone: Lymphocytes Auto #/vol (Bld) 1.18 X10 3/UL Invalid Interpretation Code 0.83-4.51 [facility] Work Phone: Lymphocytes/100 WBC Auto (Bld) 15.0 % Low 19-41 [facility] Work Phone: MCH Auto Entitic mass (RBC) 29.6 pg Invalid Interpretation Code 27.0-32.0 [facility] Work Phone: MCHC Auto mass conc (RBC) 32.8 G/GL Invalid Interpretation Code 32-36 [facility] Work Phone: MCV Auto Entitic volume (RBC) 90.3 fL Invalid Interpretation Code 81-99 [facility] Work Phone: Monocytes/100 WBC Auto (Bld) 13.6 % High 0-10 [facility] Work Phone: Neutrophils Auto #/vol (Bld) 5.4 X10 3/UL Invalid Interpretation Code 2.0-7.7 [facility] Work Phone: Neutrophils/100 WBC Auto (Bld) 68.2 % Invalid Interpretation Code 47-70 [facility] Work Phone: Platelet mean volume Hank-Kiki Entitic volume (Bld) 10.6 fL Invalid Interpretation Code 6.2-12.0 [facility] Work Phone: Platelets Auto #/vol (Bld) 380 10*3/mm3 Invalid Interpretation Code 150-450 [facility] Work Phone: RBC Auto #/vol (Bld) 4.43 10*6/uL Invalid Interpretation Code 4.2-5.4 [facility] Work Phone: RDW SD 47.5 fL High 35.1-43.9 [facility] Work Phone: WBC Auto #/vol (Bld) 7.9 10*3/uL Invalid Interpretation Code 4.4-11.0 [facility] Work Phone: Lab Report: [facility] Profil 09-30-2015 Albumin mass conc 3.6 g/dL Invalid Interpretation Code 3.4-5.0 [facility] Work Phone: Albumin/Globulin mass ratio 0.9 {ratio} Invalid Interpretation Code 0.9-2.4 [facility] Work Phone: Alkaline phosphatase (ALP) 86 U/L Invalid Interpretation Code 50-136 [facility] Work Phone: ALP enzyme act/vol (Bld) 86 U/L Invalid Interpretation Code 50-136 [facility] Work Phone: ALT enzyme act/vol 26 U/L Invalid Interpretation Code 12-78 [facility] Work Phone: Anion gap 8 mmol/L Invalid Interpretation Code 5-15 [facility] Work Phone: Anion gap 4 molar conc 8 Invalid Interpretation Code 5-15 [facility] Work Phone: AST enzyme act/vol 38 U/L High 15-37 [facility] Work Phone: Bilirubin mass conc 0.40 mg/dL Invalid Interpretation Code 0.20-1.00 [facility] Work Phone: Calcium mass conc 9.6 mg/dL Invalid Interpretation Code 8.5-10.1 [facility] on [facility] Work Phone: Chloride molar conc 105 mmol/L Invalid Interpretation Code 98-107 [facility] Work Phone: CO2 25.0 mmol/L Invalid Interpretation Code 21.0-32.0 [facility] Work Phone: CO2 ppres (BldV) 25.0 mmol/L Invalid Interpretation Code 21.0-32.0 [facility] Work Phone: Creatinine mass conc 2.42 mg/dL High 0.55-1.20 [facility] Work Phone: eGFR (non-black) 25 mL/min/{1.73_m2} Low >60 [facility] Work Phone: EST GFR - AA 25 mL/min Low >60 [facility] Work Phone: GFR/1.73 sq M predicted among non-blacks MDRD vol rate/area (S/P/Bld) 21 mL/min/{1.73_m2} Low >60 [facility] Work Phone: Globulin Calculated mass conc (S) 3.9 g/dL High 2.3-3.5 [facility] Work Phone: Glucose mass conc 104 mg/dL Invalid Interpretation Code 70-110 [facility] Work Phone: Potassium molar conc 4.0 mmol/L Invalid Interpretation Code 3.5-5.1 [facility] Work Phone: Protein mass conc 7.5 g/dL Invalid Interpretation Code 6.4-8.2 [facility] Work Phone: Sodium molar conc 138 mmol/L Invalid Interpretation Code 136-145 [facility] Work Phone: Urea nitrogen mass conc 30 mg/dL High 7-18 [facility] Work Phone: Urea nitrogen/Creatinine mass ratio 12.4 RATIO Invalid Interpretation Code 10-20 [facility] Work Phone: Office Visit: Establish Care on 08-06-2015 Protein mass conc no Invalid Interpretation Code [facility] Work Phone: Protein mass conc Done Invalid Interpretation Code [facility] Work Phone: Tobacco smoking status NHIS Never smoker Invalid Interpretation Code [facility] Work Phone: Tobacco smoking status NHIS Never Invalid Interpretation Code [facility] Work Phone: Vital Signs Date Time Vital Sign Value Performing Clinician Facility 04-02-2024 10:38-0500 Body height 153.[address] Uriah Ireland DO Work Phone: [facility] 04-02-2024 10:38-0500 Body mass index (BMI) [Ratio] 22.4 kg/m2 Dr. Uriah Ireland DO Work Phone: [facility] 04-02-2024 10:38-0500 Body temperature 97.8 [degF] Dr. Uriah Ireland DO Work Phone: [facility] 04-02-2024 10:38-0500 Body weight 53.[address] Uriah Ireland DO Work Phone: [facility] 04-02-2024 10:38-0500 Diastolic blood pressure 78 mm[Hg] Dr. Uriah Ireland DO Work Phone: [facility] 04-02-2024 10:38-0500 Heart rate 77 /min Dr. Uriah Ireland DO Work Phone: [facility] 04-02-2024 10:38-0500 SaO2% (BldA) [Mass fraction] 100 % Dr. Uriah Ireland DO Work Phone: [facility] 04-02-2024 10:38-0500 Systolic blood pressure 124 mm[Hg] Dr. Uriah Ireland DO Work Phone: [facility] 10-02-2021 09:11-0400 Body temperature 98.4 [degF] Dr. Uriah Ireland Work Phone: [facility] Work Phone: 10-02-2021 09:11-0400 Diastolic blood pressure 64 mm[Hg] Dr. Uriah Ireland Work Phone: [facility] Work Phone: 10-02-2021 09:11-0400 Heart rate 79 /min Dr. Uriah Ireland Work Phone: [facility] Work Phone: 10-02-2021 09:11-0400 Respiratory rate 14 /min Dr. Uriah Ireland Work Phone: [facility] Work Phone: 10-02-2021 09:11-0400 SaO2% (BldA) [Mass fraction] 97 % Dr. Uriah Ireland Work Phone: [facility] Work Phone: 10-02-2021 09:11-0400 Systolic blood pressure 126 mm[Hg] Dr. Uriah Ireland Work Phone: [facility] Work Phone: 12-13-2016 07:59-0400 BMI (Body Mass Index) 21.48 kg/m2 [facility] Work Phone: 12-13-2016 07:59-0400 Weight 49.9 kg [facility] Work Phone: 08-06-2015 07:58-0400 BMI (Body Mass Index) 23.43 kg/m2 [facility] Work Phone: 08-06-2015 07:58-0400 Body Temperature 98.3 [degF] [facility] Work Phone: 08-06-2015 07:58-0400 BP Diastolic 84 mm[Hg] [facility] Work Phone: 08-06-2015 07:58-0400 BP Systolic 128 mm[Hg] [facility] Work Phone: 08-06-2015 07:58-0400 BSA (Body Surface Area) 1.5 m2 [facility] Work Phone: 08-06-2015 07:58-0400 Height 152.4 cm [facility] Work Phone: 08-06-2015 07:58-0400 Pulse (Heart Rate) 69 /min [facility] Work Phone: 08-06-2015 07:58-0400 Respiratory Rate 16 /min [facility] Work Phone: 08-06-2015 07:58-0400 Weight 54.43 kg [facility] Work Phone: Encounters Encounter Date Encounter Type Care Provider Facility Start: 09-15-2024 ambulatory Uriah Ireland Facility: [facility] Start: 07-03-2024 End: 07-03-2024 ambulatory Yudith Vega Facility:[facility] Start: 05-13-2024 End: 05-13-[address] Uriah Ireland DO Work Phone: [facility] Work Phone: Start: 05-13-2024 End: 05-13-[address] Yudith Vega DO -Laboratory, Phy Office 3rd Flr Start: 05-13-2024 End: 05-13-2024 ambulatory Yudith Vega Facility:[facility] Start: 05-09-2024 End: 05-09-[address] Uriah Ireland DO Work Phone: [facility] Work Phone: Start: 05-09-2024 End: 05-09-[address] Yudith Vega DO -Laboratory Work Phone: Start: 05-09-2024 End: 05-09-2024 ambulatory Yudith Vega Facility:[facility] Start: 04-02-2024 End: 04-02-2024 Patient encounter procedure Franc GRANGER -Laboratory, Specimen Work Phone: Start: 04-02-2024 End: 04-02-2024 Patient encounter procedure Franc GRANGER [facility] Work Phone: Start: 04-02-2024 End: 04-02-2024 ambulatory Franc GRANGER Facility:[facility] Start: 04-02-2024 End: 04-02-2024 ambulatory Franc GRANGER Facility:[facility] Start: 11-23-2023 End: 11-23-2023 ambulatory Uriah Ireland Facility:[facility] Start: 06-01-2023 End: 06-01-2023 ambulatory [facility] Work Phone: Start: 06-01-2023 End: 06-01-2023 Patient encounter procedure [facility] Work Phone: Start: 06-19-2022 End: 06-19-2022 ambulatory [facility] Work Phone: Start: 06-19-2022 End: 06-19-2022 Patient encounter procedure [facility] Start: 06-08-2022 End: 06-08-2022 ambulatory [facility] Work Phone: Start: 06-08-2022 End: 06-08-2022 Patient encounter procedure [facility]Laboratory, Specimen Start: 05-19-2022 End: 05-19-2022 ambulatory [facility] Work Phone: Start: 05-19-2022 End: 05-19-2022 [facility] Start: 04-27-2022 End: 04-27-2022 ambulatory [facility] Work Phone: Start: 04-27-2022 End: 04-27-2022 Patient encounter procedure [facility] Start: 10-04-2021 End: 10-04-[address] Uriah Ireland Work Phone: [facility] Start: 10-02-2021 End: 10-02-[address] Uriah Ireland Work Phone: [facility] Start: 04-02-2018 End: 04-03-2018 Evaluation and management of inpatient FRANC LOPEZ Facility:[facility] Start: 03-18-2018 End: 03-19-2018 Patient encounter procedure FRANC LOPEZ Facility:[facility] Procedures Date Procedure Procedure Detail Performing Clinician Start: 04-02-[address] Uriah Ireland DO Work Phone: Start: 05-19-2022 Diagnostic radiograp hy of abdomen Start: 08-06-2015 Screening for malign ant neoplasm of breast Screening for breast cancer Ericka Donahue Start: 08-06-2015 Screening for osteoporosis Screening for osteoporosis Ericka Donahue Bacteria identified in Urine by Culture H/O: hysterectomy Hx of hysterectomy Dr. Uriah Ireland Work Phone: H/O: surgery Hx of external e ar surgery Dr. Uriah Ireland Work Phone: Comment on above: Right-2016 due to ca ncer History of appendectomy Hx of appendectom y Dr. Uriah Ireland Work Phone: History of cholecystectomy Hx of cholecystectomy Dr. Uriah Ireland Work Phone: Urine culture Plan of Treatment Date Care Activity Detail Author Start: 12-13-2016 End: 12-13-2016 Appointment Appointment [facility] Work Phone: Start: 01-03-2016 End: 08-06-2015 DEXA scan DEXA scan [facility] Work Phone: Start: 01-03-2016 End: 08-06-2015 Lipid panel [AGGREGATE] *Lipid Profile [facility] Work Phone: Start: 01-03-2016 End: 08-06-2015 Mammogram, screening Mammogram, Screening, both breasts [facility] Work Phone: Payers Date Payer Category Payer Medicare [id number] 2023 Self-pay [id number] 2022 Unknown [id number] 2018 Unknown [id number] 2010 Unknown [id number] 2008 Medicare [id number] 1945 Unknown [id number] 2.16.8 [id number] 1945 Unknown [id number] 2.16.8 [id number] Unknown [id number] 2.16.8 [id number] Unknown [id number] 2.16.8 [id number] Unknown [id number] 2.16.8 [id number] Unknown [id number] 2.16.8 [id number] Unknown [id number] 2.16.8 [id number] Unknown [id number] 2.16.8 [id number] Unknown [id number] 2.16.8 [id number] Social History Date Type Detail Facility Start: 10-02-2021 End: 12-19-2022 Tobacco smoking status VTIS Unknown if ever smoked [facility] Start: 04-02-[address]-sm[address] [facility] Start: 1945 Sex Assigned At Female [facility] Start: 12-19-2022 Tobacco smoking stat us VTIS Never smoked tobacco (finding) [facility] Start: 05-22-2024 End: 05-25-2024 Sex Female (finding) [facility] Evaluation note Note Date & Type Note Facility Evaluation note Diagnosis Onset Date Acute bacterial sinusitis ac havasupai [facility] Work Phone: Evaluation note Note Date & Type Note Facility Evaluation note No assessment information availa ble [facility] Work Phone: Reason for referral (narrative) Note Date & Type Note Facility Reason for referral (narrative) No reason for referral information available [facility] Work Phone: Summary Purpose Family History No Family History Records Found Relationship Condition Age at Onset Recorded Date/T jose eduardo father Arthritis Unknown mother Diabetes mellitus Unknown Advance Directives No Advanced Directives Records Found Advance Directive Response Recorded Date/ Time Living Will Yes May 20, 2019 5:28pm Power of Senior Portfolio Analyst Yes May 19 5:28pm Advance Directive Response Recorded Date/ Time Living Will Yes May 20, 2019 4:28pm Power of Senior Portfolio Analyst Yes May 19 4:28pm Chief Complaint and Reason for Visit Chief Complaint CONCERN FOR SINUS IN FECTION/ILL [id number] Reason for Visit Acute bacterial sinu sitis Chief Complaint ADD XRAY LEFT FLANK PAIN Chief Complaint Admit Date CONCERN FOR UTI April 02, 2024 1 0:38am CONCERN FOR UTI April 02, 2024 1 2:20pm Additional Source Comments INFORMATION SOURCE (unrecogn ized section and content) DATE CREATED AUTHOR 05/21/2018 [facility] ([place]) DATE CREATED AUTHOR AUTHOR'S ORGANIZ ATION 09/18/2024 [facility] Goals (unrecognized section and content) Goals may be documented in a n alternate sectionGoals may be documented in an alternate sectionGoals may be documented in an alternate sectionGoals may be documented in an alternate sectionGoals may be documented in an alternate sectionGoals may be documented in an alternate sectionGoals may be documented in an alternate sectionGoals may be documented in an alternate section Care Teams (unrecognized sec tion and content) Team Status: Active Member Role Status Dates Dr. Uriah Ireland DO Family Provider Active Dr. Uriah Ireland DO Primary Care Provider Active Team Status: Inactive Member Role Status Dates Dr. Uriah Ireland DO Primary Care Provider Active Dr. Yudith Vega DO Attending Provider, Referring Ceferino hanna Active Team Status: Inactive Member Role Status Dates Dr. Uriah Ireland DO Primary Care Prov ider, Attending Provider, Referring Provider Active Team Status: Active Member Role Status Dates Dr. Uriah Ireland DO Primary Care Provider Active Team Status: Inactive Member Role Status Dates Dr. Uriah Ireland DO Primary Care Provider Active Start: April 02, 2024 End: April 02, 2024 Dr. Uriah Ireland DO Referring Provider Active Start: April 02, 2024 End: April 02, 2024 ELKIN Molina Attending Provider Active Start: April 02, 2024 End: April 02, 2024 Team Status: Inactive Member Role Status Dates Dr. Uriah Ireland DO Primary Care Provider Active Start: April 02, 2024 End: April 02, 2024 Franc GRANGER PA Attending Provider Active Start: April 02, 2024 End: April 02, 2024 Franc M Wyles PA, PA Referring Provider Active Start: April 02, 2024 End: April 02, 2024 Team Status: Inactive Member Role Status Dates Dr. Uriah Ireland DO Primary Care Provider Active Start: May 09, 2024 End: May 09, 2024 Dr. Yudith Vega DO Attending Provider Active Start: May 09, 2024 End: May 09, 2024 Dr. Yudith Vega DO Referring Provider Active Start: May 09, 2024 End: May 09, 2024 Team Status: Active Member Role Status Dates Dr. Uriah Ireland DO Primary Care Provider Active Start: May 13, 2024 Dr. Yudith Vega DO Attending Provider Active Start: May 13, 2024 Team Status: Inactive Member Role Status Dates Dr. Uriah Ireland DO Primary Care Provider Active Start: May 13, 2024 End: May 13, 2024 Dr. Yudith Vega DO Attending Provider Active Start: May 13, 2024 End: May 13, 2024 FOR RECORDS PERTAINING TO PATIENTS WHO ARE OR HAVE BEEN ENROLLED IN A CHEMICAL DEPENDENCY/SUBSTANCEABUSE PROGRAM, SOME INFORMATION MAY BE OMITTED. This clinical summary was aggregated from multiple sources. Caution should be exercised in using it in the provision of clinical care. This summary normalizes information from multiple sources, and as a consequence, information in this document may materially change the coding, format and clinical context of patient data. In addition, data may be omitted in some cases. CLINICAL DECISIONS SHOULD BE BASED ON THE PRIMARY CLINICAL RECORDS. [facility] [employer] provides no warranty or guarantee of the accuracy or completeness of information in this document.
== END | disposition home or self-care (01) ==
LOC: LAB.FUTURE 09:45 → LAB 09:49
PROVIDERS: PCP Family Medicine; Referring Provider Internal Medicine Nephrology; Visit Provider Internal Medicine Nephrology
DX: N18.4 Chronic kidney disease, stage 4 (severe) (principal)
CPT/HCPCS: 36415; 80069; 83970

== ENCOUNTER → 2025-02-24 | Outpatient (CLI) | payer OTHER, SELFPAY ==
[2025-02-24 10:54] LABS: Albumin, Serum 4.1 g/dL (3.4-4.8); Anion Gap 14 (5-15); BUN 16 mg/dL (4-19); BUN/Creat Ratio 7.8 RATIO (10-20); Calcium,Total 10.0 mg/dL (7.6-11.0); Carbon Dioxide 22.9 mmol/L (21.0-32.0); Chloride 105 mmol/L (98-108); Glucose 125 mg/dL (70-99); Potassium 3.5 mmol/L (3.3-5.1)
== END | disposition home or self-care (01) ==
PROVIDERS: PCP Family Medicine; Referring Provider Internal Medicine Nephrology; Visit Provider Internal Medicine Nephrology
DX: N18.4 Chronic kidney disease, stage 4 (severe) (principal)
CPT/HCPCS: 36415; 80069